=== PATIENT | male | born 1960 | race Caucasian/White ===

== ENCOUNTER 2016-08-02 18:07 | Inpatient (IN) | payer OTHER ==
[2016-08-02] MEDS ORDERED: SODIUM CHLORIDE 0.9% 1,000 ML IV STA (20:42)
--- NOTE | 2016-08-02 20:51 | ED ---
General Adult HPI - General Chief complaint: Recheck/Abnormal Lab/Rx Stated complaint: ALL OVER PAIN, FATIQUE, HX RA Time Seen by Provider: 08/02/16 20:16 Source: patient, family, RN notes reviewed, old records reviewed Mode of arrival: ambulatory Limitations: no limitations - History of Present Illness Initial comments: Chief complaint and history of present illness this 55-year-old male here with his . The patient has multiple complaints first reports that he becomes very short of breath which is walking 10-15 feet is also put on about 90 pounds this year. He feels bloated, hands are swollen. Stomach is swollen and tender. He reports he thinks he is in a rheumatoid flare. Swollen joints everything hurts. He also has a [place] rash in the scrotum and medial thighs. - Related Data Home Medications Medication Instructions Recorded Confirmed Aclidinium [place] [Tudorza 1 puff INHALATION RT-BID 08/02/16 08/02/16 Pressair] Act 80units/Ml 80 units SQ TUFR 08/02/16 08/02/16 Bumetanide [BUMEX] 2 mg PO BID 08/02/16 08/02/16 Cholecalciferol [Vitamin D3] 2,000 unit PO DAILY 08/02/16 08/02/16 Losartan [Cozaar] 50 mg PO DAILY 08/02/16 08/02/16 Metoprolol Succinate (ER) [Toprol 50 mg PO DAILY 08/02/16 08/02/16 Xl] Mometasone/Formoterol [Dulera 200 2 puff INHALATION RT-BID 08/02/16 08/02/16 Mcg/5 Mcg Inhaler] Multivitamins, Thera [Multivitamin] 1 tab PO DAILY 08/02/16 08/02/16 Nitroglycerin Sl Tabs [Nitrostat] 0.4 mg SUBLINGUAL Q5M PRN 08/02/16 08/02/16 Omeprazole 20 mg PO BID 08/02/16 08/02/16 Potassium Chloride ER [K-Dur 20] 20 meq PO DAILY 08/02/16 08/02/16 Rivaroxaban [Xarelto] 15 mg PO HS 08/02/16 08/02/16 Tamsulosin HCl [Flomax] 0.4 mg PO DAILY 08/02/16 08/02/16 Tofacitinib Citrate [Xeljanz] 5 mg PO BID 08/02/16 08/02/16 Allergies Allergy/AdvReac Type Severity Reaction Status Date / Time No Known Allergies Allergy Verified 08/02/16 19:54 Review of Systems ROS Statement: Those systems with pertinent positive or pertinent negative responses have been documented in the HPI. Review of systems patient denies any visual acuity changes no headache. He short of breath with simple exertion but no chest pain. He states he feels as well as follow fluid or swollen legs swollen abdomen swollen. He's been on Lasix and then switched to Demadex. He still gained a fair amount of weight lately. 90 pounds over the past year. Complains of muscle aches and pains as well. He did get his flu shot this year. Nausea but no vomiting no diarrhea. No neuro deficits. All systems were reviewed. Past medical problems significant for using a CPAP machine, heart failure within the past year, COPD, GERD, hyperlipidemia, hypertension, BPH, pulmonary emboli 18 months ago on Xarelto, rheumatoid arthritis. The patient gets twice weekly shots for his RA. The patient's neck was fused, he's also had tonsillectomy. Family history father had lung cancer also strokes. Mother as breast cancer and CHF. Patient denies any ALLERGIES he smokes strongly encouraged to stop denies alcohol use ROS Other: All systems not noted in ROS Statement are negative. Past Medical History Past Medical History: Heart Failure, COPD, GERD/Reflux, Hyperlipidemia, Hypertension, Prostate Disorder, Pulmonary Embolus (PE), Sleep Apnea/CPAP/BIPAP History of Any Multi-Drug Resistant Organisms: None Reported Past Surgical History: Tonsillectomy Additional Past Surgical History / Comment(s): NECK SURGERY Past Psychological History: No Psychological Hx Reported Smoking Status: Current every day smoker Past Alcohol Use History: None Reported Past Drug Use History: None Reported General Exam - General Exam Comments Initial Comments: General: The patient is awake and alert, complaining of shortness of breath with mild exertion. Complains of feeling swollen and edematous hands arms legs abdominal wall. Joints swollen and painful. Vital signs temp 98.4 pulse 120 her story rate 20 pulse ox 92 on room air. Blood pressure 108/72 Eye: Pupils are equal, round and reactive to light, extra-ocular movements are intact ; there is normal conjunctiva bilaterally. No signs of icterus. Ears, nose, mouth and throat: There are moist mucous membranes and no oral lesions. Neck: The neck is supple, there is no tenderness Cardiovascular: Tachycardic heart rate, 120.. No murmur, rub or gallop is appreciated. Respiratory: Lungs are clear to auscultation, respirations are non-labored, breath sounds are equal. No wheezes, stridor, rales, or rhonchi. Short of breath with just walking 10 feet. Gastrointestinal: Abdomen bloated much more the past several days. Decreased appetite. Darker urine.. Back: Chronic lumbosacral pain. Musculoskeletal: Arms hands legs swollen. All joints hurt. History of rheumatoid arthritis Neurological: CN II-XII intact, There are no obvious motor or sensory deficits. Coordination appears grossly intact. Speech is normal. Skin: On a blood thinner multiple ecchymotic areas Limitations: no limitations Course Vital Signs 08/02/16 18:55 Temperature 98.4 F Pulse Rate 120 H Respiratory 20 Rate Blood Pressure 108/72 O2 Sat by Pulse 92 L Oximetry EKG Findings - EKG Comments: EKG Findings:: EKG was done and reviewed at 2022 showing sinus tachycardia with fusion beats. Rate 128, AL interval was 156 QRS 74 QT 3 or 4 QTc 443. Medical Decision Making - Medical Decision Making Medical decision making; patient's white count is 10.5 hemoglobin 13 hematocrit 41, INR 1.2. C-reactive protein is elevated at 44. Troponin less than 0.012 and a BNP of 250. INR 1.2 potassium 3.8 with a BUN 24 creatinine 1.1 with a GFR greater than 60. Glucose 151. The patient's urine essentially clear. Chest x-ray was done and reviewed by radiologist his impression is there is no heart failure nor confluent pneumonic infiltrate. Heart size is normal. There are no hilar masses. Costophrenic angles are clear. Bony thorax is intact. Impression no active cardiopulmonary disease. Normal. As read by Dr. Abraham. X-ray of the abdomen was done and reviewed by radiologist his impression is there is no sign of intestinal obstruction or pneumoperitoneum. Fecal pattern is normal. There is no evidence of a mass. There are no pathologic calcifications over the kidneys. There is mild linear density at the left lung base. Conclusion; mild subsegmental atelectasis at the left lung base. Otherwise negative exam. As dictated by Dr. Abraham The case discussed with Dr. Miles on-call for Dr. Culver. She will request a CT of the abdomen with oral contrast only. He she received morphine for pain and site Medrol 60 mg every 6 IV push. - Lab Data Result diagrams: 08/02/16 19:43 08/02/16 19:43 Lab Results 08/02/16 08/02/16 08/02/16 Range/Units 19:43 19:43 19:43 WBC 10.5 (3.8-10.6) k/uL RBC 4.99 (4.30-5.90) m/uL Hgb 13.0 (13.0-17.5) gm/dL Hct 41.3 (39.0-53.0) % MCV 82.8 (80.0-100.0) fL MCH 26.1 (25.0-35.0) pg MCHC 31.5 (31.0-37.0) g/dL RDW 16.2 H (11.5-15.5) % Plt Count 274 (150-450) k/uL Neutrophils % 64 % Lymphocytes % 26 % Monocytes % 6 % Eosinophils % 1 % Basophils % 1 % Neutrophils # 6.7 (1.3-7.7) k/uL Lymphocytes # 2.8 (1.0-4.8) k/uL Monocytes # 0.7 (0-1.0) k/uL Eosinophils # 0.1 (0-0.7) k/uL Basophils # 0.1 (0-0.2) k/uL Hypochromasia Slight Anisocytosis Slight ESR 71 H (0-15) mm/hr PT (9.0-12.0) sec INR (<1.1) APTT (22.0-30.0) sec Sodium 140 (137-145) mmol/L Potassium 3.8 (3.5-5.1) mmol/L Chloride 103 (98-107) mmol/L Carbon Dioxide 27 (22-30) mmol/L Anion Gap 10 mmol/L BUN 24 H (9-20) mg/dL Creatinine 1.10 (0.66-1.25) mg/dL Est GFR (MDRD) Af Amer >60 (>60 ml/min/1.73 sqM) Est GFR (MDRD) Non-Af >60 (>60 ml/min/1.73 sqM) Glucose 151 H (74-99) mg/dL Calcium 8.5 (8.4-10.2) mg/dL Total Bilirubin 0.4 (0.2-1.3) mg/dL AST 23 (17-59) U/L ALT 33 (21-72) U/L Alkaline Phosphatase 93 (38-126) U/L Total Creatine Kinase 64 (55-170) U/L CK-MB (CK-2) 1.2 (0.0-2.4) ng/mL CK-MB (CK-2) Rel Index 1.9 Troponin I <0.012 (0.000-0.034) ng/mL C-Reactive Protein 44.6 H (<10.0) mg/L NT-Pro-B Natriuret Pep pg/mL Total Protein 6.3 (6.3-8.2) g/dL Albumin 3.4 L (3.5-5.0) g/dL Urine Color Urine Appearance (Clear) Urine pH (5.0-8.0) Ur Specific [place] (1.001-1.035) Urine Protein (Negative) Urine Glucose (UA) (Negative) Urine Ketones (Negative) Urine Blood (Negative) Urine Nitrate (Negative) Urine Bilirubin (Negative) Urine Urobilinogen (<2.0) mg/dL Ur Leukocyte Esterase (Negative) 08/02/16 08/02/16 08/02/16 Range/Units 19:43 19:43 19:43 WBC (3.8-10.6) k/uL RBC (4.30-5.90) m/uL Hgb (13.0-17.5) gm/dL Hct (39.0-53.0) % MCV (80.0-100.0) fL MCH (25.0-35.0) pg MCHC (31.0-37.0) g/dL RDW (11.5-15.5) % Plt Count (150-450) k/uL Neutrophils % % Lymphocytes % % Monocytes % % Eosinophils % % Basophils % % Neutrophils # (1.3-7.7) k/uL Lymphocytes # (1.0-4.8) k/uL Monocytes # (0-1.0) k/uL Eosinophils # (0-0.7) k/uL Basophils # (0-0.2) k/uL Hypochromasia Anisocytosis ESR (0-15) mm/hr PT 11.8 (9.0-12.0) sec INR 1.2 (<1.1) APTT 26.8 (22.0-30.0) sec Sodium (137-145) mmol/L Potassium (3.5-5.1) mmol/L Chloride (98-107) mmol/L Carbon Dioxide (22-30) mmol/L Anion Gap mmol/L BUN (9-20) mg/dL Creatinine (0.66-1.25) mg/dL Est GFR (MDRD) Af Amer (>60 ml/min/1.73 sqM) Est GFR (MDRD) Non-Af (>60 ml/min/1.73 sqM) Glucose (74-99) mg/dL Calcium (8.4-10.2) mg/dL Total Bilirubin (0.2-1.3) mg/dL AST (17-59) U/L ALT (21-72) U/L Alkaline Phosphatase (38-126) U/L Total Creatine Kinase (55-170) U/L CK-MB (CK-2) (0.0-2.4) ng/mL CK-MB (CK-2) Rel Index Troponin I (0.000-0.034) ng/mL C-Reactive Protein (<10.0) mg/L NT-Pro-B Natriuret Pep 250 pg/mL Total Protein (6.3-8.2) g/dL Albumin (3.5-5.0) g/dL Urine Color Yellow Urine Appearance Clear (Clear) Urine pH 5.5 (5.0-8.0) Ur Specific [place] 1.021 (1.001-1.035) Urine Protein Trace H (Negative) Urine Glucose (UA) Negative (Negative) Urine Ketones Trace H (Negative) Urine Blood Negative (Negative) Urine Nitrate Negative (Negative) Urine Bilirubin Negative (Negative) Urine Urobilinogen 3.0 (<2.0) mg/dL Ur Leukocyte Esterase Negative (Negative) Disposition Clinical Impression: Flare of rheumatoid arthritis Disposition: ADMITTED IP TO THIS [facility] Condition: Stable
[2016-08-02 20:56] LABS: Anisocytosis Slight; Basophils # (A) 0.1 k/uL (0-0.2); Basophils % (A) 1 %; CH 26.7; CHCM 32.4; Eosinophils # (A) 0.1 k/uL (0-0.7); Eosinophils % (A) 1 %; HCT 41.3 % (39.0-53.0); HDW 3.21; Hypochromasia Slight; Luc # (Auto) 0.17; Luc % (Auto) 2; Lymphocytes # (A) 2.8 k/uL (1.0-4.8); Lymphocytes % (A) 26 %; MCH 26.1 pg (25.0-35.0); MCHC 31.5 g/dL (31.0-37.0); MCV 82.8 fL (80.0-100.0); Mean Platelet Volume 8.6; Monocytes # (A) 0.7 k/uL (0-1.0); Monocytes % (A) 6 %; Neutrophils # (A) 6.7 k/uL (1.3-7.7); Neutrophils % (A) 64 %; RBC 4.99 m/uL (4.30-5.90); RDW 16.2 % (11.5-15.5); WBC 10.5 k/uL (3.8-10.6); WBC (Perox) 10.43
[2016-08-02] MEDS ORDERED: MORPHINE SULFATE 4 MG/ML SYRINGE IVP STA (20:58)
[2016-08-02] MEDS ORDERED: METOCLOPRAMIDE 5 MG/ML 2 ML VIAL IVP STA (20:58)
[2016-08-02 21:12] LABS: ALT 33 U/L (21-72); AST 23 U/L (17-59); Alkaline Phosphatase 93 U/L (38-126); Anion Gap 10 mmol/L; Blood Urea Nitrogen 24 mg/dL (9-20); C Reactive Protein 44.6 mg/L (<10.0); Calcium 8.5 mg/dL (8.4-10.2); Carbon Dioxide 27 mmol/L (22-30); Chloride 103 mmol/L (98-107); Glucose 151 mg/dL (74-99); Non-African American GFR(MDRD) >60 (>60 ml/min/1.73 sqM); Potassium 3.8 mmol/L (3.5-5.1); Sodium 140 mmol/L (137-145); Total Bilirubin 0.4 mg/dL (0.2-1.3); Total Protein 6.3 g/dL (6.3-8.2)
[2016-08-02 21:13] LABS: Appearance,Urine Clear (Clear); Bilirubin,Urine Negative (Negative); Glucose,Urine (UA) Negative (Negative); Ketones,Urine Trace (Negative); Leukocyte Esterase,Urine Negative (Negative); Nitrite,Urine Negative (Negative); PH, Urine 5.5 (5.0-8.0); Protein,Urine Trace (Negative); Specific Gravity,Urine 1.021 (1.001-1.035); UA Billing (MACRO vs. MICRO) CHEM
[2016-08-02 21:17] LABS: INR 1.2 (<1.1); Partial Thromboplastin Time 26.8 sec (22.0-30.0); Prothrombin Time 11.8 sec (9.0-12.0)
--- NOTE | 2016-08-02 21:19 | XR ---
EXAMINATION TYPE: XR chest 2V DATE OF EXAM: 08/02/2016 9:14 PM COMPARISON: NONE HISTORY: Weakness and difficulty breathing TECHNIQUE: Frontal and lateral views of the chest are obtained. FINDINGS: There is no heart failure nor confluent pneumonic infiltrate. Heart size is normal. There are no hilar masses. Costophrenic angles are clear. Bony thorax is intact. IMPRESSION: No active cardiopulmonary disease. Normal heart.
[2016-08-02 21:22] LABS: Creatine Kinase 64 U/L (55-170)
[2016-08-02 21:34] LABS: Creatine Kinase MB 1.2 ng/mL (0.0-2.4); Troponin I <0.012 ng/mL (0.000-0.034)
[2016-08-02 21:43] LABS: Erythrocyte Sedimentation Rate 71 mm/hr (0-15)
--- NOTE | 2016-08-02 22:17 | XR ---
EXAMINATION TYPE: XR abdomen complete w decub DATE OF EXAM: 08/02/2016 10:06 PM COMPARISON: NONE History abdominal distention. Technique 5 views. FINDINGS: There is no sign of intestinal obstruction or pneumoperitoneum. Fecal pattern is normal. There is no evidence of a mass. There are no pathologic calcifications over the kidneys. There is mild linear den sity at the left lung base.. CONCLUSION: Mild subsegmental atelectasis at the left lung base. Otherwise negative exam.
--- NOTE | 2016-08-02 22:18 | XR ---
EXAMINATION TYPE: XR ankle complete LT DATE OF EXAM: 08/02/2016 10:06 PM COMPARISON: NONE HISTORY: Ankle pain TECHNIQUE: 3 views FINDINGS: Ankle mortise is anatomic. I see no fracture nor dislocation. Joint spaces are fairly jose antonio l. There is mild soft tissue swelling around the ankle joint. IMPRESSION: Mild soft tissue swelling. No fracture.
[2016-08-02] MEDS ORDERED: methylPREDNISolone SOD SUCCI 125 MG/2 ML VIAL IV STA (23:03)
[2016-08-02] MEDS ORDERED: IOHEXOL 350 MG/ML 25 ML BOTTLE (ORAL USE) PO PRN (23:04)
[2016-08-02] MEDS ORDERED: NALOXONE 0.4 MG/ML 1 ML VIAL IV PRN (23:07)
[2016-08-03] MEDS: SODIUM CHLORIDE 0.9% 1,000 ML IV SCH (00:52)
[2016-08-03] MEDS: MORPHINE SULFATE 4 MG/ML SYRINGE IV PRN ×3 (01:31→14:51)
--- NOTE | 2016-08-03 01:40 | CT ---
EXAMINATION TYPE: CT abdomen pelvis wo con DATE OF EXAM: 08/03/2016 1:11 AM COMPARISON: NONE HISTORY: abdominal distention, decreased appetite CT DLP: 1890.30 mGycm Automated exposure control for dose reduction was used. FINDINGS: There is minimal subpleural interstitial infiltrate at the lung bases. Heart size is normal. There is no pleural effusion. Liver spleen pancreas appear normal. Gallbladder appears normal. Bile ducts are not dilated. There is no adrenal mass. The kidneys have normal size and contour. There is no hydronephrosis. There is no r etroperitoneal adenopathy. There is no ascites. Appendix appears normal. Bladder distends smoothly. T here is minimal prostatic calcification. I see no intestinal wall thickening. There are no dilated lo ops. I see no bony destructive process.. IMPRESSION: MINIMAL FIBROTIC CHANGE AT THE LUNG BASES. NO SIGN OF ACUTE ABDOMEN AND PELVIS. NORMAL APPENDIX.
[2016-08-03] MEDS: methylPREDNISolone SOD SUCCI 125 MG/2 ML VIAL IV SCH ×3 (06:26→22:04)
[2016-08-03] MEDS: SYMBICORT 160-4.5 MCG INHALER INHALATION SCH ×2 (07:41→21:10)
[2016-08-03] MEDS: TIOTROPIUM 18 MCG/PUFF INHALER INHALATION SCH (07:41)
[2016-08-03] MEDS ORDERED: PANTOPRAZOLE 40 MG/10 ML VIAL IV SCH (09:00)
[2016-08-03] MEDS ORDERED: BUMETANIDE 1 MG TAB PO SCH (09:00)
[2016-08-03] MEDS ORDERED: POTASSIUM CHLORIDE ER 20 MEQ TAB.ER PO SCH (09:00)
[2016-08-03] MEDS ORDERED: TOFACITINIB CITRATE 5 MG PO SCH (09:00)
[2016-08-03] MEDS: LOSARTAN 50 MG TAB PO SCH (09:20)
[2016-08-03] MEDS: TAMSULOSIN 0.4 MG CAP.ER.24H PO SCH (09:20)
[2016-08-03] MEDS: METOPROLOL SUCCINATE (ER) 50 MG TAB.ER.24H PO SCH (09:20)
[2016-08-03] MEDS: NICOTINE 21MG/24HR PATCH TRANSDERM SCH (11:11)
[2016-08-03] MEDS ORDERED: RX INFO: IV CONTRAST WAS GIVEN 1 EACH MISC MISCELLANE PRN (13:52)
[2016-08-03] MEDS: BUMETANIDE 0.25 MG/ML 10 ML VIAL IV SCH ×2 (14:37→22:44)
[2016-08-03] MEDS: METOLAZONE 2.5 MG TAB PO SCH (14:42)
[2016-08-03] MEDS: POTASSIUM CHLORIDE ER 20 MEQ TAB.ER PO SCH ×2 (14:42→22:44)
[2016-08-03] MEDS: FLUCONAZOLE 100 MG TAB PO SCH (14:43)
--- NOTE | 2016-08-03 15:18 | P.CNPUL ---
History of Present Illness Consult date: 08/03/16 Reason for consult: dyspnea Chief complaint: SOB History of present illness: This is a 55 year old male who presented to the emergency department with multiple complaints. The patient states he has been in 3 other hospitals for the same issues. The patient states he was diagnosed with rheumatoid arthritis and since then his life has gone downhill. The patient states that he is skiing over 90 pounds this year. He states he was on steroids for several years but has not been on them in a year. He states that he gets short of breath walking just a few feet. His hands and legs are swollen. He states his abdomen is bloated and he hasn't had a bowel movement in 3 days. He states that he is now taking Xeljanz and Acthar for his rheumatoid arthritis. He states that he had a pulmonary function test done a few months ago and was told it was normal. He does smoke 1 pack per day for the last 30 years. He states there is nothing wrong with his lungs it's all fluid and weight gain. He denies cough, fevers, chills. He also has a history of pulmonary embolism and is on Xarelto. He states he was taking Lasix at home but it was no longer making him urinate so he was changed to Bumex. The Bumex works in the morning when he takes that he usually urinates 4 times but his afternoon dose does not make him urinate at all. The patient is on Dulera and Tudorza. The patient states he underwent a sleep study about a week ago and was diagnosed with obstructive sleep apnea. He was told it was life-threatening and was given a BiPAP. Review of Systems All systems: negative Past Medical History Past Medical History: Heart Failure, COPD, Hyperlipidemia, Hypertension, Pulmonary Embolus (PE), Sleep Apnea/CPAP/BIPAP History of Any Multi-Drug Resistant Organisms: None Reported Past Surgical History: Tonsillectomy Additional Past Surgical History / Comment(s): NECK SURGERY Past Anesthesia/Blood Transfusion Reactions: No Reported Reaction Past Psychological History: No Psychological Hx Reported Smoking Status: Current every day smoker Past Alcohol Use History: None Reported Past Drug Use History: None Reported - Past Family History Mother Family Medical History: Cancer, Congestive Heart Failure (CHF) Additional Family Medical History / Comment(s): breast cancer Father Family Medical History: Cancer, COPD, CVA/TIA Additional Family Medical History / Comment(s): lung cancer Medications and Allergies Home Medications Medication Instructions Recorded Confirmed Type Aclidinium [place] [Tudorza 1 puff INHALATION RT-BID 08/02/16 08/02/16 History Pressair] Act 80units/Ml 80 units SQ TUFR 08/02/16 08/02/16 History Bumetanide [BUMEX] 2 mg PO BID 08/02/16 08/02/16 History Cholecalciferol [Vitamin D3] 2,000 unit PO DAILY 08/02/16 08/02/16 History Losartan [Cozaar] 50 mg PO DAILY 08/02/16 08/02/16 History Metoprolol Succinate (ER) [Toprol 50 mg PO DAILY 08/02/16 08/02/16 History Xl] Mometasone/Formoterol [Dulera 200 2 puff INHALATION RT-BID 08/02/16 08/02/16 History Mcg/5 Mcg Inhaler] Multivitamins, Thera [Multivitamin] 1 tab PO DAILY 08/02/16 08/02/16 History Nitroglycerin Sl Tabs [Nitrostat] 0.4 mg SUBLINGUAL Q5M PRN 08/02/16 08/02/16 History Omeprazole 20 mg PO BID 08/02/16 08/02/16 History Potassium Chloride ER [K-Dur 20] 20 meq PO DAILY 08/02/16 08/02/16 History Rivaroxaban [Xarelto] 15 mg PO HS 08/02/16 08/02/16 History Tamsulosin HCl [Flomax] 0.4 mg PO DAILY 08/02/16 08/02/16 History Tofacitinib Citrate [Xeljanz] 5 mg PO BID 08/02/16 08/02/16 History Allergies Allergy/AdvReac Type Severity Reaction Status Date / Time No Known Allergies Allergy Verified 08/02/16 19:54 Physical Exam Osteopathic Statement: *. No significant issues noted on an osteopathic structural exam other than those noted in the History and Physical/Consult. Vitals: Vital Signs Temp Pulse Pulse Resp BP BP Pulse Ox 08/03/16 14:43 96.1 F L 102 H 24 129/83 94 L 08/03/16 11:36 105 H 18 92 L 08/03/16 07:00 94.4 F L 98 18 136/84 94 L 08/02/16 23:29 105 H 20 132/70 94 L Intake and Output 08/03/16 08/03/16 08/03/16 06:59 14:59 22:59 Intake Total 1080 Output Total 1000 Balance 80 Intake: Oral 1080 Output: Urine 1000 Other: Voiding Method Toilet Urinal # Voids 1 2 Weight 133.5 kg Gen.: Patient is alert and oriented 3, no acute distress, morbidly obese, enlarged neck circumference, central obesity Cardiovascular: Regular rate and rhythm, S1/S2 Lungs: Clear to auscultation bilaterally no wheezes rales or rhonchi Abdomen: Soft, mildly diffusely tender to palpation, protuberant abdomen, positive bowel sounds Extremities: 2+ pitting edema Results - Laboratory Findings CBC and BMP: 08/02/16 19:43 08/02/16 19:43 PT/INR, D-dimer PT 11.8 sec (9.0-12.0) 08/02/16 19:43 INR 1.2 (<1.1) 08/02/16 19:43 - Diagnostic Findings Chest x-ray: report reviewed, image reviewed Assessment and Plan Plan: Acute exacerbation of CHF, suspect cor pulmonale Suspect Pulmonary hypertension Obstructive sleep apnea, very severe with an AHI of 93, on BiPAP with 3 L of oxygen bled in Likely underlying COPD Hypertension Proteinuria Morbid obesity Rheumatoid arthritis History of pulmonary embolism, on Xarelto Hyperglycemia Active tobacco abuse O2 to maintain saturation greater than equal to 88% Patient has home BiPAP, use nightly and with naps with 3L O2 bled in Diuresis, consult nephrology Smoking cessation highly recommended Check echocardiogram Stool softeners Decrease steroids I/O, daily weight Blood sugar control Limit fluid intake, fluid restriction Accu-Cheks and insulin sliding scale Symbicort and Spiriva Pending CT of the neck and chest GI and DVT prophylaxis Time with Patient: Greater than 30
--- NOTE | 2016-08-03 16:46 | CT ---
EXAMINATION TYPE: CT neck chest w con DATE OF EXAM: 08/03/2016 4:19 PM COMPARISON: NONE HISTORY: 55-year-old male with neck swelling and Shortness of breath. Pulmonary fibrosis, rheumatoid, difficulty breathing. CT DLP: 2157.5 mGycm Automated exposure control for dose reduction was used. TECHNIQUE: Contiguous axial scanning of the neck and chest is performed following , patient injected with 100 mL of Omnipaque 300. Axial images are obtained, coronal and sagittal reformatted images are reviewed. FINDINGS: NECK: Visualized intracranial structures, orbits and globes, and mastoid air cells show no gross abnormal b david. There is moderate lobulated mucosal thickening within the inferior left maxillary sinus and righ tward nasal septal deviation. The nasopharynx is clear. There is some asymmetry of the right vallecular space without any discrete soft tissue abnormality, probably positional. The glottic and subglottic airway as well as the tracheal column are clear. Thyroid gland, submandibular glands, and parotid glands appear satisfactory. No cervical lymphadenopathy seen. There is abundant subcutaneous fat. CHEST: Heart is normal size without pericardial effusion. Ascending aorta measures at the upper limits of normal in size at 3.5 cm. There is conventional arch vessel branching anatomy. Prominent borderline enlarged 1 cm anterior mediastinal lymph node, axial image 30. Otherwise, no tho racic lymphadenopathy by CT size criteria. Mild bilateral gynecomastia. There is moderate centrilobular emphysema. Calcified granuloma posterior right midlung and some patch y dependent atelectasis in the posterior mid to lower lungs. There is very 6 mm subpleural pulmonary nodule posterior left upper lobe axial image 26. Some minimal patchy subpleural opacity anterior left upper lobe axial image 31 probably pleural parenchymal scarr ing. Otherwise, no consolidation or pleural effusion. Visualized upper abdomen shows a 1.7 cm hypodense lesion along the peripheral margin of the mid liver likely a cyst. Bones: No osseous destructive process. IMPRESSION: NECK: 1. Asymmetric effacement of the right vallecular space likely on a positional basis. No discrete mass is visualized. Consider direct visualization. 2. Abundant subcutaneous fat. No suspicious mass or lymphadenopathy. CHEST: 1. COPD with moderate centrilobular emphysema. 2. A 6 mm subpleural pulmonary nodule posterior left upper lobe and a borderline enlarged 1 cm anteri or mediastinal lymph node. A six-month follow-up exam can reassess both of these findings and ensure stability. 3. Some minimal patchy opacity anterior left upper lobe probably pleural parenchymal scarring. Correl ate for any acute symptoms to exclude a small infectious/inflammatory focus.
[2016-08-03 16:59] LABS: Glucose,Whole Blood 177 mg/dL (75-99)
[2016-08-03] MEDS: DOCUSATE 100 MG CAP PO SCH (17:03)
[2016-08-03] MEDS: INSULIN LISPRO (humaLOG) 300 UNIT/3 ML VIAL SQ SCH ×2 (17:05→22:08)
[2016-08-03 20:45] LABS: Glucose,Whole Blood 251 mg/dL (75-99)
[2016-08-03 21:27] LABS: Hemoglobin A1C 5.5 % (4.2-6.1)
[2016-08-03] MEDS: RIVAROXABAN 15 MG TAB PO SCH (22:05)
--- NOTE | 2016-08-03 23:02 | P.HPIM ---
History of Present Illness H&P Date: 08/03/16 Chief Complaint: Weight gain edema generalized pain and difficulty in ambulating This is a 55-year-old gentleman patient of Dr. Culver. he has underlying history of rheumatoid arthritis followed by Dr. Egan. He currently is on Xeljance. He also has hypertension COPD chronic tobacco dependency hyperlipidemia and prior history of ulnar emboli obstructive sleep apnea. He presented the emergency room with multiple complaints. He is primary concern is shortness of breath with difficulty off ambulating, dyspnea on exertion, conversational dyspnea, reduced endurance, increasing leg swelling by the swelling hand swelling, he gained 90 pounds in the past 11 months, the symptoms has progressed for the past 1 week requiring his ER evaluation this time. Patient denies any recent steroid use at least over a year ago, patient was not diagnosed to have any congestive heart failure Before or any nephrotic syndrome or previous diabetes mellitus or [place].. Patient is on long-term anticoagulation for which no lapses of treatment was noted. He is on several toe for a spontaneous pulmonary emboli, he is unaware off the full workup that was made for him however he said that there was no pathological explanation for that PE. 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 He complains of increasing abdominal distention, he complains of a right ankle sprain and yeast in the groin area number swelling in the supraclavicular area bilaterally with protrusion no soft tissue mass palpated except for lymph swelling. 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 CAT scan of the abdomen and pelvis was performed secondary to abdominal distention that shows no hepatosplenomegaly, liver or gallbladder unremarkable, no hydronephrosis, no retroperitoneal adenopathy, no ascites, no bladder distention no abdominal dilated loop distention, no bony destructive processes, there is fibrotic change at the lung bases with minimal subpleural interstitial infiltrate at the lung bases no pleural effusion Review of Systems Constitutional: Reports as per HPI, Reports chronic pain, Reports lethargy, Reports weakness, Reports weight gain, Denies anorexia, Denies chills, Denies chronic headaches, Denies daytime sleepiness, Denies fatigue, Denies fever, Denies malaise, Denies night sweats, Denies poor appetite, Denies sweats, Denies weight loss Ears, nose, mouth and throat: Reports as per HPI, Denies ant. neck pain, Denies bleeding gums, Denies dental pain, Denies dysphagia, Denies epistaxis, Denies headache, Denies hoarseness, Denies mouth pain, Denies nasal congestion, Denies nasal discharge, Denies neck fullness/pressure, Denies neck lump, Denies nose pain, Denies odynophagia, Denies post-nasal drip, Denies sinus pain, Denies sinus pressure, Denies swelling in mouth, Denies swelling in throat, Denies sore throat, Denies vertigo, Denies voice changes Cardiovascular: Reports as per HPI, Reports decreased exercise tolerance, Reports dyspnea on exertion, Reports edema, Reports shortness of breath, Denies chest pain, Denies claudication, Denies high blood pressure, Denies irregular heart beat, Denies leg edema, Denies lightheadedness, Denies orthopnea, Denies palpitations, Denies paroxysmal nocturnal dyspnea, Denies phlebitis, Denies rapid heart beat, Denies syncope Respiratory: Reports as per HPI, Reports dyspnea, Denies congestion, Denies cough, Denies cough with sputum, Denies excessive sputum, Denies hemoptysis, Denies home oxygen, Denies pain, Denies pain on inspiration, Denies pleurisy, Denies respiratory infections, Denies sleep apnea, Denies snoring, Denies wheezing Gastrointestinal: Reports as per HPI, Reports bloating, Denies abdominal pain, Denies belching, Denies BRBPR, Denies change in bowel habits, Denies coffee ground emesis, Denies constipation, Denies diarrhea, Denies dyspepsia, Denies early satiety, Denies excessive gas, Denies heartburn, Denies hematemesis, Denies hematochezia, Denies indigestion, Denies jaundice, Denies lactose intolerance, Denies loss of appetite, Denies melena, Denies nausea, Denies vomiting Genitourinary: Reports as per HPI, Denies decreased libido, Denies difficulties fathering child, Denies discharge, Denies dysuria, Denies erectile dysfunction, Denies flank pain, Denies genital pain, Denies genital sores, Denies hematuria, Denies impotence, Denies incontinence, Denies kidney stones, Denies nocturia, Denies polyuria, Denies testicular lump, Denies testicular pain, Denies urinary frequency, Denies urinary hesitancy, Denies urinary retention Musculoskeletal: Reports as per HPI, Denies arm numbness/tingling, Denies atrophy, Denies fractures, Denies frequent falls, Denies gait dysfunction, Denies hot joints, Denies leg numbness/tingling, Denies limitation of motion, Denies loss of height, Denies low back pain, Denies morning stiffness, Denies muscle cramps, Denies muscle weakness, Denies myalgias, Denies neck pain, Denies neck stiffness, Denies prior amputations, Denies redness of joints, Denies shooting arm pain, Denies shooting leg pain Integumentary: Reports as per HPI, Denies acne, Denies boils, Denies brittle nails, Denies change in hair/nails, Denies color changes, Denies darkening of skin, Denies depigmentation, Denies dryness, Denies foot/leg ulcers, Denies growths, Denies hirsutism, Denies lesions, Denies onychomycosis, Denies pruritus , Denies rash, Denies sores, Denies striae, Denies unusual bruising, Denies wounds Neurological: Reports as per HPI, Reports gait dysfunction, Denies aphasia, Denies ataxia, Denies balance difficulties, Denies burning pain, Denies change in mentation, Denies change in smell/taste, Denies change in speech, Denies confusion, Denies convulsions, Denies double vision, Denies head injury, Denies headaches, Denies hearing difficulties, Denies lack of coordination, Denies loss of vision, Denies memory loss, Denies migraines, Denies motor disturbance, Denies numbness, Denies paralysis, Denies paresthesias, Denies seizures, Denies sensory deficit, Denies spasticity, Denies syncope, Denies tic, Denies tingling , Denies transient paralysis, Denies tremors, Denies vertigo, Denies weakness, Denies visual changes Psychiatric: Reports as per HPI, Reports change in sleep habits Endocrine: Reports as per HPI, Denies cold intolerance, Denies deepening of the voice, Denies excessive sweating, Denies excessive thirst, Denies fatigue, Denies flushing, Denies heat intolerance, Denies high blood sugars, Denies increase in ring/shoe/hat size, Denies low blood sugars, Denies nocturia, Denies palpitations, Denies polydipsia, Denies polyphagia, Denies polyuria, Denies proptosis, Denies recent glucocorticoid use, Denies thyroid mass, Denies weight change Hematologic/Lymphatic: Reports as per HPI, Denies easy bleeding, Denies easy bruising, Denies lymphadenopathy, Denies lymphedema, Denies thrombophilia Allergic/Immunologic: Reports as per HPI, Denies allergic rhinitis, Denies anaphylaxis, Denies angioedema, Denies gluten intolerance, Denies persistent infections, Denies seasonal allergies, Denies urticaria, Denies wheezing Past Medical History Past Medical History: Heart Failure, COPD, Hyperlipidemia, Hypertension, Pulmonary Embolus (PE), Sleep Apnea/CPAP/BIPAP History of Any Multi-Drug Resistant Organisms: None Reported Past Surgical History: Tonsillectomy Additional Past Surgical History / Comment(s): NECK SURGERY Past Anesthesia/Blood Transfusion Reactions: No Reported Reaction Past Psychological History: No Psychological Hx Reported Smoking Status: Current every day smoker Past Alcohol Use History: None Reported Past Drug Use History: None Reported - Past Family History Mother Family Medical History: Cancer, Congestive Heart Failure (CHF) Additional Family Medical History / Comment(s): breast cancer Father Family Medical History: Cancer, COPD, CVA/TIA Additional Family Medical History / Comment(s): lung cancer Sister(s) Family Medical History: Deep Vein Thrombosis (DVT) Medications and Allergies Home Medications Medication Instructions Recorded Confirmed Type Aclidinium [place] [Tudorza 1 puff INHALATION RT-BID 08/02/16 08/02/16 History Pressair] Act 80units/Ml 80 units SQ TUFR 08/02/16 08/02/16 History Bumetanide [BUMEX] 2 mg PO BID 08/02/16 08/02/16 History Cholecalciferol [Vitamin D3] 2,000 unit PO DAILY 08/02/16 08/02/16 History Losartan [Cozaar] 50 mg PO DAILY 08/02/16 08/02/16 History Metoprolol Succinate (ER) [Toprol 50 mg PO DAILY 08/02/16 08/02/16 History Xl] Mometasone/Formoterol [Dulera 200 2 puff INHALATION RT-BID 08/02/16 08/02/16 History Mcg/5 Mcg Inhaler] Multivitamins, Thera [Multivitamin] 1 tab PO DAILY 08/02/16 08/02/16 History Nitroglycerin Sl Tabs [Nitrostat] 0.4 mg SUBLINGUAL Q5M PRN 08/02/16 08/02/16 History Omeprazole 20 mg PO BID 08/02/16 08/02/16 History Potassium Chloride ER [K-Dur 20] 20 meq PO DAILY 08/02/16 08/02/16 History Rivaroxaban [Xarelto] 15 mg PO HS 08/02/16 08/02/16 History Tamsulosin HCl [Flomax] 0.4 mg PO DAILY 08/02/16 08/02/16 History Tofacitinib Citrate [Xeljanz] 5 mg PO BID 08/02/16 08/02/16 History Allergies Allergy/AdvReac Type Severity Reaction Status Date / Time No Known Allergies Allergy Verified 08/02/16 19:54 Physical Exam Vitals: Vital Signs Temp Pulse Pulse Resp BP BP Pulse Ox 08/03/16 11:36 105 H 18 92 L 08/03/16 07:00 94.4 F L 98 18 136/84 94 L 08/02/16 23:29 105 H 20 132/70 94 L Intake and Output 08/02/16 08/03/16 08/03/16 22:59 06:59 14:59 Intake Total 540 Balance 540 Intake: Oral 540 Other: Voiding Method Toilet Urinal # Voids 1 Weight 133.5 kg - Constitutional General appearance: cooperative, no acute distress - EENT Eyes: anicteric sclerae, EOMI, PERRLA, normal appearance ENT: NA/AT, normal oropharynx - Neck Neck: no lymphadenopathy, normal ROM, no other, no rigidity, no stridor, no thyromegaly - Respiratory Respiratory: bilateral: CTA, negative: diminished, dullness, rales, rhonchi - Cardiovascular Rhythm: regular Heart sounds: normal: S1, S2 Abnormal Heart Sounds: no systolic murmur, no diastolic murmur, no rub, no S3 Gallop, no S4 Gallop, no click, no other leg Peripheral Edema: bilateral: 2+, Other (Hands abdomen) - Gastrointestinal General gastrointestinal: no absent bowel sounds, no decreased bowel sounds, no distended, no hepatomegaly, no hyperactive bowel sounds, normal bowel sounds, no organomegaly, no rigid, no scaphoid, soft, no splenomegaly, no tenderness, no umbilical hernia, no ventral hernia - Integumentary Integumentary: normal, normal turgor - Neurologic Neurologic: CNII-XII intact - Musculoskeletal Musculoskeletal: gait normal, strength equal bilaterally - Psychiatric Psychiatric: A&O x's 3, appropriate affect, intact judgment & insight Results CBC & Chem 7: 08/02/16 19:43 08/02/16 19:43 Labs: Laboratory Results WBC 10.5 k/uL (3.8-10.6) 08/02/16 19:43 RBC 4.99 m/uL (4.30-5.90) 08/02/16 19:43 Hgb 13.0 gm/dL (13.0-17.5) 08/02/16 19:43 Hct 41.3 % (39.0-53.0) 08/02/16 19:43 MCV 82.8 fL (80.0-100.0) 08/02/16 19:43 MCH 26.1 pg (25.0-35.0) 08/02/16 19:43 MCHC 31.5 g/dL (31.0-37.0) 08/02/16 19:43 RDW 16.2 % (11.5-15.5) H 08/02/16 19:43 Plt Count 274 k/uL (150-450) 08/02/16 19:43 Neutrophils % 64 % 08/02/16 19:43 Lymphocytes % 26 % 08/02/16 19:43 Monocytes % 6 % 08/02/16 19:43 Eosinophils % 1 % 08/02/16 19:43 Basophils % 1 % 08/02/16 19:43 Neutrophils # 6.7 k/uL (1.3-7.7) 08/02/16 19:43 Lymphocytes # 2.8 k/uL (1.0-4.8) 08/02/16 19:43 Monocytes # 0.7 k/uL (0-1.0) 08/02/16 19:43 Eosinophils # 0.1 k/uL (0-0.7) 08/02/16 19:43 Basophils # 0.1 k/uL (0-0.2) 08/02/16 19:43 Hypochromasia Slight 08/02/16 19:43 Anisocytosis Slight 08/02/16 19:43 ESR 71 mm/hr (0-15) H 08/02/16 19:43 PT 11.8 sec (9.0-12.0) 08/02/16 19:43 INR 1.2 (<1.1) 08/02/16 19:43 APTT 26.8 sec (22.0-30.0) 08/02/16 19:43 Sodium 140 mmol/L (137-145) 08/02/16 19:43 Potassium 3.8 mmol/L (3.5-5.1) 08/02/16 19:43 Chloride 103 mmol/L (98-107) 08/02/16 19:43 Carbon Dioxide 27 mmol/L (22-30) 08/02/16 19:43 Anion Gap 10 mmol/L 08/02/16 19:43 BUN 24 mg/dL (9-20) H 08/02/16 19:43 Creatinine 1.10 mg/dL (0.66-1.25) 08/02/16 19:43 Est GFR (MDRD) Af Amer >60 (>60 ml/min/1.73 sqM) 08/02/16 19:43 Est GFR (MDRD) Non-Af >60 (>60 ml/min/1.73 sqM) 08/02/16 19:43 Glucose 151 mg/dL (74-99) H 08/02/16 19:43 POC Glucose (mg/dL) 251 mg/dL (75-99) H 08/03/16 20:36 POC Glu Public Weigher ID Leigh Ann Sepulveda 08/03/16 20:[address] Glu mg/dL 111 mg/dL 08/02/16 19:43 Hemoglobin A1c 5.5 % (4.2-6.1) 08/02/16 19:43 Calcium 8.5 mg/dL (8.4-10.2) 08/02/16 19:43 Total Bilirubin 0.4 mg/dL (0.2-1.3) 08/02/16 19:43 AST 23 U/L (17-59) 08/02/16 19:43 ALT 33 U/L (21-72) 08/02/16 19:43 Alkaline Phosphatase 93 U/L (38-126) 08/02/16 19:43 Total Creatine Kinase 64 U/L (55-170) 08/02/16 19:43 CK-MB (CK-2) 1.2 ng/mL (0.0-2.4) 08/02/16 19:43 CK-MB (CK-2) Rel Index 1.9 08/02/16 19:43 Troponin I <0.012 ng/mL (0.000-0.034) 08/02/16 19:43 C-Reactive Protein 44.6 mg/L (<10.0) H 08/02/16 19:43 NT-Pro-B Natriuret Pep 250 pg/mL 08/02/16 19:43 Total Protein 6.3 g/dL (6.3-8.2) 08/02/16 19:43 Albumin 3.4 g/dL (3.5-5.0) L 08/02/16 19:43 Urine Color Yellow 08/02/16 19:43 Urine Appearance Clear (Clear) 08/02/16 19:43 Urine pH 5.5 (5.0-8.0) 08/02/16 19:43 Ur Specific [place] 1.021 (1.001-1.035) 08/02/16 19:43 Urine Protein Trace (Negative) H 08/02/16 19:43 Urine Glucose (UA) Negative (Negative) 08/02/16 19:43 Urine Ketones Trace (Negative) H 08/02/16 19:43 Urine Blood Negative (Negative) 08/02/16 19:43 Urine Nitrate Negative (Negative) 08/02/16 19:43 Urine Bilirubin Negative (Negative) 08/02/16 19:43 Urine Urobilinogen 3.0 mg/dL (<2.0) 08/02/16 19:43 Ur Leukocyte Esterase Negative (Negative) 08/02/16 19:43 Thrombosis Risk Factor Assmnt - DVT/VTE Prophylaxis DVT/VTE Prophylaxis: Pharmacologic Prophylaxis ordered, Mechanical Prophylaxis ordered - Choose All That Apply Any of the Below Risk Factors Present?: Yes Each Factor Represents 1 point: Age 41-60 years, Heart failure (<1month), Obesity (BMI >25), Swollen legs (current) Other Risk Factors: Yes Each Risk Factor Represents 3 Points: History of DVT/PE Other congenital or acquired thrombophilia - If yes, enter type in comment: No Thrombosis Risk Factor Assessment Total Risk Factor Score: 7 Thrombosis Risk Factor Assessment Level: High Risk Assessment and Plan Plan: 1. Generalized anasarca, fluid overload without any evidence of nephrotic syndrome, patient requires IV diuretics in the form of Bumex 2 mg IV twice a day , were going to add Zaroxolyn 2.5 mg daily and modify his diet to include low salt intake. He was on oral Bumex 2 mg twice a day prior to admission, has no response to furosemide when administered prior to admission. echocardiogram will be done. Evaluate for nephrotic syndrome, serum protein electrophoresis and 24-hour urine protein would be requested 2. Progressive shortness of breath with interstitial changes, possible pulmonary fibrosis changes possibly related to rheumatoid lung, patient currently is receiving IV Solu-Medrol 60 mg every 6 hours and laboratories to be obtained to include IgE levels [place] allergy panel, Rohith level, hypersensitivity pneumonitis panel and alpha-1 antitrypsin. Patient denies any pulmonary physician following him, he is on long acting beta agonist and inhaled steroids prior to his admission dulera, which would be switched to Symbicort which is formulary and the facility. The cardiogram was requested and performed echocardiogram will be done to evaluate for pulmonary hypertension and valvular abnormality 3. Rheumatoid arthritis silaswillie has been off prednisone for over a year now 4. BMI of 43 with morbid obesity, patient was advised regarding current structured dietary program to include 1700-calorie diet and improvement of physical activity. 5. Lymph swelling in the supraclavicular region or soft tissue mass cannot be excluded, CAT scan of the chest in soft tissue neck to investigate the shortness of breath and soft tissue mass 6. CK D stage II. Nephrotoxins will be avoided hypotension avoided 7. Hypertension on Cozaar 50 mg daily, and diuretics metoprolol no changes were made except for the diuretics 8. Dysmetabolic syndrome X, hemoglobin A1c will be obtained Accu-Cheks before meals and at bedtime, with NovoLog coverage specially with Solu-Medrol scaling 9. History of pulmonary emboli in the past diagnosed 1 year ago requiring long- term anticoagulation throughout was maintained 10. Obstructive sleep apnea, BiPAP with 3 liters nasal cannula at at bedtime 11. Hyperlipidemia 11. BPH without an lower tract symptomatology 12. DVT prophylaxis on long-term Xarelto 13 Generalized arthralgia possibly aggravated by fibromyalgia and rheumatoid arthritis, Dr. Egan isn't available for consult until after the new year GI prophylaxis Time with Patient: Greater than 30
[2016-08-04] MEDS: FAMOTIDINE 20 MG TAB PO SCH ×2 (00:43→08:33)
[2016-08-04] MEDS: SODIUM CHLORIDE 0.9% 1,000 ML IV SCH (07:08)
--- NOTE | 2016-08-04 07:25 | ECHOF ---
Referral Reason:shortness of breath MEASUREMENTS -------- HEIGHT: 175.3 cm WEIGHT: 133.4 kg BP: 136/84 RVIDd: 2.8 cm (< 3.3) IVSd: 1.4 cm (0.6 - 1.1) LVIDd: 4.7 cm (3.9 - 5.3) LVPWd: 1.3 cm (0.6 - 1.1) IVSs: 1.8 cm LVIDs: 3.3 cm LVPWs: 2.2 cm LA Diam: 3.1 cm (2.7 - 3.8) LAESV Index (A-L): 28.36 ml/m Ao Diam: 3.4 cm (2.0 - 3.7) AV Cusp: 2.3 cm (1.5 - 2.6) LA Diam: 3.6 cm (2.7 - 3.8) MV EXCURSION: 9.371 mm (> 18.000) MV EF SLOPE: 106 mm/s (70 - 150) EPSS: 0.9 cm MV E Rey: 0.82 m/s MV DecT: 201 ms MV A Rey: 1.02 m/s MV E/A Ratio: 0.80 FINDINGS -------- Sinus rhythm. This was a technically adequate study. There is mild concentric left ventricular hypertrophy. Overall left ventricular systolic function is normal with, an EF between 55 - 60 %. The right ventricle is normal in size. Normal LA size by volume 22+/-6 ml/m2. The right atrium is normal in size. The aortic valve is trileaflet and appears structurally normal. Mild mitral annular calcification present. Trace tricuspid regurgitation present. Right ventricular systolic pressure is normal at < 35 mmHg. Pulmonic valve appears structurally normal. The aortic root size is normal. Echo free space may represent effusion or a pericardial fat pad. CONCLUSIONS -------- 1. Sinus rhythm. 2. Trace tricuspid regurgitation present. 3. Right ventricular systolic pressure is normal at < 35 mmHg. 4. Pulmonic valve appears structurally normal. 5. The aortic root size is normal. 6. Echo free space may represent effusion or a pericardial fat pad. 7. This was a technically adequate study. 8. There is mild concentric left ventricular hypertrophy. 9. Overall left ventricular systolic function is normal with, an EF between 55 - 60 %. 10. The right ventricle is normal in size. 11. Normal LA size by volume 22+/-6 ml/m2. 12. The right atrium is normal in size. 13. The aortic valve is trileaflet and appears structurally normal. 14. Mild mitral annular calcification present. STAFF COMMAND AND CONTROL OFFICER: Sunitha Pandey RDCS
[2016-08-04 07:45] LABS: Glucose,Whole Blood 163 mg/dL (75-99)
[2016-08-04] MEDS: methylPREDNISolone SOD SUCCI 125 MG/2 ML VIAL IV SCH ×2 (08:32→22:18)
[2016-08-04] MEDS: TAMSULOSIN 0.4 MG CAP.ER.24H PO SCH (08:32)
[2016-08-04] MEDS: LOSARTAN 50 MG TAB PO SCH (08:33)
[2016-08-04] MEDS: PANTOPRAZOLE 40 MG TABLET PO SCH (08:33)
[2016-08-04] MEDS: INSULIN LISPRO (humaLOG) 300 UNIT/3 ML VIAL SQ SCH ×4 (08:33→22:16)
[2016-08-04] MEDS: POTASSIUM CHLORIDE ER 20 MEQ TAB.ER PO SCH ×2 (08:33→22:18)
[2016-08-04] MEDS: METOLAZONE 2.5 MG TAB PO SCH (08:33)
[2016-08-04] MEDS: DOCUSATE 100 MG CAP PO SCH (08:33)
[2016-08-04] MEDS: METOPROLOL SUCCINATE (ER) 50 MG TAB.ER.24H PO SCH (08:33)
[2016-08-04] MEDS: BUMETANIDE 0.25 MG/ML 10 ML VIAL IV SCH ×2 (08:33→20:27)
[2016-08-04 08:45] LABS: Anisocytosis Slight; Basophils % (A) 0 %; CH 26.2; CHCM 31.4; Eosinophils % (A) 0 %; HCT 43.2 % (39.0-53.0); HDW 3.24; HGB 13.1 gm/dL (13.0-17.5); Hypochromasia Moderate; Luc # (Auto) 0.12; Luc % (Auto) 1; Lymphocytes # (A) 0.9 k/uL (1.0-4.8); Lymphocytes % (A) 5 %; MCH 25.4 pg (25.0-35.0); MCHC 30.4 g/dL (31.0-37.0); MCV 83.5 fL (80.0-100.0); Mean Platelet Volume 7.7; Monocytes # (A) 0.6 k/uL (0-1.0); Monocytes % (A) 3 %; Neutrophils % (A) 92 %; RBC 5.17 m/uL (4.30-5.90); WBC 19.6 k/uL (3.8-10.6); WBC (Perox) 19.85
[2016-08-04] MEDS: MORPHINE SULFATE 4 MG/ML SYRINGE IV PRN (08:46)
[2016-08-04 09:03] LABS: ALT 42 U/L (21-72); AST 23 U/L (17-59); Alkaline Phosphatase 77 U/L (38-126); Anion Gap 15 mmol/L; Blood Urea Nitrogen 28 mg/dL (9-20); Calcium 9.5 mg/dL (8.4-10.2); Carbon Dioxide 31 mmol/L (22-30); Chloride 95 mmol/L (98-107); Glucose 163 mg/dL (74-99); Non-African American GFR(MDRD) >60 (>60 ml/min/1.73 sqM); Potassium 4.3 mmol/L (3.5-5.1); Sodium 141 mmol/L (137-145); Total Bilirubin 0.5 mg/dL (0.2-1.3); Total Protein 7.2 g/dL (6.3-8.2)
[2016-08-04] MEDS: TIOTROPIUM 18 MCG/PUFF INHALER INHALATION SCH (11:52)
[2016-08-04] MEDS: SYMBICORT 160-4.5 MCG INHALER INHALATION SCH ×2 (11:52→21:09)
[2016-08-04 12:14] VITALS: BMI 43.1
[2016-08-04 12:22] LABS: Glucose,Whole Blood 166 mg/dL (75-99)
[2016-08-04] MEDS: NICOTINE 21MG/24HR PATCH TRANSDERM SCH (12:35)
[2016-08-04] MEDS: FLUCONAZOLE 100 MG TAB PO SCH (12:35)
--- NOTE | 2016-08-04 13:07 | US ---
EXAMINATION TYPE: US kidneys/renal and bladder DATE OF EXAM: 08/04/2016 10:55 AM COMPARISON: CT abdomen and pelvis from yesterday CLINICAL HISTORY: Renal failure, history of PE. EXAM MEASUREMENTS: Right Kidney: 10.2 x 6.4 x 5.2 cm Left Kidney: 11.1 x 5.8 x 6.7 cm ANATOMY: Exam is suboptimal secondary to patient's large body habitus. TECHNOLOGIST IMPRESSION: .The kidneys have good color perfusion, and the visualized portion of renal veins are patent. Right Kidney: No hydronephrosis or masses seen Left Kidney: No hydronephrosis or masses seen Bladder: wall appears echogenic and thickened There is no evidence for hydronephrosis at this point in time. Cortical medullary differentiation is maintained. No masses are identified on images saved. The urinary bladder is satisfactorily distend ed without abnormal intraluminal mass. There is perhaps mild wall thickening measuring up to 4 to 5 m m. Underlying cystitis should be excluded clinically. Bilateral distal ureter jets are not seen. A re troaortic left renal vein is noted on recent CT. IMPRESSION: No hydronephrosis is evident bilaterally. Normal Values: Renal Length = 9 - 12cm Bladder Wall: < 0.3cm
[2016-08-04 13:29] LABS: Hemoglobin A1C 6.4 % (4.2-6.1)
--- NOTE | 2016-08-04 14:48 | P.PN ---
Subjective Principal diagnosis: Shortness of breath Patient seen and examined. Patient states he is feeling a little bit better but does not feel ready to go home. He is very concerned about going home and not being able to urinate like he does here. Objective - Vital Signs Vital signs: Vital Signs Temp 97.6 F 08/04/16 07:00 Pulse 110 H 08/04/16 07:00 Resp 20 08/04/16 07:00 BP 145/83 08/04/16 07:00 Pulse Ox 88 L 08/04/16 07:00 Intake & Output 08/03/16 08/04/16 08/04/16 18:59 06:59 18:59 Intake Total 590 480 Output Total 850 2300 1600 Balance -336 -4333 -1829 Weight 132.5 kg 132.5 kg Intake: Oral 590 480 Output: Urine 850 2300 1600 Other: Voiding Method Urinal # Voids 2 1 1 - Exam Gen.: Patient is alert and oriented 3, no acute distress, morbidly obese, enlarged neck circumference, central obesity Cardiovascular: Regular rate and rhythm, S1/S2 Lungs: Clear to auscultation bilaterally no wheezes rales or rhonchi Abdomen: Soft, mildly diffusely tender to palpation, protuberant abdomen, positive bowel sounds Extremities: 2+ pitting edema - Labs CBC & Chem 7: 08/04/16 07:50 08/04/16 07:50 Labs: Abnormal Lab Results - Last 24 Hours (Table) 08/03/16 08/03/16 08/04/16 Range/Units 16:57 20:36 07:33 WBC (3.8-10.6) k/uL MCHC (31.0-37.0) g/dL RDW (11.5-15.5) % Neutrophils # (1.3-7.7) k/uL Lymphocytes # (1.0-4.8) k/uL Chloride (98-107) mmol/L Carbon Dioxide (22-30) mmol/L BUN (9-20) mg/dL Glucose (74-99) mg/dL POC Glucose (mg/dL) 177 H 251 H 163 H (75-99) mg/dL Hemoglobin A1c (4.2-6.1) % TSH (0.465-4.680) mIU/L 08/04/16 08/04/16 08/04/16 Range/Units 07:50 07:50 07:50 WBC 19.6 H (3.8-10.6) k/uL MCHC 30.4 L (31.0-37.0) g/dL RDW 16.0 H (11.5-15.5) % Neutrophils # 18.0 H (1.3-7.7) k/uL Lymphocytes # 0.9 L (1.0-4.8) k/uL Chloride 95 L (98-107) mmol/L Carbon Dioxide 31 H (22-30) mmol/L BUN 28 H (9-20) mg/dL Glucose 163 H (74-99) mg/dL POC Glucose (mg/dL) (75-99) mg/dL Hemoglobin A1c 6.4 H (4.2-6.1) % TSH 0.263 L (0.465-4.680) mIU/L 08/04/16 Range/Units 12:12 WBC (3.8-10.6) k/uL MCHC (31.0-37.0) g/dL RDW (11.5-15.5) % Neutrophils # (1.3-7.7) k/uL Lymphocytes # (1.0-4.8) k/uL Chloride (98-107) mmol/L Carbon Dioxide (22-30) mmol/L BUN (9-20) mg/dL Glucose (74-99) mg/dL POC Glucose (mg/dL) 166 H (75-99) mg/dL Hemoglobin A1c (4.2-6.1) % TSH (0.465-4.680) mIU/L Assessment and Plan Plan: Acute exacerbation of CHF, diastolic, ejection fraction 55-60% Obstructive sleep apnea, very severe with an AHI of 93, on BiPAP with 3 L of oxygen bled in COPD with centrilobular emphysema seen on computed tomography scan 6 mm left upper lobe pulmonary nodule Left upper lobe patchy opacity, likely area of inflammatory focus Hypertension Proteinuria Morbid obesity Rheumatoid arthritis History of pulmonary embolism, on Xarelto Hyperglycemia Active tobacco abuse O2 to maintain saturation greater than equal to 88% Patient has home BiPAP, use nightly and with naps with 3L O2 bled in Diuresis, consult nephrology Smoking cessation highly recommended Stool softeners Decrease steroids I/O, daily weight Blood sugar control Limit fluid intake, fluid restriction Accu-Cheks and insulin sliding scale Symbicort and Spiriva GI and DVT prophylaxis
--- NOTE | 2016-08-04 15:22 | CONS ---
REASON FOR CONSULT: Anasarca. HISTORY OF PRESENT ILLNESS: Patient is a 55-year-old male with a history of rheumatoid arthritis. He was admitted to the hospital with complaints of increasing lower extremity edema and shortness of breath. He states that he improves with IV diuretics in the hospital and once he is discharged on oral diuretics, he starts to develop worsening edema with eventually requires admission. He is currently maintained on IV Bumex 2 mg twice a day along with Zaroxolyn. He has lost about 5 kg since admission and he states he is feeling better. Does have a history of PE. Serum creatinine is at 1.0 mg/dL and UA showed trace protein. He currently has a 24-hour urine in progress for proteinuria. Echocardiogram done on 08/03/2016 shows concentric LVH with ejection fraction 55% to 60%. Right ventricular pressure is normal. Patient denies any recent use of NSAIDs. He states that he had been using NSAIDs previously. PAST MEDICAL HISTORY: Rheumatoid arthritis, COPD, hyperlipidemia, recent PE, obstructive sleep apnea. PAST SURGICAL HISTORY: Tonsillectomy. Social history is positive for smoking every day. Medications at home prior to admission included: 1. Bumex. 2. Vitamin D3. 3. Cozaar. 4. Toprol. 5. Dulera. 6. Nitrostat. 7. Potassium. 8. Xarelto. 9. Flomax. 10. Xeljanz. ALLERGIES: None. On examination, patient is comfortable, awake, alert, oriented x3. He is not in any acute distress, mildly short of breath. Blood pressure is 145/83, heart rate 110 per minute. He is afebrile. HEART: S1 and S2. LUNGS: Bilateral breath sounds are heard. Abdomen is soft, obese. Lower extremities show edema 2+ bilaterally. GROWTH MEDIA MIXER MUSHROOM is grossly intact. Patient is moving all 4 extremities. Labs show sodium 141, potassium 4.3, serum creatinine 1.0. Hemoglobin 13.1. Serum albumin at 3.8 g/dL. UA shows trace protein. No blood is noted. ASSESSMENT: 1. Edema and fluid overload, currently maintained on IV Bumex as well as Zaroxolyn. Patient has diuresed and his weight has decreased. At this time, there is only trace protein noted in his urine; therefore, I doubt he has nephrotic range proteinuria, which would cause the edema and fluid retention. I did review the echocardiogram, which does not reveal any significant compromise in his left ventricular ejection fraction. There may be a component of diastolic dysfunction. The right heart pressures are also not elevated. Patient is advised to continue to avoid the use of any nonsteroidal anti-inflammatory agents which will potentiate salt and fluid retention. He is also advised that he will need close followup as outpatient to adjust the dose of his diuretics, depending upon his weight gain and volume status. 2. Bilateral flank pain. At this time, the urine is fairly clear with no evidence of infection. I will check renal Dopplers to rule out any underlying renal vein thrombosis, since patient has had pulmonary embolism. There is no hematuria noted; therefore, clinically I do not have a high suspicion for it. 3. Rheumatoid arthritis being followed by Dr. Egan as outpatient. 4. Shortness of breath secondary to fluid overload. Continue with current diuretics. PLAN: Maintain patient on fluid restriction and avoid high salt-containing foods. Continue current diuretics. Follow up on the 24-hour urine for protein. I doubt that he has nephrotic range proteinuria, given the trace protein on the UA. Continue to monitor daily weights. Thank you for this consultation. Will continue to follow the patient with you during his hospitalization.
[2016-08-04 17:21] LABS: Glucose,Whole Blood 161 mg/dL (75-99)
[2016-08-04] MEDS ORDERED: BISACODYL 5 MG TABLET.DR PO PRN (18:14)
[2016-08-04 21:27] LABS: Glucose,Whole Blood 197 mg/dL (75-99)
[2016-08-04] MEDS: RIVAROXABAN 15 MG TAB PO SCH (22:18)
[2016-08-05 00:23] VITALS: RESP 20
[2016-08-05 07:22] LABS: Glucose,Whole Blood 165 mg/dL (75-99)
[2016-08-05 07:42] VITALS: BP 124/73; PULSE 85; TEMP 96.2
[2016-08-05] MEDS: INSULIN LISPRO (humaLOG) 300 UNIT/3 ML VIAL SQ SCH ×2 (08:32→12:51)
[2016-08-05 09:11] LABS: Anisocytosis Slight; Basophils % (A) 0 %; CH 26.3; CHCM 31.7; Eosinophils % (A) 0 %; HCT 43.1 % (39.0-53.0); HDW 3.14; HGB 13.5 gm/dL (13.0-17.5); Hypochromasia Slight; Luc # (Auto) 0.09; Luc % (Auto) 1; Lymphocytes # (A) 0.8 k/uL (1.0-4.8); Lymphocytes % (A) 5 %; MCHC 31.4 g/dL (31.0-37.0); Mean Platelet Volume 7.8; Monocytes # (A) 0.6 k/uL (0-1.0); Monocytes % (A) 3 %; Neutrophils # (A) 15.7 k/uL (1.3-7.7); Neutrophils % (A) 92 %; WBC 17.2 k/uL (3.8-10.6); WBC (Perox) 18.39
[2016-08-05 09:32] LABS: ALT 38 U/L (21-72); AST 22 U/L (17-59); Alkaline Phosphatase 73 U/L (38-126); Anion Gap 17 mmol/L; Blood Urea Nitrogen 40 mg/dL (9-20); Calcium 9.3 mg/dL (8.4-10.2); Carbon Dioxide 28 mmol/L (22-30); Chloride 95 mmol/L (98-107); Glucose 248 mg/dL (74-99); Non-African American GFR(MDRD) >60 (>60 ml/min/1.73 sqM); Potassium 3.6 mmol/L (3.5-5.1); Sodium 140 mmol/L (137-145); Total Bilirubin 0.6 mg/dL (0.2-1.3)
[2016-08-05] MEDS: NICOTINE 21MG/24HR PATCH TRANSDERM SCH (10:01)
[2016-08-05] MEDS: BUMETANIDE 0.25 MG/ML 10 ML VIAL IV SCH (10:01)
[2016-08-05] MEDS: POTASSIUM CHLORIDE ER 20 MEQ TAB.ER PO SCH (10:02)
[2016-08-05] MEDS: PANTOPRAZOLE 40 MG TABLET PO SCH (10:02)
[2016-08-05] MEDS: LOSARTAN 50 MG TAB PO SCH (10:02)
[2016-08-05] MEDS: TAMSULOSIN 0.4 MG CAP.ER.24H PO SCH (10:02)
[2016-08-05] MEDS: METOLAZONE 2.5 MG TAB PO SCH (10:02)
[2016-08-05] MEDS: METOPROLOL SUCCINATE (ER) 50 MG TAB.ER.24H PO SCH (10:02)
[2016-08-05] MEDS: FLUCONAZOLE 100 MG TAB PO SCH (10:02)
[2016-08-05] MEDS: methylPREDNISolone SOD SUCCI 125 MG/2 ML VIAL IV SCH (10:02)
[2016-08-05] MEDS: DOCUSATE 100 MG CAP PO SCH (10:03)
[2016-08-05] MEDS: SYMBICORT 160-4.5 MCG INHALER INHALATION SCH (11:26)
[2016-08-05] MEDS: TIOTROPIUM 18 MCG/PUFF INHALER INHALATION SCH (11:26)
--- NOTE | 2016-08-05 11:42 | PN ---
INTERVAL HISTORY: The patient feels at least 50% better than presentation where he is responding well to IV diuretics. The patient states that at home when he takes his water pill it does not make any difference and here in the hospital it seems to be very effective. Patient breathing has improved significantly and states that he is not short of breath while in bed but only when ambulating in the talley. No major events reporting by nursing staff. Patient currently is alert and oriented x3. PHYSICAL EXAMINATION: VITAL SIGNS: Blood pressure 145/83, temperature 97.6, heart rate 99, respiratory rate 20, saturation is 91% on room air and later 97% on 3 liters nasal cannula. LUNGS: Diminished bilaterally. HEART: S1, S2. ABDOMEN: Soft, nontender. Positive bowel sounds in all 4 quadrants. LOWER EXTREMITIES: Less edema, as above. SKIN: No new rash. Imaging and labs: White blood count seems to be elevated at 19.6. Platelets and hemoglobin within acceptable range. Kidney function with normal findings except for BUN slightly elevated at 28. Glucose is fluctuating between 161 and 163. Hemoglobin A1c was found to be 6.4 and TSH is slightly low at 0.263. Free T4 was within normal limit. ASSESSMENT AND PLAN: 1. Acute diastolic he fluid overload status. The patient responded well to IV diuretics regimen and seems to be ( ). Will continue monitoring his weight daily, continue I's and O's and continue Bumex and Zaroxolyn and follow kidney function closely. We will continue with the IV medication and hospital monitoring until the patient is significantly improved to reduce risk of bounce back to the hospital and risk of having another episode of congestive heart failure. Discussed with Dr. Brown from nephrology. 2. Rheumatoid arthritis, followed by camera operator outpatient. Seems to be stable at this point. 3. Morbid obesity. Patient consulted regarding weight loss and ( ). 4. Leukocytosis. 5. Chronic obstructive pulmonary disease with obstructive sleep apnea. Will continue current inhalers regimen. Will supplement his oxygen to maintain his oxygenation above 88%.. Pulmonary is following. 6. Hypertension. Chest pains appear controlled. 7. Chronic back pain and arthritis pain due to rheumatoid arthritis. The patient responded well to morphine and would like to be discharged on something narcotic. 8. Tobacco dependency. Consulted regarding smoking cessation. Continue nicotine patch. 9. Benign prostatic hypertrophy. We will continue Flomax. Prognosis is fair.
[2016-08-05 12:05] LABS: Glucose,Whole Blood 149 mg/dL (75-99)
--- NOTE | 2016-08-05 14:42 | PN ---
Patient is seen for follow-up for edema. There was trace proteinuria noted on his urinalysis. A 24-hour urine was done which did not reveal any significant underlying proteinuria. The report is not clear now on the 24 hour urine volume as it says not reportable. Patient's volume status has improved significantly, and he is scheduled for discharge today. His serum creatinine has been at 1.0 mg/dL. He is currently maintained on Bumex 2 mg IV b.i.d. On examination, blood pressure is 124/73, heart rate 85 per minute. He is afebrile. Examination of the heart S1 and S2. LUNGS: Decreased breath sounds in bases. Exam of the lower extremities shows edema 2+ bilaterally. REPAIRER exam is grossly intact. Patient is moving all 4 extremities. Labs show sodium 140, potassium 3.6, serum creatinine 1.07. Hemoglobin at 13.5 g/dL. ASSESSMENT: 1. Lower extremity edema and volume overload unlikely to be related to the kidneys. There was only trace protein in the urinalysis. 24-hour urine for protein states that it is nonreportable. I am not clear what means ( ) does not have significant proteinuria. Patient can be discharged from nephrology standpoint. He will continue with Bumex 2 mg b.i.d. along with Zaroxolyn for now. He will need close follow-up as outpatient to adjust dose of diuretics, depending upon his volume status. 2. Rheumatoid arthritis, being followed by rheumatology. Patient had been receiving prednisone and Solu-Medrol here and he states he is feeling better and wants to continue with small dose of steroids until his appointment with rheumatology. PLAN: Patient can be discharged from nephrology standpoint. Follow up as outpatient in about one week's time. Continue Bumex 2 mg IV b.i.d. along with Zaroxolyn 5 b.i.d. for now. Patient is advised to decrease his Lanoxin if his weight continues to decline.
[2016-08-07 11:54] LABS: Alternaria alternata IgE <0.35 kU/L (<0.35); Asperg. fumagatus IgE <0.35 kU/L (<0.35); Asperg. fumagatus IgE Class CLASS 0; Cat Epith & Dander IgE <0.35 kU/L (<0.35); Cat Epith & Dander IgE Class CLASS 0; Clad herbarum IgE <0.35 kU/L (<0.35); Clad herbarum IgE Class CLASS 0; Com. Pigweed IgE <0.35 kU/L (<0.35); Com. Pigweed IgE Class CLASS 0; Common Ragweed IgE Class CLASS 0; Cow's Milk IgE Class CLASS 0; Dermato. farinae IgE <0.35 kU/L (<0.35); Dermato. farinae IgE Class CLASS 0; House Dust (Greer) IgE <0.35 kU/L (<0.35); House Dust (Greer) IgE Class CLASS 0; Maple (Box Elder) IgE <0.35 kU/L (<0.35); Maple (Box Elder) IgE Class CLASS 0; Penicillium notatum IgE Class CLASS 0; Timothy Grass IgE <0.35 kU/L (<0.35); Timothy Grass IgE Class CLASS 0
--- NOTE | 2016-08-08 12:34 | DS ---
DATE OF ADMISSION: 08/03/2016 DATE OF DISCHARGE: 08/05/2016 ADMISSION DIAGNOSES: 1. Acute congestive heart failure exacerbation with fluid overload status. 2. Morbid obesity. 3. Rheumatoid arthritis. 4. Abdominal pain. DISCHARGE DIAGNOSES: 1. Acute congestive heart failure exacerbation with fluid overload status. 2. Morbid obesity. 3. Rheumatoid arthritis. 4. Abdominal pain. IMAGING AND PROCEDURES: Abdominal ultrasound which revealed normal anatomy. HOSPITAL COURSE: This is a 55-year-old male with past medical history significant for rheumatoid arthritis and multiple other comorbidities, presented to the hospital with worsening short of breath. Patient stated that he takes Bumex at home but has not been as effective as he is not urinating after taking the Bumex. Patient was ( ) according to his story for more than 50 pounds weight gain, started on IV diuretics and lost 20 pounds during his hospital stay. Patient was started on Bumex IV twice daily with added Zaroxolyn and responded well. Patient was able to ambulate in the room, said that he is back at baseline and feels that he can go home but patient requested to be discharged on oral dose of steroids at the [facility] made his rheumatoid arthritis symptoms improve during the hospital stay. Patient was discharged on Bumex 2 mg twice daily, Zaroxolyn 5 mg twice daily and asked to take extra dose of Bumex and Zaroxolyn if experienced more than 2 pounds weight gain, and to check on his weight every other day on outpatient basis. Patient also asked to follow up with his primary care physician within 2 to 3 days and followup with Nephrology within 1 week. Plans discussed with Dr. Brown and with the patient in front of his and he is agreeable for the close monitoring and he understands that Zaroxolyn and Bumex can affect his electrolytes and he needs to check on his electrolytes in 2 to 3 days with his primary care physician. Patient also understands that he is started on prednisone 20 mg p.o. daily, but that needs to be monitored and titrated by his primary care physician outpatient and he is not supposed to stop taking the medication all of a sudden. Patient understands that followup is essential in his care giving the multiple comorbidities, and multiple medical problems and complex medical picture and he admits understanding and would like to follow up outpatient. Patient was discharged in stable condition. Discharge process 45 minutes.
[2016-08-09 12:47] LABS: Mis test requested (Non-blood) 24Hr Ur Totl Protein
[2016-08-15 10:44] LABS: Mis test requested (Blood) Hypersens.Pneum.Eval
== END 2016-08-05 14:24 | disposition home or self-care (01) | DRG 292 ==
LOC: EC 18:07 → 4MS4W 23:07 → OBSVTOIN 08-03 15:43
PROVIDERS: ADMIT Family Medicine; ATTEND Family Medicine
DX: I11.0 Hypertensive heart disease with heart failure (principal); J98.11 Atelectasis; E88.81 Metabolic syndrome and other insulin resistance; J44.9 Chronic obstructive pulmonary disease, unspecified; Z68.41 Body mass index [BMI] 40.0-44.9, adult; B37.2 Candidiasis of skin and nail; E66.01 Morbid (severe) obesity due to excess calories; D72.829 Elevated white blood cell count, unspecified; E78.5 Hyperlipidemia, unspecified; I50.33 Acute on chronic diastolic (congestive) heart failure; G47.33 Obstructive sleep apnea (adult) (pediatric); G89.29 Other chronic pain; K21.9 Gastro-esophageal reflux disease without esophagitis; M06.9 Rheumatoid arthritis, unspecified; M19.90 Unspecified osteoarthritis, unspecified site; N40.0 Benign prostatic hyperplasia without lower urinary tract symptoms; S93.401A Sprain of unspecified ligament of right ankle, initial encounter; Z82.49 Family history of ischemic heart disease and other diseases of the circulatory system; Z86.711 Personal history of pulmonary embolism; Z79.01 Long term (current) use of anticoagulants; Z72.0 Tobacco use; Z79.899 Other long term (current) drug therapy
CPT/HCPCS: 36415; 70491; 71020; 71260; 74020; 74176; 76770; 80053; 81003; 81050; 82103; 82104; 82164; 82550; 82553; 82785; 83036; 83880; 84156; 84165; 84439; 84443; 84484; 85025; 85610; 85652; 85730; 86001; 86003; 86140; 86606; 86609; 93005; 93306; 93976; 94640; 96361; 96374; 96375; 96376; 99285

== ENCOUNTER → 2016-10-04 | Outpatient (CLI) | payer OTHER ==
--- NOTE | 2016-10-04 19:15 | PN ---
DATE OF SERVICE: 10/04/2016 This patient is a 55-year-old gentleman who has been followed in the sleep center for treatment of extremely severe obstructive sleep apnea/hypopnea syndrome. I discussed with the patient results of his sleep study. He has again extremely bad sleep apnea with apnea-hypopnea index 93.7 and oxygen desaturation to 37.6%. Patient was recommended treatment with BiPAP at the pressure 22/18 cm of water with oxygen during sleep. Patient is using his equipment during sleep. He is trying to use it every night. Sometimes he wakes up in the middle of the night and feels that the pressure is too high for him; he makes pressure less and continues to sleep with the machine. I checked patient's BiPAP unit. I checked the reading from his machine. Reading showed pressure in the machine is 22/18 cm of water with RAMP started from 4 cm of water. I have reading from mid July of 2016 until August 23, 2016, which is 36 days. Number of days with usage for more than 4 hours is 21 out of 36, which is 58.3%. Reading from the machine showed average apnea-hypopnea index 3.7 and average central apnea index 1.4. Patient feels better during sleep and during the day. House Sleepiness Scale is 9. MEDICATIONS: 1. Aleve. (helps for arthritis) 2. Vitamins. PHYSICAL EXAMINATION: GENERAL: A 55-year-old gentleman without distress. VITAL SIGNS: BP 133/84, HR 100, RR 18. Weight 282.0, which is 6 pounds less than during titration. Temperature 98.4. Oxygen saturation at room air 93%. HEENT: PERRLA, EOMI. Evaluation of oropharynx showed extremely low position of soft palate. ABDOMEN: Obese. EXTREMITIES: Bilateral low leg edema. NECK: Supple. No JVD. Thyroid is not palpable. LUNGS: Clear to percussion and to auscultation. Good air exchange. No wheezing or rhonchi. HEART: S1, S2 regular. No murmurs, gallops or rubs. SALESPERSON JEWELRY: Awake, alert, and oriented x3. Cranial nerves 2 to 7 intact. There is no fasciculation or atrophy noted. No focal deficits observed. IMPRESSION: 1. Extremely severe obstructive sleep apnea/hypopnea syndrome; apnea-hypopnea index 93.7 with extremely severe oxygen desaturation to 37.6%, controlled with BiPAP at 22/18 cm of water with oxygen supplement. Apnea-hypopnea index on the BiPAP while patient is using BiPAP is in acceptable range. Patient demonstrated compliance with the machine slightly below accepted range. 2. Obesity. 3. Hypertension. 4. Swelling of the legs. 5. Polyarthritis. 6. History of pulmonary embolism. PLAN: 1. Patient should continue to use BiPAP machine every night for the whole night. We discussed that if he wakes up in the middle of the night, he will restart the machine again with RAMP and sleep with the machine again until finishing sleep in the morning. 2. Aggressive losing-weight program. 3. Sleep hygiene with regular time in bed for at least 8 hours. 4. No driving if feeling any sleepiness. Extreme precautions with driving. Patient is aware of civil and criminal liability related to driving. 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 5. I will see the patient for follow-up visit in one month. Thank you very much for allowing me to participate in the management of your patient. Sincerely, Cilf Edmond MD, PhD, FAASM. Diplomat of [place] [employer], Sleep Medicine Board by [place] [employer], [place] [employer]
== END | disposition home or self-care (01) ==
LOC: SLEEP 13:59
PROVIDERS: ATTEND Internal Medicine
DX: G47.33 Obstructive sleep apnea (adult) (pediatric) (principal); E66.9 Obesity, unspecified; I10 Essential (primary) hypertension; M13.0 Polyarthritis, unspecified; Z86.711 Personal history of pulmonary embolism; R60.0 Localized edema; Z79.899 Other long term (current) drug therapy

== ENCOUNTER 2016-10-11 16:52 | Emergency (ER) | payer OTHER ==
[2016-10-11 17:19] VITALS: TEMP 98.5
[2016-10-11] MEDS ORDERED: SODIUM CHLORIDE 0.9% 1,000 ML IV STA (17:45)
[2016-10-11] MEDS ORDERED: RX INFO: IV CONTRAST WAS GIVEN 1 EACH MISC MISCELLANE PRN ×2 (17:45→17:51)
[2016-10-11] MEDS ORDERED: HYDROmorphone 1 MG/ML 1 ML SYRINGE IVP STA (17:45)
[2016-10-11] MEDS ORDERED: ONDANSETRON 4 MG/2 ML VIAL IVP STA (17:45)
[2016-10-11 18:45] LABS: Anisocytosis Slight; Appearance,Urine Cloudy (Clear); Bacteria,Urine Rare /hpf; Basophils # (A) 0.1 k/uL (0-0.2); Basophils % (A) 1 %; Bilirubin,Urine Negative (Negative); CHCM 31.1; Eosinophils # (A) 0.1 k/uL (0-0.7); Eosinophils % (A) 1 %; Glucose,Urine (UA) Trace (Negative); HCT 45.6 % (39.0-53.0); HDW 3.12; HGB 13.9 gm/dL (13.0-17.5); Hypochromasia Moderate; Ketones,Urine Negative (Negative); Leukocyte Esterase,Urine Negative (Negative); Luc # (Auto) 0.29; Luc % (Auto) 3; Lymphocytes # (A) 2.5 k/uL (1.0-4.8); Lymphocytes % (A) 26 %; MCH 24.7 pg (25.0-35.0); MCHC 30.6 g/dL (31.0-37.0); MCV 80.7 fL (80.0-100.0); Mean Platelet Volume 8.2; Microcytosis Slight; Monocytes # (A) 0.8 k/uL (0-1.0); Monocytes % (A) 8 %; Mucus,Urine Many /hpf; Neutrophils % (A) 62 %; Nitrite,Urine Negative (Negative); PH, Urine 5.5 (5.0-8.0); Particle Count 15799; Protein,Urine 1+ (Negative); RBC 5.64 m/uL (4.30-5.90); RBC,Urine 2 /hpf (0-5); RDW 17.4 % (11.5-15.5); Specific Gravity,Urine 1.026 (1.001-1.035); Squamous Epithelial Cell,Urine 1 /hpf (0-4); UA Billing (MACRO vs. MICRO) MICRO; WBC 9.6 k/uL (3.8-10.6); WBC (Perox) 9.72
--- NOTE | 2016-10-11 18:54 | ED ---
Abdominal Pain HPI - General Chief Complaint: Abdominal Pain Stated Complaint: side pain Time Seen by Provider: 10/11/16 17:24 Source: patient Mode of arrival: ambulatory Limitations: no limitations - History of Present Illness Initial Comments: Complaining about abdominal pain abdominal pain started down about 5 days ago is in the right upper quadrant area is concerned about blood clot he had blood clots in the past he is on his overall toe and been taken his alto pretty religiously he is slightly short winded and it hurts with a deep breaths on the right side. He is concerned that he was exposed to asbestos about 2 weeks ago he was near a building which was being demolished him and that triggered a violent episode of coughing which lasted for about half an hour him he does have a history of hypertension COPD CHF pulmonary embolism, he still smokes side denies any alcohol except above - Related Data Home Medications Medication Instructions Recorded Confirmed Aclidinium [place] [Tudorza 1 puff INHALATION RT-BID 08/02/16 10/11/16 Pressair] Act 80units/Ml 80 units SQ TUFR 08/02/16 10/11/16 Bumetanide [BUMEX] 2 mg PO BID 08/02/16 10/11/16 Cholecalciferol [Vitamin D3] 2,000 unit PO DAILY 08/02/16 10/11/16 Losartan [Cozaar] 50 mg PO DAILY 08/02/16 10/11/16 Metoprolol Succinate (ER) [Toprol 50 mg PO DAILY 08/02/16 10/11/16 Xl] Mometasone/Formoterol [Dulera 200 2 puff INHALATION RT-BID 08/02/16 10/11/16 Mcg/5 Mcg Inhaler] Multivitamins, Thera [Multivitamin] 1 tab PO DAILY 08/02/16 10/11/16 Nitroglycerin Sl Tabs [Nitrostat] 0.4 mg SUBLINGUAL Q5M PRN 08/02/16 10/11/16 Omeprazole 20 mg PO BID 08/02/16 10/11/16 Potassium Chloride ER [K-Dur 20] 20 meq PO DAILY 08/02/16 10/11/16 Rivaroxaban [Xarelto] 15 mg PO HS 08/02/16 10/11/16 Tamsulosin HCl [Flomax] 0.4 mg PO DAILY 08/02/16 10/11/16 Tofacitinib Citrate [Xeljanz] 5 mg PO BID 08/02/16 10/11/16 Pregabalin [Lyrica] 75 mg PO HS 10/11/16 10/11/16 Previous Rx's Medication Instructions Recorded Metolazone [Zaroxolyn] 5 mg PO BID #60 tablet 08/05/16 predniSONE 20 mg PO DAILY #10 tab 08/05/16 Acetaminophen-Codeine 300-30mg 2 tab PO Q8H PRN #30 tablet 10/11/16 [Tylenol #3] Metoclopramide HCl [Reglan] 10 mg PO Q8HR #25 tablet 10/11/16 Pantoprazole [Protonix] 40 mg PO DAILY #30 tablet. 10/11/16 Allergies Allergy/AdvReac Type Severity Reaction Status Date / Time No Known Allergies Allergy Verified 10/11/16 19:04 Review of Systems ROS Statement: Those systems with pertinent positive or pertinent negative responses have been documented in the HPI. ROS Other: All systems not noted in ROS Statement are negative. Past Medical History Past Medical History: Heart Failure, COPD, Hyperlipidemia, Hypertension, Pulmonary Embolus (PE), Sleep Apnea/CPAP/BIPAP Additional Past Medical History / Comment(s): rheumatoid arthritis, blood clot in lungs History of Any Multi-Drug Resistant Organisms: None Reported Past Surgical History: Tonsillectomy Additional Past Surgical History / Comment(s): NECK SURGERY Past Anesthesia/Blood Transfusion Reactions: No Reported Reaction Past Psychological History: No Psychological Hx Reported Smoking Status: Current every day smoker Past Alcohol Use History: None Reported Past Drug Use History: None Reported - Past Family History Mother Family Medical History: Cancer, Congestive Heart Failure (CHF) Additional Family Medical History / Comment(s): breast cancer Father Family Medical History: Cancer, COPD, CVA/TIA Additional Family Medical History / Comment(s): lung cancer Sister(s) Family Medical History: Deep Vein Thrombosis (DVT) General Exam - General Exam Comments Initial Comments: General: The patient is awake and alert, in mild distress Skin: Skin is warm and dry and no rashes or lesions are noted. Eye: Pupils are equal, round and reactive to light, extra-ocular movements are intact; there is normal conjunctiva bilaterally. Ears, nose, mouth and throat: There are moist mucous membranes and no oral lesions. Neck: The neck is supple, there is no tenderness or JVD. Cardiovascular: There is a regular rate and rhythm. No murmur, rub or gallop is appreciated. Respiratory: To auscultation bilateral, exam consistent with moderate COPD Gastrointestinal: Tender in the right upper quadrant area, bowel sounds are positive no guarding no rebounds Back: There is no tenderness to palpation in the midline. There is no obvious deformity. Musculoskeletal: Normal ROM, no tenderness, There is no pedal edema. There is no calf tenderness or swelling. No cords were appreciated. Neurological: CN II-XII intact, Cranial nerves III through XII are intact. There are no obvious motor or sensory deficits. Coordination appears grossly intact. Speech is normal. Psychiatric: Cooperative, appropriate mood & affect, normal judgment. Limitations: no limitations Course Vital Signs 10/11/16 10/11/16 10/11/16 17:16 19:10 20:49 Temperature 98.5 F Pulse Rate 104 H 95 93 Respiratory 20 16 16 Rate Blood Pressure 143/88 146/71 120/58 O2 Sat by Pulse 95 96 93 L Oximetry Patient has a very extensive workup based on his complaints of abdominal pain and 30 chest pain those reports are reviewed and discussed with him that his came in later those reports were discussed with him that included CBC, CMP , troponin, EKG, urinalysis, CT angiogram to evaluate his pulmonary embolism CT abdomen to evaluate him for acute cholecystitis and KUB and chest x-ray all those things are negative. He does take some Aleve for his aches and pains I'm suspecting that he has gastroesophageal reflux or possibly duodenitis, he was advised to stop taking the Aleve G that with the Tylenol 1 g by mouth every 6 hours or I could prescribe him Tylenol with codeine to use them as-needed basis is advised to come back if symptoms get worse and I'll refer him to Dr. Nieves for EGD Medical Decision Making - Lab Data Result diagrams: 10/11/16 18:17 10/11/16 18:17 Lab Results 10/11/16 10/11/16 10/11/16 Range/Units 18:17 18:17 18:17 WBC 9.6 (3.8-10.6) k/uL RBC 5.64 (4.30-5.90) m/uL Hgb 13.9 (13.0-17.5) gm/dL Hct 45.6 (39.0-53.0) % MCV 80.7 (80.0-100.0) fL MCH 24.7 L (25.0-35.0) pg MCHC 30.6 L (31.0-37.0) g/dL RDW 17.4 H (11.5-15.5) % Plt Count 295 (150-450) k/uL Neutrophils % 62 % Lymphocytes % 26 % Monocytes % 8 % Eosinophils % 1 % Basophils % 1 % Neutrophils # 6.0 (1.3-7.7) k/uL Lymphocytes # 2.5 (1.0-4.8) k/uL Monocytes # 0.8 (0-1.0) k/uL Eosinophils # 0.1 (0-0.7) k/uL Basophils # 0.1 (0-0.2) k/uL Hypochromasia Moderate Anisocytosis Slight Microcytosis Slight Sodium 139 (137-145) mmol/L Potassium 3.5 (3.5-5.1) mmol/L Chloride 101 (98-107) mmol/L Carbon Dioxide 30 (22-30) mmol/L Anion Gap 8 mmol/L BUN 26 H (9-20) mg/dL Creatinine 0.95 (0.66-1.25) mg/dL Est GFR (MDRD) Af Amer >60 (>60 ml/min/1.73 sqM) Est GFR (MDRD) Non-Af >60 (>60 ml/min/1.73 sqM) Glucose 77 (74-99) mg/dL Plasma Lactic Acid Haroldo (0.7-2.0) mmol/L Calcium 9.4 (8.4-10.2) mg/dL Total Bilirubin 0.6 (0.2-1.3) mg/dL AST 25 (17-59) U/L ALT 41 (21-72) U/L Alkaline Phosphatase 66 (38-126) U/L Troponin I (0.000-0.034) ng/mL Total Protein 6.9 (6.3-8.2) g/dL Albumin 3.7 (3.5-5.0) g/dL Amylase 97 (30-110) U/L Lipase 181 (23-300) U/L Urine Color Dark Yellow Urine Appearance Cloudy (Clear) Urine pH 5.5 (5.0-8.0) Ur Specific [place] 1.026 (1.001-1.035) Urine Protein 1+ H (Negative) Urine Glucose (UA) Trace H (Negative) Urine Ketones Negative (Negative) Urine Blood Negative (Negative) Urine Nitrate Negative (Negative) Urine Bilirubin Negative (Negative) Urine Urobilinogen 2.0 (<2.0) mg/dL Ur Leukocyte Esterase Negative (Negative) Urine RBC 2 (0-5) /hpf Ur Squamous Epith Cells 1 (0-4) /hpf Urine Bacteria Rare H (None) /hpf Hyaline Casts 8 H (0-2) /lpf Urine Mucus Many H (None) /hpf 10/11/16 10/11/16 Range/Units 18:17 18:17 WBC (3.8-10.6) k/uL RBC (4.30-5.90) m/uL Hgb (13.0-17.5) gm/dL Hct (39.0-53.0) % MCV (80.0-100.0) fL MCH (25.0-35.0) pg MCHC (31.0-37.0) g/dL RDW (11.5-15.5) % Plt Count (150-450) k/uL Neutrophils % % Lymphocytes % % Monocytes % % Eosinophils % % Basophils % % Neutrophils # (1.3-7.7) k/uL Lymphocytes # (1.0-4.8) k/uL Monocytes # (0-1.0) k/uL Eosinophils # (0-0.7) k/uL Basophils # (0-0.2) k/uL Hypochromasia Anisocytosis Microcytosis Sodium (137-145) mmol/L Potassium (3.5-5.1) mmol/L Chloride (98-107) mmol/L Carbon Dioxide (22-30) mmol/L Anion Gap mmol/L BUN (9-20) mg/dL Creatinine (0.66-1.25) mg/dL Est GFR (MDRD) Af Amer (>60 ml/min/1.73 sqM) Est GFR (MDRD) Non-Af (>60 ml/min/1.73 sqM) Glucose (74-99) mg/dL Plasma Lactic Acid Haroldo 1.2 (0.7-2.0) mmol/L Calcium (8.4-10.2) mg/dL Total Bilirubin (0.2-1.3) mg/dL AST (17-59) U/L ALT (21-72) U/L Alkaline Phosphatase (38-126) U/L Troponin I <0.012 (0.000-0.034) ng/mL Total Protein (6.3-8.2) g/dL Albumin (3.5-5.0) g/dL Amylase (30-110) U/L Lipase (23-300) U/L Urine Color Urine Appearance (Clear) Urine pH (5.0-8.0) Ur Specific [place] (1.001-1.035) Urine Protein (Negative) Urine Glucose (UA) (Negative) Urine Ketones (Negative) Urine Blood (Negative) Urine Nitrate (Negative) Urine Bilirubin (Negative) Urine Urobilinogen (<2.0) mg/dL Ur Leukocyte Esterase (Negative) Urine RBC (0-5) /hpf Ur Squamous Epith Cells (0-4) /hpf Urine Bacteria (None) /hpf Hyaline Casts (0-2) /lpf Urine Mucus (None) /hpf Disposition Clinical Impression: Right upper quadrant pain, Pleuritic chest pain Disposition: HOME SELF-CARE Condition: Good Prescriptions: Acetaminophen-Codeine 300-30mg [Tylenol #3] 2 tab PO Q8H PRN #30 tablet PRN Reason: Pain Metoclopramide HCl [Reglan] 10 mg PO Q8HR #25 tablet Pantoprazole [Protonix] 40 mg PO DAILY #30 tablet.dr Referrals: Amador Culver DO [Primary Care Provider] - 1-2 days Jamilah Collado MD [STAFF PHYSICIAN] - 1-2 days
[2016-10-11 18:56] LABS: ALT 41 U/L (21-72); AST 25 U/L (17-59); Alkaline Phosphatase 66 U/L (38-126); Amylase 97 U/L (30-110); Anion Gap 8 mmol/L; Blood Urea Nitrogen 26 mg/dL (9-20); Calcium 9.4 mg/dL (8.4-10.2); Carbon Dioxide 30 mmol/L (22-30); Chloride 101 mmol/L (98-107); Glucose 77 mg/dL (74-99); Non-African American GFR(MDRD) >60 (>60 ml/min/1.73 sqM); Potassium 3.5 mmol/L (3.5-5.1); Sodium 139 mmol/L (137-145); Total Bilirubin 0.6 mg/dL (0.2-1.3); Total Protein 6.9 g/dL (6.3-8.2)
[2016-10-11 19:11] VITALS: RESP 16
--- NOTE | 2016-10-11 19:40 | XR ---
EXAMINATION TYPE: XR chest 2V DATE OF EXAM: 10/11/2016 7:30 PM COMPARISON: 08/02/2016 chest pain HISTORY: Chest pain TECHNIQUE: Frontal and lateral views of the chest are obtained. FINDINGS: There is no heart failure nor confluent pneumonic infiltrate. There are no hilar masses. C ostophrenic angles are clear. Bony thorax appears intact. IMPRESSION: No active cardiopulmonary disease. No change.
--- NOTE | 2016-10-11 19:41 | XR ---
EXAMINATION TYPE: XR KUB DATE OF EXAM: 10/11/2016 7:30 PM COMPARISON: 08/02/2016 HISTORY: Abdominal pain TECHNIQUE: 2 views FINDINGS: Bowel gas pattern is normal. There is no sign of intestinal obstruction or pneumoperitoneum . Fecal pattern is normal. There is no sign of a mass. There are no pathologic calcifications over th e kidneys. Bony structures appear intact. IMPRESSION: Nonacute abdomen. No change.
--- NOTE | 2016-10-11 20:22 | CT ---
EXAMINATION TYPE: CT abdomen pelvis w con DATE OF EXAM: 10/11/2016 8:05 PM COMPARISON: 08/03/2016 HISTORY: Pt states of RUQ pain x5 days. Hx of PE. CT DLP: 3830.4 mGycm Automated exposure control for dose reduction was used. TECHNIQUE: Helical acquisition of images was performed from the lung bases through the pelvis. CONTRAST: Performed without Oral Contrast and with IV Contrast, patient injected with 100 mL of Omnipaque 350. FINDINGS: There is mild subsegmental atelectasis at the lung bases. There is no pleural effusion. Heart size is normal. There is a 1.5 cm cyst in the anterior right lobe of the liver. Bile ducts are not dilated. Gallbladd er is contracted. There is no pancreatic mass. Spleen appears normal. There is no adrenal mass. Kidneys show satisfactory contrast opacification. There is no hydronephrosi s. There is no retroperitoneal adenopathy. There is no ascites. Appendix appears normal. I see no int estinal wall thickening. There are no dilated loops. Bladder distends smoothly. There is no sign of a pelvic mass. I see no bony destructive process. There is narrowing at L5-S1 disc space. IMPRESSION: SMALL HEPATIC CYST. NO DILATED DUCTS. MILD SUBSEGMENTAL ATELECTASIS AT THE LUNG BASES. NO ADVERSE GIOVANNA NGE COMPARED TO OLD EXAM. I DO NOT SEE A CAUSE FOR RIGHT UPPER QUADRANT PAIN. NORMAL APPENDIX.
--- NOTE | 2016-10-11 20:26 | CT ---
EXAMINATION TYPE: CT angio chest DATE OF EXAM: 10/11/2016 8:05 PM COMPARISON: NONE HISTORY: Pt states of RUQ pain x5 days. Hx of PE. CT DLP: 3830.4 mGycm Automated exposure control for dose reduction was used. CONTRAST: CTA scan of the thorax is performed with IV Contrast, patient injected with 100 mL of Omnipaque 350, pulmonary embolism protocol. . FINDINGS: There are 3-D post processed images. There is diffuse emphysema. There is some interstitial density at the posterior lung bases consistent with scarring and atelectasis. There is no pericardial effusion. There is no pleural effusion. I see no filling defects in the pulmonary arteries. There is no evidence of aortic aneurysm or dissection. There is no mediastinal adenopathy. There are a few mediastinal lymph nodes that measure less than 1 cm. There are no hilar masses. I see no bony destructive process. IMPRESSION: NO EVIDENCE OF PULMONARY EMBOLISM. MILD SCARRING AND ATELECTASIS AT THE POSTERIOR LUNG BASES. EMPHYSE MA. SUBPLEURAL RETICULAR INFILTRATE AT THE POSTERIOR LUNG BASES IS CONSISTENT WITH INTERSTITIAL FIBRO SIS.
[2016-10-11 20:50] VITALS: BP 120/58; PULSE 93
== END 2016-10-11 22:05 | disposition home or self-care (01) ==
LOC: EC 16:52
DX: R07.81 Pleurodynia (principal); R10.11 Right upper quadrant pain; I10 Essential (primary) hypertension; E78.5 Hyperlipidemia, unspecified; J44.9 Chronic obstructive pulmonary disease, unspecified; I50.9 Heart failure, unspecified; G47.33 Obstructive sleep apnea (adult) (pediatric); M06.9 Rheumatoid arthritis, unspecified; F17.200 Nicotine dependence, unspecified, uncomplicated; Z86.711 Personal history of pulmonary embolism; Z79.899 Other long term (current) drug therapy
CPT/HCPCS: 99284 ×2; 96374 ×2; 96375 ×2; 36415; 80053; 82150; 83605; 83690; 84484; 85025; 81001; 71020; 74000; 71275; 74177; Q9967; J2405; J1170

== ENCOUNTER → 2016-11-15 | Outpatient (CLI) | payer OTHER ==
--- NOTE | 2016-11-15 18:57 | PN ---
DATE OF SERVICE: 11/15/2016 This patient is a 55-year-old gentleman who has been followed in the sleep center for treatment of extremely severe obstructive sleep apnea-hypopnea syndrome with apnea-hypopnea index 93.7 with oxygen desaturation to 37.6%. Recently he has been started on treatment with BiPAP with a pressure 22/18 cm of water. Patient is reporting that he feels significant improvements with his sleep and feeling during the day. I reviewed the reading from his machine. It indicated that the patient used equipment more than 4 hours for 79% of the nights with average apnea-hypopnea index 2.7. Patient has quite a high leak, 51.2 L per minute, while using his BiPAP with a full-face mask. MEDICATIONS: Aleve, vitamins. PHYSICAL EXAMINATION: GENERAL: This is a pleasant 55-year-old gentleman without distress. VITAL SIGNS: BP 154/87, HR 100, RR 16. Height 5 feet 9 inches. Weight 295. BMI 43.5. Temperature 98.2. HEENT: PERRLA, EOMI. Evaluation of oropharynx showed tongue protrudes midline; extremely low position of soft palate. NECK: Supple. No JVD. Thyroid is not palpable. LUNGS: Clear to percussion and to auscultation. Good air exchange. No wheezing or rhonchi. HEART: S1, S2 regular. No murmurs, gallops or rubs. ABDOMEN: Obese. EXTREMITIES: No clubbing or cyanosis. LOCAL AREA NETWORK ADMINISTRATOR: Awake, alert, and oriented x3. Cranial nerves 2 to 7 intact. There is no fasciculation or atrophy noted. No focal deficits observed. IMPRESSION: 1. Extremely severe obstructive sleep apnea-hypopnea syndrome. Apnea-hypopnea index 93.7 with oxygen desaturation to 37.6%, under control with BiPAP at 28/18 cm of water. Patient demonstrated good compliance with treatment, benefitting from treatment. 2. Obesity. 3. Hypertension. 4. Polyarthritis. 5. History of pulmonary embolism. PLAN: 1. Continue treatment with BiPAP every night for the whole night. 2. Losing weight. 3. Sleep hygiene with regular time in bed for at least 8 hours. 4. No driving if feeling any sleepiness. 5. We will fit the patient with a different style of mask and try to decrease leak. Thank you very much for allowing me to participate in the management of your patient. Sincerely, Clif Edmond MD, PhD, FAASM. Diplomat of [place] [employer], Sleep Medicine Board by [employer], [place]
== END | disposition home or self-care (01) ==
LOC: SLEEP 15:28
PROVIDERS: ATTEND Internal Medicine
DX: G47.33 Obstructive sleep apnea (adult) (pediatric) (principal); E66.9 Obesity, unspecified; Z68.41 Body mass index [BMI] 40.0-44.9, adult; I10 Essential (primary) hypertension; M13.0 Polyarthritis, unspecified; Z86.711 Personal history of pulmonary embolism

== ENCOUNTER 2016-12-17 18:17 | Observation (INO) | payer OTHER ==
[2016-12-17] MEDS ORDERED: NITROGLYCERIN OINT 1 INCH/GM PACKET TOPICAL STA (18:46)
[2016-12-17] MEDS ORDERED: MORPHINE SULFATE 2 MG/ML SYRINGE IVP STA (18:46)
[2016-12-17] MEDS ORDERED: ASPIRIN 81 MG CHEW PO STA (18:46)
[2016-12-17] MEDS ORDERED: HYDROmorphone 1 MG/ML 1 ML SYRINGE IVP STA ×2 (18:50→21:39)
[2016-12-17] MEDS ORDERED: ONDANSETRON 4 MG/2 ML VIAL IVP STA (18:50)
--- NOTE | 2016-12-17 18:50 | ED ---
General Adult HPI - General Source: patient, RN notes reviewed Mode of arrival: wheelchair <Bandar Carl - Last Filed: 12/17/16 21:45> <Alvarez Chambers - Last Filed: 12/17/16 23:24> - General Chief complaint: Chest Pain Stated complaint: chest pain Time Seen by Provider: 12/17/16 18:20 - History of Present Illness Initial comments: This is a 56-year-old male who presents emergency department with past medical history significant for smoking high blood pressure and high cholesterol. Patient states he also had a cardiac catheterization at some point there was some blockage in one of his vessels but he Doesn't know how much. Patient states he started having chest pain in the lower part of his chest in the epigastric region. Patient states the pain radiates to his back and he states he does have a little epigastric pain as well. Patient states he become short of breath with this but not diaphoretic. Patient denies any nausea vomiting per patient denies any abdominal surgeries per patient denies any recent fever chills or cough. Patient denies any headache patient denies numbness weakness. Patient denies any lightheadedness dizziness and a syncopal episode. Patient denies any increase in leg swelling or calf tenderness. (Bandar Carl) - Related Data Home Medications Medication Instructions Recorded Confirmed Bumetanide [BUMEX] 2 mg PO QAM 08/02/16 12/17/16 Nitroglycerin Sl Tabs [Nitrostat] 0.4 mg SUBLINGUAL Q5M PRN 08/02/16 12/17/16 Potassium Chloride ER [K-Dur 20] 20 meq PO QAM 08/02/16 12/17/16 Rivaroxaban [Xarelto] 15 mg PO HS 08/02/16 12/17/16 Tofacitinib Citrate [Xeljanz] 5 mg PO BID 08/02/16 12/17/16 Pregabalin [Lyrica] 75 mg PO HS 10/11/16 12/17/16 Adreno Support Herbal 1 tab PO DAILY 12/17/16 12/17/16 Beclomethasone Dipropionate [Qvar 1 puff INHALATION RT-BID 12/17/16 12/17/16 80 mcg] Fluticasone Nasal [place] [Flonase 1 spray EA NOSTRIL DAILY PRN 12/17/16 12/17/16 Nasal [place]] Lung Support Herbal 1 tab PO DAILY 12/17/16 12/17/16 Metolazone [Zaroxolyn] 5 mg PO BID PRN 12/17/16 12/17/16 Montelukast [Singulair] 10 mg PO HS 12/17/16 12/17/16 Mupirocin 2% Nasal Oint [Bactroban 1 applic EA NOSTRIL TID 12/17/16 12/17/16 2% Nasal Oint] predniSONE 5 mg PO Q72H 12/17/16 12/17/16 prednisoLONE ACETATE 1% OPHTH 1 drops BOTH EYES BID 12/17/16 12/17/16 [Pred Forte 1%] Allergies Allergy/AdvReac Type Severity Reaction Status Date / Time No Known Allergies Allergy Verified 12/17/16 18:22 Review of Systems ROS Other: All systems not noted in ROS Statement are negative. <Bandar Carl - Last Filed: 12/17/16 21:45> ROS Other: All systems not noted in ROS Statement are negative. <Alvarez Chambers - Last Filed: 12/17/16 23:24> ROS Statement: Those systems with pertinent positive or pertinent negative responses have been documented in the HPI. Past Medical History Past Medical History: Heart Failure, COPD, Hyperlipidemia, Hypertension, Pulmonary Embolus (PE), Sleep Apnea/CPAP/BIPAP Additional Past Medical History / Comment(s): rheumatoid arthritis, blood clot in lungs History of Any Multi-Drug Resistant Organisms: None Reported Past Surgical History: Tonsillectomy Additional Past Surgical History / Comment(s): NECK SURGERY Past Anesthesia/Blood Transfusion Reactions: No Reported Reaction Past Psychological History: No Psychological Hx Reported Smoking Status: Current every day smoker Past Alcohol Use History: None Reported Past Drug Use History: None Reported - Past Family History Mother Family Medical History: Cancer, Congestive Heart Failure (CHF) Additional Family Medical History / Comment(s): breast cancer Father Family Medical History: Cancer, COPD, CVA/TIA Additional Family Medical History / Comment(s): lung cancer Sister(s) Family Medical History: Deep Vein Thrombosis (DVT) <Bandar Carl - Last Filed: 12/17/16 21:45> General Exam <Bandar Carl - Last Filed: 12/17/16 21:45> <Alvarez Chambers - Last Filed: 12/17/16 23:24> - General Exam Comments Initial Comments: GENERAL: Patient is well-developed and well-nourished. Patient is nontoxic and well- hydrated and is in mild distress. ENT: Neck is soft and supple. No significant lymphadenopathy is noted. Oropharynx is clear. Moist mucous membranes. Neck has full range of motion without eliciting any pain. EYES: The sclera were anicteric and conjunctiva were pink and moist. Extraocular movements were intact and pupils were equal round and reactive to light. Eyelids were unremarkable. PULMONARY: Unlabored respirations. Good breath sounds bilaterally. No audible rales rhonchi or wheezing was noted. CARDIOVASCULAR: There is a regular rate and rhythm without any murmurs gallops or rubs. ABDOMEN: Patient is tender in the right upper quadrant and epigastric region. No palpable organomegaly was noted. There is no palpable pulsatile mass. SKIN: Skin is clear with no lesions or rashes and otherwise unremarkable. NEUROLOGIC: Patient is alert and oriented x3. Cranial nerves II through XII are grossly intact. Motor and sensory are also intact. Normal speech, volume and content. Symmetrical smile. MUSCULOSKELETAL: Normal extremities with adequate strength and full range of motion. No lower extremity swelling or edema. No calf tenderness. LYMPHATICS: No significant lymphadenopathy is noted PSYCHIATRIC: Normal psychiatric evaluation. Normal interpersonal interactions appears functionally intact in deals appropriately with others. No signs of depression. No signs of anxiety. (Bandar Carl) Medical Decision Making - Lab Data Result diagrams: 12/17/16 18:40 12/17/16 18:40 <Bandar Carl - Last Filed: 12/17/16 21:45> - Lab Data Result diagrams: 12/17/16 18:40 12/17/16 18:40 <Alvarez Chambers - Last Filed: 12/17/16 23:24> - Medical Decision Making EKG shows sinus tachycardia at 116 bpm OK interval 152 QRS is 84 QT interval 332 QTC is 461. Patient's EKG shows no ST segment elevation however there appears to be some ST segment depression in the leads V4 through V6 which is very minimal but is seen on previous EKGs. Dr. Chambers will take over the care of this patient at 10pm (Bandar Carl) Patient was signed out to me by Dr. Carl. CT of the chest abdomen and pelvis was unremarkable for any aortic pathology. The patient has never had a stress test and has significant risk factors for ACS. Troponin is negative and EKG is unremarkable however would like to keep overnight for monitoring and cardiac evaluation in the morning. Patient is agreeable. Dr. Pathak accepts the admission. (Alvarez Chambers) - Lab Data Lab Results 12/17/16 12/17/16 12/17/16 Range/Units 18:40 18:40 18:40 WBC (3.8-10.6) k/uL RBC (4.30-5.90) m/uL Hgb (13.0-17.5) gm/dL Hct (39.0-53.0) % MCV (80.0-100.0) fL MCH (25.0-35.0) pg MCHC (31.0-37.0) g/dL RDW (11.5-15.5) % Plt Count (150-450) k/uL Neutrophils % % Lymphocytes % % Monocytes % % Eosinophils % % Basophils % % Neutrophils # (1.3-7.7) k/uL Lymphocytes # (1.0-4.8) k/uL Monocytes # (0-1.0) k/uL Eosinophils # (0-0.7) k/uL Basophils # (0-0.2) k/uL Hypochromasia Anisocytosis Microcytosis PT (9.0-12.0) sec INR (<1.1) APTT (22.0-30.0) sec D-Dimer (<0.60) mg/L FEU Sodium 137 (137-145) mmol/L Potassium 3.1 L (3.5-5.1) mmol/L Chloride 95 L (98-107) mmol/L Carbon Dioxide 31 H (22-30) mmol/L Anion Gap 11 mmol/L BUN 32 H (9-20) mg/dL Creatinine 1.00 (0.66-1.25) mg/dL Est GFR (MDRD) Af Amer >60 (>60 ml/min/1.73 sqM) Est GFR (MDRD) Non-Af >60 (>60 ml/min/1.73 sqM) Glucose 172 H (74-99) mg/dL Calcium 10.2 (8.4-10.2) mg/dL Magnesium 2.0 (1.6-2.3) mg/dL Total Bilirubin 0.6 (0.2-1.3) mg/dL AST 24 (17-59) U/L ALT 31 (21-72) U/L Alkaline Phosphatase 80 (38-126) U/L Total Creatine Kinase 58 (55-170) U/L CK-MB (CK-2) 1.1 (0.0-2.4) ng/mL CK-MB (CK-2) Rel Index 1.9 Troponin I <0.012 (0.000-0.034) ng/mL NT-Pro-B Natriuret Pep 223 pg/mL Total Protein 7.5 (6.3-8.2) g/dL Albumin 3.9 (3.5-5.0) g/dL Amylase 91 (30-110) U/L Lipase 147 (23-300) U/L 12/17/16 12/17/16 12/17/16 Range/Units 18:40 18:40 18:40 WBC 13.3 H (3.8-10.6) k/uL RBC 6.21 H (4.30-5.90) m/uL Hgb 15.4 (13.0-17.5) gm/dL Hct 47.9 (39.0-53.0) % MCV 77.2 L (80.0-100.0) fL MCH 24.7 L (25.0-35.0) pg MCHC 32.0 (31.0-37.0) g/dL RDW 16.9 H (11.5-15.5) % Plt Count 316 (150-450) k/uL Neutrophils % 76 % Lymphocytes % 16 % Monocytes % 6 % Eosinophils % 0 % Basophils % 1 % Neutrophils # 10.1 H (1.3-7.7) k/uL Lymphocytes # 2.1 (1.0-4.8) k/uL Monocytes # 0.8 (0-1.0) k/uL Eosinophils # 0.0 (0-0.7) k/uL Basophils # 0.1 (0-0.2) k/uL Hypochromasia Slight Anisocytosis Slight Microcytosis Slight PT 10.9 (9.0-12.0) sec INR 1.1 (<1.1) APTT 24.3 (22.0-30.0) sec D-Dimer 0.28 (<0.60) mg/L FEU Sodium (137-145) mmol/L Potassium (3.5-5.1) mmol/L Chloride (98-107) mmol/L Carbon Dioxide (22-30) mmol/L Anion Gap mmol/L BUN (9-20) mg/dL Creatinine (0.66-1.25) mg/dL Est GFR (MDRD) Af Amer (>60 ml/min/1.73 sqM) Est GFR (MDRD) Non-Af (>60 ml/min/1.73 sqM) Glucose (74-99) mg/dL Calcium (8.4-10.2) mg/dL Magnesium (1.6-2.3) mg/dL Total Bilirubin (0.2-1.3) mg/dL AST (17-59) U/L ALT (21-72) U/L Alkaline Phosphatase (38-126) U/L Total Creatine Kinase (55-170) U/L CK-MB (CK-2) (0.0-2.4) ng/mL CK-MB (CK-2) Rel Index Troponin I (0.000-0.034) ng/mL NT-Pro-B Natriuret Pep pg/mL Total Protein (6.3-8.2) g/dL Albumin (3.5-5.0) g/dL Amylase (30-110) U/L Lipase (23-300) U/L Disposition <Bandar Carl - Last Filed: 12/17/16 21:45> <Alvarez Chambers - Last Filed: 12/17/16 23:24> Clinical Impression: Unstable angina Disposition: ADMITTED IP TO THIS [facility] Condition: Stable
[2016-12-17 19:07] LABS: Anisocytosis Slight; Basophils # (A) 0.1 k/uL (0-0.2); Basophils % (A) 1 %; CH 25.1; CHCM 32.6; Eosinophils % (A) 0 %; HCT 47.9 % (39.0-53.0); HDW 2.98; HGB 15.4 gm/dL (13.0-17.5); Hypochromasia Slight; Luc # (Auto) 0.17; Luc % (Auto) 1; Lymphocytes # (A) 2.1 k/uL (1.0-4.8); Lymphocytes % (A) 16 %; MCH 24.7 pg (25.0-35.0); MCV 77.2 fL (80.0-100.0); Mean Platelet Volume 8.2; Microcytosis Slight; Monocytes # (A) 0.8 k/uL (0-1.0); Monocytes % (A) 6 %; Neutrophils # (A) 10.1 k/uL (1.3-7.7); Neutrophils % (A) 76 %; RBC 6.21 m/uL (4.30-5.90); RDW 16.9 % (11.5-15.5); WBC 13.3 k/uL (3.8-10.6); WBC (Perox) 12.73
[2016-12-17 19:10] LABS: ALT 31 U/L (21-72); AST 24 U/L (17-59); Alkaline Phosphatase 80 U/L (38-126); Amylase 91 U/L (30-110); Anion Gap 11 mmol/L; Blood Urea Nitrogen 32 mg/dL (9-20); Calcium 10.2 mg/dL (8.4-10.2); Carbon Dioxide 31 mmol/L (22-30); Chloride 95 mmol/L (98-107); Glucose 172 mg/dL (74-99); INR 1.1 (<1.1); Non-African American GFR(MDRD) >60 (>60 ml/min/1.73 sqM); Partial Thromboplastin Time 24.3 sec (22.0-30.0); Potassium 3.1 mmol/L (3.5-5.1); Prothrombin Time 10.9 sec (9.0-12.0); Sodium 137 mmol/L (137-145); Total Bilirubin 0.6 mg/dL (0.2-1.3); Total Protein 7.5 g/dL (6.3-8.2)
[2016-12-17 19:15] LABS: Creatine Kinase 58 U/L (55-170)
[2016-12-17 19:29] LABS: Creatine Kinase MB 1.1 ng/mL (0.0-2.4); Troponin I <0.012 ng/mL (0.000-0.034)
--- NOTE | 2016-12-17 19:48 | XR ---
EXAMINATION TYPE: XR chest 2V DATE OF EXAM: 12/17/2016 7:22 PM COMPARISON: 10/11/2016 HISTORY: Chest pain, shortness of breath, and hypertension with history of heart catheterization TECHNIQUE: Frontal and lateral views of the chest are obtained. FINDINGS: There is no focal air space opacity, pleural effusion, or pneumothorax seen. The cardiac silhouette size is within normal limits. The osseous structures are intact. Left basilar scarring i s unchanged. IMPRESSION: No acute cardiopulmonary process.
--- NOTE | 2016-12-17 21:26 | US ---
EXAMINATION TYPE: US gallbladder DATE OF EXAM: 12/17/2016 9:12 PM COMPARISON: CT in PACS 10/2016. CT abdomen pelvis dated 10/11/2016. CLINICAL HISTORY: Chest/shoulder/back Pain. Extremely limited/difficult exam due to patient body habi tus and overlying bowel gas EXAM MEASUREMENTS: Liver Length: 17.1 cm Gallbladder Wall: 0.2 cm CBD: 0.4 cm Right Kidney: 11.0 x 5.7 x 4.1 cm Pancreas: Obscured by bowel gas Liver: Limited visualization due to overlying bowel gas. Measuring upper limits of normal. Cystic ar ea visualized in right lobe measuring 1.2 x 1.3 x 1.2 cm. This was described on the CT abdomen pelvis as a hepatic cyst on 10/11/2016. Gallbladder: No stones seen Evidence for sonographic Tim's sign: No CBD: wnl measuring 4 mm as visualized, distal portion obscured by bowel gas Right Kidney: No hydronephrosis or masses seen IMPRESSION: 1. No sonographic evidence of cholecystitis. If there is further clinical concern HIDA scan could be performed. 2. Redemonstration of hepatic cyst previously described on the CT of 10/11/2016.
[2016-12-17] MEDS ORDERED: RX INFO: IV CONTRAST WAS GIVEN 1 EACH MISC MISCELLANE PRN (21:39)
--- NOTE | 2016-12-17 22:54 | CT ---
History: Reason: Pain Exam: CTA CHEST W/WO Contrast axial images through the chest, abdomen and pelvis before and after administration of 100 cc of Omnipaque 350 contrast intravenously with multiplanar reformatted images Technique more: CTDI is 16.80 and 23.10 mGy and DLP is 1148.40 and 1532. 50 mGy-cm. Technique more: This CT exam was performed using one or more of the following dose reduction techniques: automated exposure control, adjustment of the mA and/or kV according to patient size, and/or use of iterative reconstruction technique. Comparison: 10/11/2016 FINDINGS: Thoracic aorta within limits without aneurysm, dissection or evidence of intramural hematoma. No pericardial or pleural effusion. No evidence of large central or hilar pulmonary embolism. Visualized great vessels appear within limits. Pulmonary emphysema and left greater than right basilar atelectasis without focal consolidation. The central airways are patent. IMPRESSION: Thoracic aorta within limits without aneurysm, dissection or evidence of intramural hematoma. Pulmonary emphysema and left greater than right basilar atelectasis without focal consolidation. Exam: CTA ABDOMEN + PELVIS W/WO Contrast axial images through the chest, abdomen and pelvis before and after administration of 100 cc of Omnipaque 350 contrast intravenously with multiplanar reformatted images Technique more: CTDI is 16.80 and 23.10 mGy and DLP is 1148.40 and 1532. 50 mGy-cm. Technique more: This CT exam was performed using one or more of the following dose reduction techniques: automated exposure control, adjustment of the mA and/or kV according to patient size, and/or use of iterative reconstruction technique. Comparison: None available FINDINGS: Abdominal aorta within limits without aneurysm or dissection. The celiac, SMA, renal arteries and NIGHAT fill with contrast as expected. Retroaortic left renal vein, anatomic variant. Abdominal solid organs and gallbladder appear within limits on noncontrast and early phase arterial enhancement. No bowel dilation, free air or free fluid. Normal caliber appendix without secondary signs. The bladder and prostate appear within limits. Large abdominal girth noted. L5-S1 spondylosis/discogenic change with bilateral foraminal stenosis. IMPRESSION: Abdominal aorta within limits without aneurysm or dissection. Large abdominal girth noted. L5-S1 spondylosis/discogenic change with bilateral foraminal stenosis.
[2016-12-17] MEDS ORDERED: NITROGLYCERIN SL TABS 0.4 MG TAB SUBLINGUAL PRN (23:19)
[2016-12-17] MEDS ORDERED: METOLAZONE 5 MG TAB PO PRN (23:22)
[2016-12-17] MEDS ORDERED: predniSONE 5 MG TAB PO SCH (23:30)
[2016-12-17] MEDS: MORPHINE SULFATE 4 MG/ML SYRINGE IV PRN (23:53)
[2016-12-17] MEDS: HEPARIN SODIUM,PORCINE 5,000 UNIT/ML 1 ML VIAL IV ONE (23:55)
[2016-12-17] MEDS: HEPARIN SODIUM,PORCINE/D5W PMX 25,000 UNIT in DEXTROSE/WATER 1 500ML.BAG IV SCH (23:58)
[2016-12-18] MEDS: PREGABALIN 75 MG CAP PO SCH ×2 (00:48→20:46)
[2016-12-18] MEDS: MONTELUKAST 10 MG TAB PO SCH ×2 (00:48→20:46)
[2016-12-18 01:35] LABS: Creatine Kinase 47 U/L (55-170)
[2016-12-18 01:49] LABS: Troponin I <0.012 ng/mL (0.000-0.034)
[2016-12-18 06:45] LABS: Cholesterol 182 mg/dL (<200); HDL Cholesterol 56 mg/dL (40-60); Triglycerides 85 mg/dL (<150)
[2016-12-18 06:50] LABS: Creatine Kinase 42 U/L (55-170)
[2016-12-18 07:02] LABS: Creatine Kinase MB 0.8 ng/mL (0.0-2.4); Troponin I <0.012 ng/mL (0.000-0.034)
[2016-12-18] MEDS: MORPHINE SULFATE 4 MG/ML SYRINGE IV PRN ×2 (07:35→20:50)
[2016-12-18] MEDS: HEPARIN SODIUM,PORCINE/D5W PMX 25,000 UNIT in DEXTROSE/WATER 1 500ML.BAG IV SCH (07:40)
[2016-12-18] MEDS: HEPARIN SODIUM,PORCINE 5,000 UNIT/ML 1 ML VIAL IV ONE (07:40)
[2016-12-18] MEDS: BUMETANIDE 1 MG TAB PO SCH (08:53)
[2016-12-18] MEDS ORDERED: ASPIRIN 325 MG TAB PO SCH (09:00)
[2016-12-18] MEDS ORDERED: TOFACITINIB CITRATE 5 MG PO SCH (09:00)
[2016-12-18] MEDS: BECLOMETHASONE DIP 80 MCG/PUFF INHALER INHALATION SCH ×2 (09:04→20:46)
--- NOTE | 2016-12-18 14:09 | P.HPIM ---
History of Present Illness H&P Date: 12/18/16 Chief Complaint: Chest pain This is a 55-year-old male patient of Dr. Culver. He has a past history of rheumatoid arthritis followed by Dr. Egan currently on steroids which are being weaned and Xeljanz. He also has hypertension, COPD, chronic tobacco dependency, hyperlipidemia and prior history of pulmonary emboli, obstructive sleep apnea with CPAP. He follows with Dr. TOMMIE Shore from pulmonary medicine. 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 There was apparently 40% blockage in one of his arteries. He also gives history that he has had a weight gain of 100 pounds in the past 15 months and he did cope to both [place] and [facility] and apparently the reason could not be identified. He states he is taking a diuretic 3 times per week. He also gives history that he has degenerative disc disease in the lumbar spine and he is not able to walk any significant distance because of that but that he also developed shortness of breath. He last saw Dr. Culver one month ago. Patient states that he got up yesterday and he normally sleeps in a lazy boy because of his CPAP. He felt like there was somebody sitting on his chest that was in the center and radiated to both sides. He states it worsened throughout the day. He came into [facility] emergency center for evaluation. Troponins have been negative 3. Triglycerides 85, cholesterol 182, LDL 109, HDL 56. Amylase and lipase were normal. Patient did get relief from Nitropaste and the pain is currently gone. He has been started on heparin drip, morphine and nitroglycerin and placed in the observation unit, cardiology consult requested. Review of Systems All systems: negative Constitutional: Denies chills, Denies fever Eyes: denies blurred vision, denies pain Ears, nose, mouth and throat: Denies headache, Denies sore throat Cardiovascular: Reports chest pain, Denies shortness of breath Respiratory: Denies cough Gastrointestinal: Denies abdominal pain, Denies diarrhea, Denies nausea, Denies vomiting Musculoskeletal: Reports low back pain, Denies myalgias Integumentary: Denies pruritus, Denies rash Neurological: Denies numbness, Denies weakness Psychiatric: Denies anxiety, Denies depression Endocrine: Denies fatigue, Denies weight change Past Medical History Past Medical History: Coronary Artery Disease (CAD), Heart Failure, COPD, Hyperlipidemia, Hypertension, Pulmonary Embolus (PE), Rheumatoid Arthritis (RA) , Sleep Apnea/CPAP/BIPAP Additional Past Medical History / Comment(s): rheumatoid arthritis, 2 pulmonary embolisms right lung and 1 pulmonary embolism L lung, cataracts bilaterally and watery eyes bilaterally, pt states 100 pound unexplained wt gain about 18 months ago, obstructive sleep apnea with CPAP. History of Any Multi-Drug Resistant Organisms: None Reported Past Surgical History: Heart Catheterization, Tonsillectomy Additional Past Surgical History / Comment(s): 2012 cardiac cath with mild CAD, cervical fusion (ACDF), colonoscopy 1-1/2 years ago-normal. Past Anesthesia/Blood Transfusion Reactions: No Reported Reaction Past Psychological History: No Psychological Hx Reported Additional Psychological History / Comment(s): Pt resides with his spouse. He is independent. Smoking Status: Current every day smoker Past Alcohol Use History: None Reported Additional Past Alcohol Use History / Comment(s): Pt started smoking in 1975 and is a one half to three-quarter ppd smoker. He denies any medical marijuana , marijuana or street drug use. He denies any alcohol use. 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 He has had recent asbestos exposure. Past Drug Use History: None Reported - Past Family History Mother Family Medical History: Cancer, Congestive Heart Failure (CHF) Additional Family Medical History / Comment(s): breast cancer. Mother of CHF at the age of 84 yrs. Father Family Medical History: Cancer, COPD, CVA/TIA Additional Family Medical History / Comment(s): lung cancer. Father of copd at the age of 79yrs. Sister(s) Family Medical History: Deep Vein Thrombosis (DVT) Additional Family Medical History / Comment(s): Patient has one sister that at age 55 from a brain aneurysm. He has 3 other sisters with no major medical problems. Brother(s) Additional Family Medical History / Comment(s): Patient has 3 brothers and one has history of coronary artery disease status post CABG and lap band surgery. Son(s) Additional Family Medical History / Comment(s): Patient has one son with history of drug and alcohol addiction. Medications and Allergies Home Medications Medication Instructions Recorded Confirmed Type Bumetanide [BUMEX] 2 mg PO QAM 08/02/16 12/17/16 History Nitroglycerin Sl Tabs [Nitrostat] 0.4 mg SUBLINGUAL Q5M PRN 08/02/16 12/17/16 History Potassium Chloride ER [K-Dur 20] 20 meq PO QAM 08/02/16 12/17/16 History Rivaroxaban [Xarelto] 15 mg PO HS 08/02/16 12/17/16 History Tofacitinib Citrate [Xeljanz] 5 mg PO BID 08/02/16 12/17/16 History Pregabalin [Lyrica] 75 mg PO HS 10/11/16 12/17/16 History Adreno Support Herbal 1 tab PO DAILY 12/17/16 12/17/16 History Beclomethasone Dipropionate [Qvar 1 puff INHALATION RT-BID 12/17/16 12/17/16 History 80 mcg] Fluticasone Nasal Rhodes [Flonase 1 spray EA NOSTRIL DAILY PRN 12/17/16 12/17/16 History Nasal Rhodes] Lung Support Herbal 1 tab PO DAILY 12/17/16 12/17/16 History Metolazone [Zaroxolyn] 5 mg PO BID PRN 12/17/16 12/17/16 History Montelukast [Singulair] 10 mg PO HS 12/17/16 12/17/16 History Mupirocin 2% Nasal Oint [Bactroban 1 applic EA NOSTRIL TID 12/17/16 12/17/16 History 2% Nasal Oint] predniSONE 5 mg PO Q72H 12/17/16 12/17/16 History prednisoLONE ACETATE 1% OPHTH 1 drops BOTH EYES BID 12/17/16 12/17/16 History [Pred Forte 1%] Allergies Allergy/AdvReac Type Severity Reaction Status Date / Time No Known Allergies Allergy Verified 12/17/16 18:22 Physical Exam Vitals: Vital Signs Temp Pulse Pulse Resp BP BP Pulse Ox 12/18/16 12:00 99.2 F 116 H 18 121/87 91 L 12/18/16 11:36 99.5 F 108 H 18 118/75 94 L 12/18/16 07:32 98.0 F 107 H 18 135/80 95 12/18/16 00:02 98.3 F 98 18 127/67 95 12/17/16 22:00 80 18 103/68 99 12/17/16 20:47 98.7 F 125 H 18 133/81 95 12/17/16 18:20 99.3 F 118 H 18 165/89 94 L Intake and Output 12/17/16 12/18/16 12/18/16 22:59 06:59 14:59 Intake Total 394 Balance 394 Intake: Intake, IV Titration 154 Amount Heparin Sodium,Porcine/ 154 D5w Pmx 25,000 unit In Dextrose/Water 1 500ml. bag @ 7.9 UNITS/KG/HR 20. 21 mls/hr IV .Q24H [facility] Rx #:[id number] Oral 240 Other: Voiding Method Toilet Weight 127.913 kg 128.8 kg Patient Weight 12/19/16 06:59 Weight 128.8 kg Gen: This is a morbidly obese 56-year-old male. He is sitting on the edge of the bed and appears in no acute distress. HEENT: Head is atraumatic, normocephalic. Pupils equal, round. Sclerae is anicteric. NECK: Supple. No JVD. No lymphadenopathy. No thyromegaly. LUNGS: Clear to auscultation. No wheezes or rhonchi. No intercostal retractions. HEART: Regular rate and rhythm. No murmur. ABDOMEN: Soft. Bowel sounds are present. No masses. No tenderness. EXTREMITIES: Trace pedal edema. No calf tenderness. Dorsalis pedis palpable bilaterally. NEUROLOGICAL: Patient is awake, alert and oriented x3. Cranial nerves 2 through 12 are grossly intact. Results CBC & Chem 7: 12/17/16 18:40 12/17/16 18:40 Labs: Abnormal Lab Results - Last 24 Hours (Table) 12/17/16 12/17/16 12/18/16 Range/Units 18:40 18:40 00:59 WBC 13.3 H (3.8-10.6) k/uL RBC 6.21 H (4.30-5.90) m/uL MCV 77.2 L (80.0-100.0) fL MCH 24.7 L (25.0-35.0) pg RDW 16.9 H (11.5-15.5) % Neutrophils # 10.1 H (1.3-7.7) k/uL Potassium 3.1 L (3.5-5.1) mmol/L Chloride 95 L (98-107) mmol/L Carbon Dioxide 31 H (22-30) mmol/L BUN 32 H (9-20) mg/dL Glucose 172 H (74-99) mg/dL Total Creatine Kinase 47 L (55-170) U/L LDL Cholesterol, Calc (0-99) mg/dL 12/18/16 12/18/16 Range/Units 05:46 05:46 WBC (3.8-10.6) k/uL RBC (4.30-5.90) m/uL MCV (80.0-100.0) fL MCH (25.0-35.0) pg RDW (11.5-15.5) % Neutrophils # (1.3-7.7) k/uL Potassium (3.5-5.1) mmol/L Chloride (98-107) mmol/L Carbon Dioxide (22-30) mmol/L BUN (9-20) mg/dL Glucose (74-99) mg/dL Total Creatine Kinase 42 L (55-170) U/L LDL Cholesterol, Calc 109 H (0-99) mg/dL Thrombosis Risk Factor Assmnt - DVT/VTE Prophylaxis DVT/VTE Prophylaxis: Pharmacologic Prophylaxis ordered - Choose All That Apply Any of the Below Risk Factors Present?: Yes Each Factor Represents 1 point: Abnormal pulmonary function (COPD), Age 41-60 years, Obesity (BMI >25) Other Risk Factors: Yes Each Risk Factor Represents 3 Points: Family history of DVT/PE Other congenital or acquired thrombophilia - If yes, enter type in comment: No Thrombosis Risk Factor Assessment Total Risk Factor Score: 6 Thrombosis Risk Factor Assessment Level: High Risk Assessment and Plan Plan: 1. Midsternal chest pain. Troponins have been negative on 3 draws. Patient has been started on nitroglycerin, Nitropaste, heparin drip. Cardiology consult in place. 2. Rheumatoid arthritis. Patient has been weaned off steroids by Dr. Egan currently on prednisone 5 mg every 72 hours. He is also on Xeljanz. 3. Degenerative disc disease. Continue Lyrica. 4. History of pulmonary embolism. Continue Xarelto. 5. COPD. Continue Qvar. 6. Lower extremity edema. Continue Bumex and potassium. 7. Obstructive sleep apnea. Continue CPAP on home settings. 8. DVT prophylaxis. On heparin drip 9. Gastrointestinal prophylaxis. Pepcid daily Patient placed on the observation unit. Discharge plan: Return home Impression and plan of care have been directed as dictated by the signing physician. Oneyda Hill nurse practitioner acting as scribe for signing physician.
--- NOTE | 2016-12-18 14:40 | P.PN ---
Progress Note - Text 56-year-old male patient presenting with 14 OF severe chest discomfort going up into his neck, in the midline relieved with nitroglycerin with 3 normal cardiac enzymes no evidence for aortic dissection known pulmonary embolism on xarelto 15 mg today who states that about a year and a half pack he had a coronary angiogram at [facility] which showed a 40% blockage. According to his he was treated with Lipitor but he is not taking it now. He continues to smoke. He complains of shortness of breath on exertion Suggest Stop heparin Lipid panel Atorvastatin 20 mg by mouth daily to begin with A baby aspirin daily Records from [facility] 2-D echo and Doppler study Consider stress testing,
[2016-12-18] MEDS: ATORVASTATIN 20 MG TAB PO SCH (15:49)
--- NOTE | 2016-12-18 20:03 | CONS ---
DATE OF CONSULTATION: Waylon Locke is a 56-year-old male patient who presented with severe discomfort in the chest. This was in the midline and going up into the throat and the neck. It was relieved with nitroglycerin. The pain started yesterday and lasted continuously for almost 12 to 14 hours. He was in quite a lot of pain. When he came in, a CT scan was done to rule out an aortic dissection. There was no evidence for aortic dissection. When I saw him, he was sleeping comfortably in bed. I had to wake him up. He had no further pain. His cardiac enzymes x3 were normal after experiencing 14 hours of pain that was relieved with nitroglycerin. EKG did not show any significant abnormalities. The 12-lead ECG showed sinus tachycardia at 116 beats per minute, non-specific ST-T changes, incomplete right bundle branch block pattern, left axis deviation. PAST HISTORY: 1. Rheumatoid arthritis, being treated by Dr. Egan; has been on steroids. 2. History of hypertension. 3. COPD. 4. Chronic tobacco dependency. He states that he likes smoking cigarettes. 5. Dyslipidemia. 6. History of pulmonary embolism about 9 months back, and he is on Xarelto 15 mg p.o. daily. 7. Obstructive sleep apnea; uses a CPAP mask, follows with Dr. Anshul Shore. 8. He has had a coronary angiogram for chest discomfort that was relieved with nitroglycerin almost one and a half years back at [facility], and at that time non-obstructive coronary artery disease was detected, according to his . Lipitor was prescribed. He does not take Lipitor at this time. REVIEW OF SYSTEMS: No fever, chills or rigors. No cough or any expectoration. No nausea, vomiting or diarrhea. No hematuria or dysuria. No strokes or seizures. No skin lesions or musculoskeletal complaints. Medication list was reviewed and is documented in the chart. It includes: 1. Bumex. 2. Nitroglycerin. 3. Potassium chloride. 4. Xarelto. 5. Adrenal support herbal. 6. Lyrica. 7. Metolazone. 8. Montelukast. 9. Prednisone. ALLERGIES: NO KNOWN DRUG ALLERGIES. On examination, his blood pressure is 101/55 and 121/87 mmHg. Pulse rate was in the 90s. He is afebrile, 98.6 degrees Fahrenheit. Respirations are normal. Head and neck examination is normal. Heart sounds S1, S2 are normal. ABDOMEN: Central obesity is noted. Abdomen is soft, nontender. EXTREMITIES: Warm. No edema. LABS: Reviewed. White count is 13,300. Hemoglobin is 15.4. Sodium is 137. Potassium is 3.1, chloride 95, bicarb 31. BUN 32, creatinine 1.0. Troponins x3 are normal. BNP is 223. LDL is 109, total cholesterol 182, HDL 56. Amylase and lipase are normal. IMPRESSION: 1. Atypical chest discomfort lasting for 14 hours with an ECG that does not show any definite or specific ST-segment abnormalities, and 3 cardiac enzymes that are normal. 2. Hypertension. 3. Central obesity. 4. Current smoker; one pack a day. 5. Known non-obstructive coronary artery disease. 6. Obstructive sleep apnea. 7. Rheumatoid arthritis. 8. Likely gastroesophageal reflux disease. SUGGEST: Stop heparin. Lipid panel. Start atorvastatin 20 mg p.o. daily. Baby aspirin. Records from cardiac catheterization in [facility], 2-D echo and Doppler study. Consider stress testing in the future.
[2016-12-18] MEDS: NICOTINE 14MG/24HR PATCH TRANSDERM SCH (20:46)
[2016-12-18] MEDS ORDERED: RIVAROXABAN 15 MG TAB PO SCH (21:00)
--- NOTE | 2016-12-19 07:54 | ECHOF ---
Referral Reason: MEASUREMENTS -------- HEIGHT: 152.4 cm WEIGHT: 128.4 kg BP: 140/40 IVSd: 1.3 cm (0.6 - 1.1) LVIDd: 4.4 cm (3.9 - 5.3) LVPWd: 1.0 cm (0.6 - 1.1) IVSs: 1.6 cm LVIDs: 3.3 cm LVPWs: 1.2 cm Ao Diam: 4.3 cm (2.0 - 3.7) AV Cusp: 1.9 cm (1.5 - 2.6) LA Diam: 3.4 cm (2.7 - 3.8) MV EXCURSION: 16.790 mm (> 18.000) MV EF SLOPE: 87 mm/s (70 - 150) EPSS: 0.8 cm MV E Rey: 0.58 m/s MV DecT: 208 ms MV A Rey: 0.75 m/s MV E/A Ratio: 0.77 RAP: 5.00 mmHg RVSP: 11.59 mmHg FINDINGS -------- Sinus rhythm. Morbid Obesity There is mild concentric left ventricular hypertrophy. Overall left ventricular systolic function is low-normal with, an EF between 50 - 55 %. The right ventricle is normal in size. The left atrial size is normal. The right atrial size is normal. There is mild aortic valve sclerosis. There is no evidence of aortic regurgitation. Mild mitral annular calcification present. Mild mitral regurgitation is present. Mild tricuspid regurgitation present. There is no evidence of pulmonary hypertension. The right ventricular systolic pressure, as measured by Doppler, is 11.59mmHg. The aortic root size is normal. Echo free space may represent effusion or a pericardial fat pad. CONCLUSIONS -------- 1. Morbid Obesity 2. Echo free space may represent effusion or a pericardial fat pad. 3. There is mild concentric left ventricular hypertrophy. 4. Overall left ventricular systolic function is low-normal with, an EF between 50 - 55 %. 5. There is mild aortic valve sclerosis. 6. Mild mitral annular calcification present. 7. Mild mitral regurgitation is present. 8. Mild tricuspid regurgitation present. 9. There is no evidence of pulmonary hypertension. 10. The right ventricular systolic pressure, as measured by Doppler, is 11.59mmHg. HI RANGER OPERATOR: Nikki Nguyen RDCS
[2016-12-19] MEDS ORDERED: REGADENOSON 0.4 MG/5 ML SYRINGE IV ONE (10:13)
[2016-12-19] MEDS ORDERED: AMINOPHYLLINE 500 MG/20 ML VIAL IV PRN (10:13)
[2016-12-19] MEDS ORDERED: DOBUTamine DRIP for NUC MED 500 MG in DEXTROSE/WATER 1 250ML.BAG IV ONE (11:00)
[2016-12-19] MEDS: BECLOMETHASONE DIP 80 MCG/PUFF INHALER INHALATION SCH ×2 (12:33→21:36)
[2016-12-19] MEDS: ATORVASTATIN 20 MG TAB PO SCH (12:58)
[2016-12-19] MEDS: BUMETANIDE 1 MG TAB PO SCH (12:58)
[2016-12-19] MEDS: ASPIRIN 81 MG CHEW PO SCH (12:58)
[2016-12-19] MEDS: FAMOTIDINE 20 MG TAB PO SCH (12:58)
--- NOTE | 2016-12-19 13:32 | ECHOS ---
DATE OF SERVICE: 12/19/2016 AGE: 56Y SEX: M HT: 70" WT: 283 lbs. Protocol Lizandro: Others: Stage: Dur. of Exercise: 6 minutes *Heart Rate Blood Pressure *Rest: 103 Rest: 122/55 * *Max. Achieved: 141 Maximum BP: 168/47 85% PMHR: 139 100% PMHR: 164 *METS: INDICATIONS: Chest pain. MEDICATIONS: See list. Mr. Locke is a 56-year-old gentleman who was admitted to the hospital with chest pain and shortness of breath. Baseline EKG showed sinus rhythm with normal OR interval and QRS duration. Blood pressure at rest is 122/55 with pulse rate of 103. A standard dose of dobutamine was initiated and titrated to maximum of 20 mcg. Patient also exercise with his hands and legs. Patient achieved a maximum heart rate of 141 with a blood pressure of 168/47. EKGs taken during and after the exercise did not reveal any changes to suggest ischemia. Baseline echo images show normal wall motion and thickening. Exercise echo images taken with low dose and high-dose dobutamine showed progressive augmentation of the wall motion and thickening Patient complained of shortness of breath, but no complaints of chest pain. The symptoms were resolved with rest and oxygen. FINAL IMPRESSION: 1. Negative dobutamine stress test. 2. Negative dobutamine contrast stress echo.
--- NOTE | 2016-12-19 16:50 | P.PN ---
Subjective This is a 55-year-old male patient of Dr. Culver. He has a past history of rheumatoid arthritis followed by Dr. Egan currently on steroids which are being weaned and Xeljanz. He also has hypertension, COPD, chronic tobacco dependency, hyperlipidemia and prior history of pulmonary emboli, obstructive sleep apnea with CPAP. He follows with Dr. TOMMIE Shore from pulmonary medicine. 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 There was apparently 40% blockage in one of his arteries. He also gives history that he has had a weight gain of 100 pounds in the past 15 months and he did cope to both [place] and [facility] and apparently the reason could not be identified. He states he is taking a diuretic 3 times per week. He also gives history that he has degenerative disc disease in the lumbar spine and he is not able to walk any significant distance because of that but that he also developed shortness of breath. He last saw Dr. Culver one month ago. Patient states that he got up yesterday and he normally sleeps in a lazy boy because of his CPAP. He felt like there was somebody sitting on his chest that was in the center and radiated to both sides. He states it worsened throughout the day. He came into [facility] emergency center for evaluation. Troponins have been negative 3. Triglycerides 85, cholesterol 182, LDL 109, HDL 56. Amylase and lipase were normal. Patient did get relief from Nitropaste and the pain is currently gone. He has been started on heparin drip, morphine and nitroglycerin and placed in the observation unit, cardiology consult requested. 12/19: Patient underwent stress echocardiogram which was negative. Request a heart catheterization with Dr. Miles which will be done tomorrow. Echocardiogram reveals EF 50-55% with mild concentric left ventricular hypertrophy. Mild aortic valve sclerosis, mild mitral regurgitation, mild tricuspid regurgitation. No pulmonary hypertension. CTA of the chest showed thoracic aorta within limits without aneurysm, dissection or evidence of intramural hematoma. Pulmonary emphysema and left greater than right basilar atelectasis without focal consolidation. L5-S1 spondylosis and discogenic change with bilateral foraminal stenosis. Ultrasound of the gallbladder shows no evidence of cholecystitis. Objective - Vital Signs Vital signs: Vital Signs Temp 98.9 F 12/19/16 16:00 Pulse 101 H 12/19/16 16:00 Resp 16 12/19/16 16:00 BP 122/83 12/19/16 16:00 Pulse Ox 91 L 12/19/16 16:00 Intake & Output 12/18/16 12/19/16 12/19/16 18:59 06:59 18:59 Intake Total 394 Balance 394 Weight 128.8 kg Intake: Intake, IV Titration 154 Amount Heparin Sodium,Porcine/ 154 D5w Pmx 25,000 unit In Dextrose/Water 1 500ml. bag @ 7.9 UNITS/KG/HR 20. 21 mls/hr IV .Q24H [facility] Rx #:[id number] Oral 240 Other: Voiding Method Toilet Toilet Toilet # Voids 1 - Exam Gen: This is a morbidly obese 56-year-old male. He is sitting on the edge of the bed and appears in no acute distress. HEENT: Head is atraumatic, normocephalic. Pupils equal, round. Sclerae is anicteric. NECK: Supple. No JVD. No lymphadenopathy. No thyromegaly. LUNGS: Clear to auscultation. No wheezes or rhonchi. No intercostal retractions. HEART: Regular rate and rhythm. No murmur. ABDOMEN: Soft. Bowel sounds are present. No masses. No tenderness. EXTREMITIES: Trace pedal edema. No calf tenderness. Dorsalis pedis palpable bilaterally. NEUROLOGICAL: Patient is awake, alert and oriented x3. Cranial nerves 2 through 12 are grossly intact. - Labs CBC & Chem 7: 12/17/16 18:40 12/17/16 18:40 Assessment and Plan Plan: 1. Midsternal chest pain. Troponins have been negative on 3 draws. Patient has been started on nitroglycerin, Nitropaste, heparin drip. Cardiology consult in place. Stress echocardiogram was negative. Heart catheterization in the morning. 2. Rheumatoid arthritis. Patient has been weaned off steroids by Dr. Egan currently on prednisone 5 mg every 72 hours. He is also on Xeljanz. 3. Degenerative disc disease. Continue Lyrica. 4. History of pulmonary embolism. Continue Xarelto. 5. COPD. Continue Qvar. 6. Lower extremity edema. Continue Bumex and potassium. 7. Obstructive sleep apnea. Continue CPAP on home settings. 8. DVT prophylaxis. On heparin drip 9. Gastrointestinal prophylaxis. Pepcid daily Patient placed on the observation unit. Discharge plan: Return home Impression and plan of care have been directed as dictated by the signing physician. Oneyda Hill nurse practitioner acting as scribe for signing physician.
[2016-12-19] MEDS ORDERED: DOCUSATE 100 MG CAP PO PRN (20:20)
[2016-12-19] MEDS: NICOTINE 14MG/24HR PATCH TRANSDERM SCH (20:49)
[2016-12-19] MEDS: PREGABALIN 75 MG CAP PO SCH (20:49)
[2016-12-19] MEDS: MONTELUKAST 10 MG TAB PO SCH (20:49)
[2016-12-20] MEDS ORDERED: METOLAZONE 5 MG TAB PO SCH (06:00)
[2016-12-20] MEDS ORDERED: BUMETANIDE 1 MG TAB PO SCH (06:00)
[2016-12-20] MEDS: BECLOMETHASONE DIP 80 MCG/PUFF INHALER INHALATION SCH (08:02)
--- NOTE | 2016-12-20 08:13 | P.PN ---
Progress Note - Text Discussed patient's stress test with Dr. Pathak did advise medical treatment, no current indication for coronary angiography In summary 1. His presenting symptoms were severe discomfort in the chest in the midline starting from the epigastrium to up to the throat lasting for greater than 12 hours constantly relieved with nitroglycerin with normal cardiac enzymes and a computed tomography scan which did not show any aortic dissection. Pain is not consistent with unstable angina. It lasted for 12-14 hours severe with completely normal enzymes and no ECG changes 2. Apparently patient had a coronary angiogram [facility] lasted subsequently he had a right heart cath at [facility]. Previous to that he had a coronary angiogram here which showed a 40% stenosis, one vessel disease. He continues to smoke and states that he likes smoking and will not stop smoking 3. He was prescribed atorvastatin the past according to his and is not taking it 4. He underwent a dobutamine stress echo yesterday. The stress test was read as normal. There was no evidence for ischemia. I personally reviewed the stress echo and the ECG did it is no ECG evidence for ischemia. Definity contrast was used. There was no echocardiographic evidence for ischemia. Excellent augmentation of contractility with myocardial thickening noted during dobutamine infusion as well as during recovery Suggest Stop smoking. This will reduce risk of heart attacks Atorvastatin to lower the LDL by at least 50% since he has known nonobstructive coronary artery disease. This will also reduce his risk of heart attacks in the future Weight reduction Baby aspirin Management of hypertension Follow-up with primary care physician
[2016-12-20] MEDS: NICOTINE 14MG/24HR PATCH TRANSDERM SCH (08:53)
[2016-12-20] MEDS: ATORVASTATIN 20 MG TAB PO SCH (08:59)
[2016-12-20] MEDS: FAMOTIDINE 20 MG TAB PO SCH (08:59)
[2016-12-20] MEDS: ASPIRIN 81 MG CHEW PO SCH (09:00)
[2016-12-20] MEDS ORDERED: MAGNESIUM HYDROXIDE 2,400 MG/10 ML CUP PO PRN (11:13)
[2016-12-20] MEDS ORDERED: POLYETHYLENE GLYCOL 3350 17 GM POWD.PACK PO SCH (11:15)
[2016-12-20 12:06] VITALS: BP 158/87; PULSE 105; RESP 18; TEMP 99.5
[2016-12-20 12:08] VITALS: BMI 40.7
--- NOTE | 2017-01-11 13:38 | P.DS ---
Providers Date of admission: 12/17/16 23:24 Expected date of discharge: 12/20/16 Attending physician: Pollo Pathak Consults: 12/17/16 23:19 Consult Physician Urgent Consulting Provider: Dara Shore Consult Reason/Comments: chest pain Do you want consulting provider notified?: Yes, Notify in am Primary care physician: Amador Austen Riggs Center Course: This is a 56-year-old male patient of Dr. Culver. He has a past history of rheumatoid arthritis followed by Dr. Egan currently on steroids which are being weaned and Xeljanz. He also has hypertension, COPD, chronic tobacco dependency, hyperlipidemia and prior history of pulmonary emboli, obstructive sleep apnea with CPAP. He follows with Dr. TOMMIE Shore from pulmonary medicine. He does not have a agency service representative but approximate one and half years ago he had a heart catheterization done one at [facility] and 1 at [place]. There was apparently 40% blockage in one of his arteries. He also gives history that he has had a weight gain of 100 pounds in the past 15 months and he did cope to both [place] and [facility] and apparently the reason could not be identified. He states he is taking a diuretic 3 times per week. He also gives history that he has degenerative disc disease in the lumbar spine and he is not able to walk any significant distance because of that but that he also developed shortness of breath. He last saw Dr. Culver one month ago. Patient states that he got up yesterday and he normally sleeps in a lazy boy because of his CPAP. He felt like there was somebody sitting on his chest that was in the center and radiated to both sides. He states it worsened throughout the day. He came into [facility] emergency center for evaluation. Troponins have been negative 3. Triglycerides 85, cholesterol 182, LDL 109, HDL 56. Amylase and lipase were normal. Patient did get relief from Nitropaste and the pain is currently gone. He has been started on heparin drip, morphine and nitroglycerin and placed in the observation unit, cardiology consult requested. 12/19: Patient underwent stress echocardiogram which was negative. Request a heart catheterization with Dr. Miles which will be done tomorrow. Echocardiogram reveals EF 50-55% with mild concentric left ventricular hypertrophy. Mild aortic valve sclerosis, mild mitral regurgitation, mild tricuspid regurgitation. No pulmonary hypertension. CTA of the chest showed thoracic aorta within limits without aneurysm, dissection or evidence of intramural hematoma. Pulmonary emphysema and left greater than right basilar atelectasis without focal consolidation. L5-S1 spondylosis and discogenic change with bilateral foraminal stenosis. Ultrasound of the gallbladder shows no evidence of cholecystitis. 12/20: Heart catheterization was not done as he recently had a right and left sided heart catheterization done. Cardiology has recommended smoking cessation, atorvastatin, weight reduction and baby aspirin, managed hypertension. Patient will be discharged home today in stable condition. Discharge diagnoses: 1. Midsternal chest pain. 2. Rheumatoid arthritis. 3. Degenerative disc disease. 4. History of pulmonary embolism. 5. COPD. 6. Lower extremity edema. 7. Obstructive sleep apnea. Patient placed on the observation unit. Discharge plan: Return home Impression and plan of care have been directed as dictated by the signing physician. Oneyda Hill nurse practitioner acting as scribe for signing physician. Patient Condition at Discharge: Stable Plan - Discharge Summary New Discharge Prescriptions: New Aspirin 81 mg PO DAILY Docusate [Colace] 100 mg PO BID PRN cap PRN Reason: Constipation Continue Rivaroxaban [Xarelto] 15 mg PO HS Potassium Chloride ER [K-Dur 20] 20 meq PO QAM Tofacitinib Citrate [Xeljanz] 5 mg PO BID Bumetanide [BUMEX] 2 mg PO QAM Pregabalin [Lyrica] 75 mg PO HS Metolazone [Zaroxolyn] 5 mg PO BID PRN PRN Reason: Edema prednisoLONE ACETATE 1% OPHTH [Pred Forte 1%] 1 drops BOTH EYES BID Fluticasone Nasal [place]k [Flonase Nasal Elk] 1 spray EA NOSTRIL DAILY PRN PRN Reason: Allergy Symptoms Beclomethasone Dipropionate [Qvar 80 mcg] 1 puff INHALATION RT-BID Montelukast [Singulair] 10 mg PO HS predniSONE 5 mg PO Q72H Mupirocin 2% Nasal Oint [Bactroban 2% Nasal Oint] 1 applic EA NOSTRIL TID Lung Support Herbal 1 tab PO DAILY Adreno Support Herbal 1 tab PO DAILY Nitroglycerin Sl Tabs [Nitrostat] 0.4 mg SUBLINGUAL Q5M PRN #50 PRN Reason: Chest Pain Discharge Medication List Bumetanide [BUMEX] 2 mg PO QAM 08/02/16 [History] Potassium Chloride ER [K-Dur 20] 20 meq PO QAM 08/02/16 [History] Rivaroxaban [Xarelto] 15 mg PO HS 08/02/16 [History] Tofacitinib Citrate [Xeljanz] 5 mg PO BID 08/02/16 [History] Pregabalin [Lyrica] 75 mg PO HS 10/11/16 [History] Adreno Support Herbal 1 tab PO DAILY 12/17/16 [History] Beclomethasone Dipropionate [Qvar 80 mcg] 1 puff INHALATION RT-BID 12/17/16 [ History] Fluticasone Nasal [place] [Flonase Nasal [place]] 1 spray EA NOSTRIL DAILY PRN 12/17 [History] Lung Support Herbal 1 tab PO DAILY 12/17/16 [History] Metolazone [Zaroxolyn] 5 mg PO BID PRN 12/17/16 [History] Montelukast [Singulair] 10 mg PO HS 12/17/16 [History] Mupirocin 2% Nasal Oint [Bactroban 2% Nasal Oint] 1 applic EA NOSTRIL TID [History] predniSONE 5 mg PO Q72H 12/17/16 [History] prednisoLONE ACETATE 1% OPHTH [Pred Forte 1%] 1 drops BOTH EYES BID 12/17/16 [ History] Aspirin 81 mg PO DAILY 12/20/16 [Rx] Docusate [Colace] 100 mg PO BID PRN cap 12/20/16 [Rx] Nitroglycerin Sl Tabs [Nitrostat] 0.4 mg SUBLINGUAL Q5M PRN #50 12/20/16 [Rx] Follow up Appointment(s)/Referral(s): Eugene Miles MD [STAFF PHYSICIAN] - As Needed (Appointment with Dr. Rasheed) Delmy Shore MD [STAFF PHYSICIAN] - 01/02/17 2:30 pm Amador Culver DO [Primary Care Provider] - 1 Week Patient Instructions/Handouts: Angina (GEN) Discharge Disposition: HOME SELF-CARE
== END 2016-12-20 14:29 | disposition home or self-care (01) ==
LOC: EC 18:17 → 3OBS 23:24
PROVIDERS: ADMIT Internal Medicine; ATTEND Internal Medicine
DX: R07.89 Other chest pain (principal); M06.9 Rheumatoid arthritis, unspecified; Z86.711 Personal history of pulmonary embolism; M51.36 Other intervertebral disc degeneration, lumbar region; J44.9 Chronic obstructive pulmonary disease, unspecified; Z79.51 Long term (current) use of inhaled steroids; G47.33 Obstructive sleep apnea (adult) (pediatric); Z79.899 Other long term (current) drug therapy; Z79.52 Long term (current) use of systemic steroids; I50.9 Heart failure, unspecified; I11.0 Hypertensive heart disease with heart failure; E78.5 Hyperlipidemia, unspecified; Z99.89 Dependence on other enabling machines and devices; Z80.3 Family history of malignant neoplasm of breast; Z80.1 Family history of malignant neoplasm of trachea, bronchus and lung; Z77.090 Contact with and (suspected) exposure to asbestos; E66.01 Morbid (severe) obesity due to excess calories; Z68.41 Body mass index [BMI] 40.0-44.9, adult; Z79.01 Long term (current) use of anticoagulants; R06.02 Shortness of breath; F17.210 Nicotine dependence, cigarettes, uncomplicated; I25.10 Atherosclerotic heart disease of native coronary artery without angina pectoris; E78.00 Pure hypercholesterolemia, unspecified; H26.9 Unspecified cataract
CPT/HCPCS: 96375 ×4; 96366 ×15; 96376 ×6; 96365 ×2; 99285; 36415; 94640 ×3; 93005; 93017; 93306; 85379; 83880; 80061; 80053; 82150; 82550 ×2; 82553 ×2; 83690; 83735; 84484 ×2; 85025; 85610; 85730 ×2; 71020; 76705; 75635; 71275; G0378 ×4; C8928; S4990 ×3; J1250; J2270 ×2; J1644 ×4; Q9967; J2405; Q9957; J1170; J7512; 93350

== ENCOUNTER 2017-01-18 16:31 | Observation (INO) | payer OTHER ==
[2017-01-18] MEDS ORDERED: ONDANSETRON 4 MG/2 ML VIAL IVP STA (16:48)
[2017-01-18] MEDS ORDERED: SODIUM CHLORIDE 0.9% 1,000 ML IV STA ×2 (16:48)
[2017-01-18] MEDS ORDERED: HYDROmorphone 1 MG/ML 1 ML SYRINGE IVP STA (16:48)
--- NOTE | 2017-01-18 16:59 | ED ---
Abdominal Pain HPI - General Chief Complaint: Abdominal Pain Stated Complaint: Abd Pain Time Seen by Provider: 01/18/17 16:38 Source: patient, RN notes reviewed, old records reviewed Mode of arrival: ambulatory Limitations: no limitations - History of Present Illness Initial Comments: This is a 56-year-old male presents emergency Department chief complaint of right upper quadrant pain intermittently for the past week. Patient reports that over the past month he's been dealing with constipation. Patient presented have a bowel movement 2 days ago but instructed take a stool softener. Patient is unsure if this pain is related to constipation or her another issue. Patient was admitted to the hospital for unstable angina on and had a full workup. Patient reports that he denies any chest pain or shortness of breath at this time. Patient denies any difficulty with urinating. He reports that over the past few days he is had numerous episodes of vomiting. Denies any blood in his emesis, denies any fever or chills.Patient denies any recent fever, chills, shortness of breath, chest pain , numbness or tingling, dysuria or hematuria, constipation or diarrhea, headaches or visual changes, or any other current symptoms - Related Data Home Medications Medication Instructions Recorded Confirmed Bumetanide [BUMEX] 2 mg PO BID 08/02/16 01/18/17 Potassium Chloride ER [K-Dur 20] 20 meq PO QAM 08/02/16 01/18/17 Tofacitinib Citrate [Xeljanz] 5 mg PO BID 08/02/16 01/18/17 Adreno Support Herbal 1 tab PO DAILY 12/17/16 01/18/17 Beclomethasone Dipropionate [Qvar 1 puff INHALATION RT-BID 12/17/16 01/18/17 80 mcg] Lung Support Herbal 1 tab PO DAILY 12/17/16 01/18/17 Metolazone [Zaroxolyn] 5 mg PO BID PRN 12/17/16 01/18/17 Montelukast [Singulair] 10 mg PO HS 12/17/16 01/18/17 predniSONE 5 mg PO Q4D 12/17/16 01/18/17 Adalimumab [Humira Pen] 40 mg SQ [id number] 01/18/17 01/18/17 Aspirin EC [Ecotrin] 325 mg PO HS 01/18/17 01/18/17 Methocarbamol [Robaxin] 500 mg PO TID PRN 01/18/17 01/18/17 Pregabalin [Lyrica] 150 mg PO HS 01/18/17 01/18/17 Previous Rx's Medication Instructions Recorded Nitroglycerin Sl Tabs [Nitrostat] 0.4 mg SUBLINGUAL Q5M PRN #50 12/20/16 Allergies Allergy/AdvReac Type Severity Reaction Status Date / Time No Known Allergies Allergy Verified 01/18/17 16:36 Review of Systems ROS Statement: Those systems with pertinent positive or pertinent negative responses have been documented in the HPI. ROS Other: All systems not noted in ROS Statement are negative. Past Medical History Past Medical History: Coronary Artery Disease (CAD), Heart Failure, COPD, Hyperlipidemia, Hypertension, Pulmonary Embolus (PE), Rheumatoid Arthritis (RA) , Sleep Apnea/CPAP/BIPAP Additional Past Medical History / Comment(s): rheumatoid arthritis, 2 pulmonary embolisms right lung and 1 pulmonary embolism L lung, cataracts bilaterally and watery eyes bilaterally, pt states 100 pound unexplained wt gain about 18 months ago, obstructive sleep apnea with CPAP. History of Any Multi-Drug Resistant Organisms: None Reported Past Surgical History: Heart Catheterization, Tonsillectomy Additional Past Surgical History / Comment(s): 2013 cardiac cath with mild CAD, cervical fusion (ACDF), colonoscopy 1-1/2 years ago-normal. Past Anesthesia/Blood Transfusion Reactions: No Reported Reaction Past Psychological History: No Psychological Hx Reported Smoking Status: Current every day smoker Past Alcohol Use History: None Reported Past Drug Use History: None Reported - Past Family History Mother Family Medical History: Cancer, Congestive Heart Failure (CHF) Additional Family Medical History / Comment(s): breast cancer. Mother of CHF at the age of 84 yrs. Father Family Medical History: Cancer, COPD, CVA/TIA Additional Family Medical History / Comment(s): lung cancer. Father of copd at the age of 79yrs. Sister(s) Family Medical History: Deep Vein Thrombosis (DVT) Additional Family Medical History / Comment(s): Patient has one sister that at age 55 from a brain aneurysm. He has 3 other sisters with no major medical problems. Brother(s) Additional Family Medical History / Comment(s): Patient has 3 brothers and one has history of coronary artery disease status post CABG and lap band surgery. Son(s) Additional Family Medical History / Comment(s): Patient has one son with history of drug and alcohol addiction. General Exam Limitations: no limitations General appearance: alert, in no apparent distress Head exam: Present: atraumatic, normocephalic, normal inspection Eye exam: Present: normal appearance, PERRL, EOMI. Absent: scleral icterus, conjunctival injection, periorbital swelling ENT exam: Present: normal exam, mucous membranes moist Neck exam: Present: normal inspection. Absent: tenderness, meningismus, lymphadenopathy Respiratory exam: Present: normal lung sounds bilaterally. Absent: respiratory distress, wheezes, rales, rhonchi, stridor Cardiovascular Exam: Present: regular rate, normal rhythm, normal heart sounds. Absent: systolic murmur, diastolic murmur, rubs, gallop, clicks GI/Abdominal exam: Present: soft, tenderness (Right upper quadrant tenderness), normal bowel sounds. Absent: distended, guarding, rebound, rigid Extremities exam: Present: normal inspection, full ROM, normal capillary refill. Absent: tenderness, pedal edema, joint swelling, calf tenderness Back exam: Present: normal inspection Neurological exam: Present: alert, oriented X3, CN II-XII intact Psychiatric exam: Present: normal affect, normal mood Skin exam: Present: warm, dry, intact, normal color. Absent: rash Course Vital Signs 01/18/17 01/18/17 01/18/17 16:33 18:50 20:00 Temperature 98.6 F 98.2 F Pulse Rate 127 H 102 H 80 Pulse Rate [ Pulse Oximetery ] Respiratory 20 16 14 Rate Blood Pressure 131/82 141/73 153/87 Blood Pressure [Right Arm] O2 Sat by Pulse 96 92 L 100 Oximetry 01/18/17 22:48 Temperature 98.7 F Pulse Rate Pulse Rate [ 101 H Pulse Oximetery ] Respiratory 16 Rate Blood Pressure Blood Pressure 112/75 [Right Arm] O2 Sat by Pulse 92 L Oximetry Medical Decision Making - Medical Decision Making This is a 56-year-old male presents emergency Department chief complaint of right upper quadrant pain intermittently for the past week. Patient reports that over the past month he's been dealing with constipation. Patient presented have a bowel movement 2 days ago but instructed take a stool softener. Patient is unsure if this pain is related to constipation or her another issue. Patient was admitted to the hospital for unstable angina on and had a full workup. Patient reports that he denies any chest pain or shortness of breath at this time. Patient's elbow was reviewed. Patient is a low potassium at 2.6. Patient is given 40 mg by mouth daily regimen as well. Gallbladder ultrasound was shown a stable hepatic cyst. Discussed with Ti. He requests CT abdomen and pelvis. CT abdomen and pelvis is negative for any acute process. We will be keeping the patient for intractable nausea and vomiting and hypokalemia. Patient was informed of this. Patient be started on Protonix and GI cocktail as well, likely origin of his pain could be related to a duodenal ulcer. Patient may need a HIDA scan as well. - Lab Data Result diagrams: 01/18/17 17:00 01/18/17 17:00 Lab Results 01/18/17 01/18/17 01/18/17 Range/Units 17:00 17:00 17:00 WBC 9.1 (3.8-10.6) k/uL RBC 6.45 H (4.30-5.90) m/uL Hgb 15.9 (13.0-17.5) gm/dL Hct 50.7 (39.0-53.0) % MCV 78.7 L (80.0-100.0) fL MCH 24.7 L (25.0-35.0) pg MCHC 31.4 (31.0-37.0) g/dL RDW 17.6 H (11.5-15.5) % Plt Count 258 (150-450) k/uL Neutrophils % 52 % Lymphocytes % 37 % Monocytes % 6 % Eosinophils % 1 % Basophils % 1 % Neutrophils # 4.7 (1.3-7.7) k/uL Lymphocytes # 3.3 (1.0-4.8) k/uL Monocytes # 0.6 (0-1.0) k/uL Eosinophils # 0.0 (0-0.7) k/uL Basophils # 0.1 (0-0.2) k/uL Hypochromasia Slight Anisocytosis Slight Microcytosis Slight Sodium 135 L (137-145) mmol/L Potassium 2.7 L* (3.5-5.1) mmol/L Chloride 87 L (98-107) mmol/L Carbon Dioxide 36 H (22-30) mmol/L Anion Gap 12 mmol/L BUN 25 H (9-20) mg/dL Creatinine 1.01 (0.66-1.25) mg/dL Est GFR (MDRD) Af Amer >60 (>60 ml/min/1.73 sqM) Est GFR (MDRD) Non-Af >60 (>60 ml/min/1.73 sqM) Glucose 139 H (74-99) mg/dL Plasma Lactic Acid Harold[place] 2.9 H* (0.7-2.0) mmol/L Calcium 9.0 (8.4-10.2) mg/dL Magnesium (1.6-2.3) mg/dL Total Bilirubin 0.9 (0.2-1.3) mg/dL AST 47 (17-59) U/L ALT 54 (21-72) U/L Alkaline Phosphatase 91 (38-126) U/L Total Protein 7.4 (6.3-8.2) g/dL Albumin 4.0 (3.5-5.0) g/dL Amylase 83 (30-110) U/L Lipase 164 (23-300) U/L Urine Color Urine Appearance (Clear) Urine pH (5.0-8.0) Ur Specific [place] (1.001-1.035) Urine Protein (Negative) Urine Glucose (UA) (Negative) Urine Ketones (Negative) Urine Blood (Negative) Urine Nitrite (Negative) Urine Bilirubin (Negative) Urine Urobilinogen (<2.0) mg/dL Ur Leukocyte Esterase (Negative) 01/18/17 01/18/17 Range/Units 17:00 18:08 WBC (3.8-10.6) k/uL RBC (4.30-5.90) m/uL Hgb (13.0-17.5) gm/dL Hct (39.0-53.0) % MCV (80.0-100.0) fL MCH (25.0-35.0) pg MCHC (31.0-37.0) g/dL RDW (11.5-15.5) % Plt Count (150-450) k/uL Neutrophils % % Lymphocytes % % Monocytes % % Eosinophils % % Basophils % % Neutrophils # (1.3-7.7) k/uL Lymphocytes # (1.0-4.8) k/uL Monocytes # (0-1.0) k/uL Eosinophils # (0-0.7) k/uL Basophils # (0-0.2) k/uL Hypochromasia Anisocytosis Microcytosis Sodium (137-145) mmol/L Potassium (3.5-5.1) mmol/L Chloride (98-107) mmol/L Carbon Dioxide (22-30) mmol/L Anion Gap mmol/L BUN (9-20) mg/dL Creatinine (0.66-1.25) mg/dL Est GFR (MDRD) Af Amer (>60 ml/min/1.73 sqM) Est GFR (MDRD) Non-Af (>60 ml/min/1.73 sqM) Glucose (74-99) mg/dL Plasma Lactic Acid Harold[place] (0.7-2.0) mmol/L Calcium (8.4-10.2) mg/dL Magnesium 2.6 H (1.6-2.3) mg/dL Total Bilirubin (0.2-1.3) mg/dL AST (17-59) U/L ALT (21-72) U/L Alkaline Phosphatase (38-126) U/L Total Protein (6.3-8.2) g/dL Albumin (3.5-5.0) g/dL Amylase (30-110) U/L Lipase (23-300) U/L Urine Color Yellow Urine Appearance Clear (Clear) Urine pH 6.5 (5.0-8.0) Ur Specific [place] 1.020 (1.001-1.035) Urine Protein Trace H (Negative) Urine Glucose (UA) Negative (Negative) Urine Ketones 1+ H (Negative) Urine Blood Negative (Negative) Urine Nitrite Negative (Negative) Urine Bilirubin Negative (Negative) Urine Urobilinogen 2.0 (<2.0) mg/dL Ur Leukocyte Esterase Negative (Negative) - Radiology Data Radiology results: report reviewed Evidence of hepatic cyst. Normal gallbladder. Exam limited due to patient's body habitus. KUB is negative for any suspicious air-fluid levels, no organomegaly. No free air is evident. CT abdomen and pelvis is negative for any acute process. Disposition Clinical Impression: Intractable nausea and vomiting, Hypokalemia, Dehydration Disposition: ADMITTED IP TO THIS HOSP Condition: Stable Time of Disposition: 19:49
[2017-01-18 17:50] LABS: Anisocytosis Slight; Basophils # (A) 0.1 k/uL (0-0.2); Basophils % (A) 1 %; CH 25.3; CHCM 32.2; Eosinophils % (A) 1 %; HCT 50.7 % (39.0-53.0); HDW 2.85; HGB 15.9 gm/dL (13.0-17.5); Hypochromasia Slight; Luc # (Auto) 0.36; Luc % (Auto) 4; Lymphocytes # (A) 3.3 k/uL (1.0-4.8); Lymphocytes % (A) 37 %; MCH 24.7 pg (25.0-35.0); MCHC 31.4 g/dL (31.0-37.0); MCV 78.7 fL (80.0-100.0); Mean Platelet Volume 7.4; Microcytosis Slight; Monocytes # (A) 0.6 k/uL (0-1.0); Monocytes % (A) 6 %; Neutrophils # (A) 4.7 k/uL (1.3-7.7); Neutrophils % (A) 52 %; RBC 6.45 m/uL (4.30-5.90); RDW 17.6 % (11.5-15.5); WBC 9.1 k/uL (3.8-10.6); WBC (Perox) 8.41
--- NOTE | 2017-01-18 17:50 | US ---
EXAMINATION TYPE: US gallbladder DATE OF EXAM: 01/18/2017 COMPARISON: 12/17/2016 CLINICAL HISTORY: Pain. Epigastric and RUQ pain, nausea EXAM MEASUREMENTS: Liver Length: 17.4 cm Gallbladder Wall: 0.3 cm CBD: 0.4 cm Right Kidney: 10.8 x 5.9 x 4.7 cm Pancreas: obscured by overlying bowel content Liver: limited evaluation, upper limits of normal in size, best visualized intercostally, cystic are a = 1.7 x 1.2 x 2.0cm Gallbladder: no evidence of stones as seen Evidence for sonographic Tim's sign: no CBD: visualized portion appears wnl Right Kidney: no evidence of hydronephrosis or mass Technical limitations due to patient's large body habitus and interfering bowel content IMPRESSION: 1. Hepatic cyst. 2. Normal gallbladder. 3 exam limited due to patient body habitus.
[2017-01-18 17:51] LABS: ALT 54 U/L (21-72); AST 47 U/L (17-59); Alkaline Phosphatase 91 U/L (38-126); Amylase 83 U/L (30-110); Anion Gap 12 mmol/L; Blood Urea Nitrogen 25 mg/dL (9-20); Carbon Dioxide 36 mmol/L (22-30); Chloride 87 mmol/L (98-107); Glucose 139 mg/dL (74-99); Non-African American GFR(MDRD) >60 (>60 ml/min/1.73 sqM); Sodium 135 mmol/L (137-145); Total Bilirubin 0.9 mg/dL (0.2-1.3); Total Protein 7.4 g/dL (6.3-8.2)
[2017-01-18 17:54] LABS: Potassium 2.7 mmol/L (3.5-5.1)
--- NOTE | 2017-01-18 17:54 | XR ---
EXAMINATION TYPE: XR KUB DATE OF EXAM: 01/18/2017 COMPARISON: 10/11/2016 INDICATION: Abdomen pain right side TECHNIQUE: Single view abdomen upright view FINDINGS: There is a normal bowel gas pattern. Psoas margins are normal. No organomegaly is present. No free air is evident. No suspicious differential air-fluid levels are present. No mass effect is ev ident. IMPRESSION: 1. Unremarkable Abdomen
[2017-01-18] MEDS ORDERED: SODIUM CHLORIDE 0.9% 1,000 ML IV ONE (18:19)
[2017-01-18] MEDS ORDERED: RX INFO: IV CONTRAST WAS GIVEN 1 EACH MISC MISCELLANE PRN (18:23)
[2017-01-18 18:29] LABS: Appearance,Urine Clear (Clear); Bilirubin,Urine Negative (Negative); Glucose,Urine (UA) Negative (Negative); Ketones,Urine 1+ (Negative); Leukocyte Esterase,Urine Negative (Negative); Nitrite,Urine Negative (Negative); PH, Urine 6.5 (5.0-8.0); Protein,Urine Trace (Negative); UA Billing (MACRO vs. MICRO) CHEM
--- NOTE | 2017-01-18 19:24 | CT ---
EXAMINATION TYPE: CT abdomen pelvis w con DATE OF EXAM: 01/18/2017 COMPARISON: 12/17/2016 INDICATION: Abdominal pain and constipation x10 days. DLP: 2202.4 mGycm, Automated exposure control for dose reduction was used. CONTRAST: 100 mL of Omnipaque 300. Study performed without Oral Contrast TECHNIQUE: Axial images were obtained from above the diaphragm to the pubic rami in the axial plane a t 5 mm thick sections. Reconstructed images are reviewed on the computer in the coronal plane. FINDINGS: Limited CT sections are obtained the lung bases. Minimal compressive atelectasis within the dependen t portions of the lung bases bilaterally.. CT ABDOMEN: Liver: Normal Spleen: Normal Pancreas: Fatty infiltration. Adrenal glands: The adrenal glands are normal. Gallbladder: Normal Kidneys: No masses are evident. No hydronephrosis is present. No cysts are present. Delayed images were obtained through the kidneys, which remain unremarkable. Aorta: Vascular calcification is within the aorta. Inferior vena cava: Normal. CT PELVIS: Loops of bowel within the abdomen and pelvis are normal. There are loops of bowel which are incom pletely distended or lack oral contrast limiting their evaluation. Appendix: Normal as visualized. Urinary bladder: Normal. Genitourinary structures: Prostate is minimal prominence calcification. Osseous structures: No suspicious lytic or sclerotic lesions. IMPRESSIONS: 1. Minimal compressive atelectasis within the dependent lung bases. 2. CT abdomen pelvis otherwise unremarkable.
[2017-01-18] MEDS ORDERED: IBUPROFEN 600 MG TAB PO STA (19:48)
[2017-01-18] MEDS ORDERED: POTASSIUM CHLORIDE ER 20 MEQ TAB.ER PO STA (19:49)
[2017-01-18] MEDS ORDERED: PANTOPRAZOLE 40 MG/10 ML VIAL IVP STA (19:52)
[2017-01-18] MEDS ORDERED: ACETAMINOPHEN TAB 325 MG TAB PO PRN (19:53)
[2017-01-18] MEDS ORDERED: HYDROcodone/APAP 5-325MG 1 EACH TAB PO PRN (19:53)
[2017-01-18] MEDS ORDERED: MAG HYDROX/AL HYDROX/SIMETH 30 ML, HYOSCYAMINE ELIXIR 10 ML, CIMETIDINE HCL 300 MG, LID... PO STA ×4 (19:53)
[2017-01-18] MEDS ORDERED: HYDROmorphone 1 MG/ML 1 ML SYRINGE IV PRN (19:53)
[2017-01-18] MEDS ORDERED: NALOXONE 0.4 MG/ML 1 ML VIAL IV PRN (19:53)
[2017-01-18] MEDS ORDERED: BISACODYL 5 MG TABLET.DR PO PRN (19:53)
[2017-01-18] MEDS ORDERED: ONDANSETRON 4 MG/2 ML VIAL IVP PRN (19:53)
[2017-01-18] MEDS ORDERED: METHOCARBAMOL 500 MG TAB PO PRN (20:39)
[2017-01-18] MEDS ORDERED: METOLAZONE 5 MG TAB PO PRN (20:39)
[2017-01-18] MEDS ORDERED: NITROGLYCERIN SL TABS 0.4 MG TAB SUBLINGUAL PRN (20:39)
[2017-01-18] MEDS ORDERED: TOFACITINIB CITRATE 5 MG PO SCH (21:00)
[2017-01-18] MEDS: SODIUM CHLORIDE 0.9% 1,000 ML IV SCH (22:57)
[2017-01-18] MEDS: ASPIRIN 325 MG TAB PO SCH (22:58)
[2017-01-18] MEDS: BUMETANIDE 1 MG TAB PO SCH (22:58)
[2017-01-18] MEDS: MONTELUKAST 10 MG TAB PO SCH (23:00)
[2017-01-18] MEDS: PREGABALIN 75 MG CAP PO SCH (23:57)
[2017-01-19] MEDS: POTASSIUM CHLORIDE 10 MEQ, LIDOCAINE 2% INJ 10 MG in SODIUM CHLORIDE 0.9% 100 ML IVPB SCH ×4 (01:42)
[2017-01-19] MEDS ORDERED: Potassium Replacement Protocol 1 EACH MISC MISCELLANE PRN (05:49)
[2017-01-19] MEDS: POTASSIUM CHLORIDE 10 MEQ, LIDOCAINE 2% INJ 10 MG in SODIUM CHLORIDE 0.9% 100 ML IV SCH ×3 (06:22→09:04)
[2017-01-19] MEDS: BUDESONIDE 0.5 MG/2 ML NEBU INHALATION SCH ×2 (07:28→19:54)
[2017-01-19] MEDS: NICOTINE 21MG/24HR PATCH TRANSDERM SCH ×3 (07:49→07:54)
[2017-01-19] MEDS: SODIUM CHLORIDE 0.9% 1,000 ML IV SCH ×3 (07:49→20:00)
[2017-01-19] MEDS: PANTOPRAZOLE 40 MG/10 ML VIAL IV SCH (07:50)
[2017-01-19] MEDS: BUMETANIDE 1 MG TAB PO SCH ×2 (07:50→16:11)
[2017-01-19 07:56] LABS: Anion Gap 8 mmol/L; Blood Urea Nitrogen 22 mg/dL (9-20); Carbon Dioxide 35 mmol/L (22-30); Chloride 94 mmol/L (98-107); Glucose 114 mg/dL (74-99); Non-African American GFR(MDRD) >60 (>60 ml/min/1.73 sqM); Potassium 3.1 mmol/L (3.5-5.1); Sodium 137 mmol/L (137-145)
[2017-01-19] MEDS ORDERED: MAGNESIUM CITRATE 296 ML BOTTLE PO ONE (10:30)
--- NOTE | 2017-01-19 14:22 | HP ---
DATE OF ADMISSION: CHIEF COMPLAINT: Abdominal pain, nausea. HISTORY OF PRESENT ILLNESS: This is a 56-year-old male who presented to the hospital with abdominal pain and nausea. The patient said that for the last month he has been having abdominal distention, feeling nauseous and decreased in appetite. The patient said that he tried to slow down on diet and eat small meals and focus on the liquid more than solid food. Patient continued to have problem with nausea but did not throw up. Patient continued to have that for 3 weeks up until 3 days ago where he had worsening in his symptoms, was not able to eat or drink and did not know the exact reason, but said that he has been without bowel movement for 10 days and that cost him to be distended. Patient presented to the emergency, where his potassium was found 2.7. Lactic acid slightly elevated above 2. He received IV fluids and kept on clear liquid diet and this morning he had much improvement. Still having some tenderness on the right side located to the mid area and said that he is still passing gas, but no bowel movement. The patient had colonoscopy 5 years ago, which was normal, had family history of colon cancer in his father at age 84. Patient denied any history of EGD in the past. Denied any blood in the stool. Denied any weight loss, vomiting, or change in his sleep or low grade fever. Patient said that he is a full-time employee and has been active and no change in his energy level. Still smokes 1 pack per day. He denied alcohol or drug abuse. REVIEW OF SYSTEMS: All 14 systems reviewed and negative except as above. ALLERGIES: No known drug allergies. HOME MEDICATIONS: Reviewed and reconciled on chart. PAST MEDICAL HISTORY: Significant for asthma, obesity, chronic back pain, chronic lower extremity edema, rheumatoid arthritis, congestive heart failure, COPD, hyperlipidemia, hypertension, history of PE, a year and a half ago when he was treated for one year with anticoagulant and switched recently to aspirin 325 mg coated pill, obstructive sleep apnea on CPAP at home, cataract. PAST SURGICAL HISTORY: Cardiac catheterization, tonsillectomy, cervical fusion, colonoscopy, cataract surgery. SOCIAL HISTORY: He smokes 1 pack per day. No alcohol or drug abuse. FAMILY HISTORY: Positive for colon cancer at age 84. Mother of congestive heart failure. PHYSICAL EXAMINATION: VITAL SIGNS: Reviewed and stable. GENERAL: In his stated age, no acute distress. HEENT: Atraumatic, normocephalic. PERRLA. NECK: Supple, no masses. No thyromegaly. LUNGS: Clear to auscultation bilaterally. HEART: Normal S1, S2. ABDOMEN: Soft, no tenderness, positive bowel sounds in all 4 quadrants. Positive for mild tenderness and right-sided Tim sign was negative. Appendix area was negative for any tenderness or rebound. LOWER EXTREMITIES: Trace edema. PSYCH: Alert, and oriented x3. NEURO: No focal deficit. Cranial nerves 2 through 12 are intact. SKIN: No new rash. IMAGING AND LABS: CBC revealed normal findings. Chemistry revealed mild hyponatremia 135, potassium was profoundly low at 2.7, glucose 139. Liver function tests within normal limits. Albumin 4.0. Lipase within normal limits. UA was negative. KUB is negative for any obstruction. Ultrasound of the abdomen negative for any gallbladder pathology. CAT scan of the abdomen negative for any acute process. ASSESSMENT AND PLAN: 1. Abdominal pain, etiology is not clear, but I explained to the patient this could be multifactorial including constipation and recent starting use for aspirin 325 daily. I advised the patient to take Protonix 40 mg daily. Continue taking the aspirin given the fact that he was switched from Coumadin to aspirin as anticoagulation by his primary care physician according to his story. I explained to the patient to avoid any NSAIDs and need to have EGD done outpatient to be referred by his primary care physician, as patient refused to stay in the hospital for that reason. I would like to give patient magnesium citrate and if there is no bowel movement, we will give him lactulose and have patient some bowel regimen outpatient. 2. Hypokalemia, likely related to decreased oral intake and nausea, replaced and 3.1 this morning. Will have patient repeat the blood work next week with his primary care physician. 3. Lactic acidosis resolved and responded to fluid, likely secondary to dehydration. 4. Rheumatoid arthritis. Will continue Humira and prednisone, seems to be in remission at this point. 5. Chronic back pain. Continue home regimen. 6. Hypertension, under fair control. 7. Mild coronary artery disease. Will continue monitoring and continue cardiac meds. Discharge planning today if patient has bowel movement.
[2017-01-19] MEDS ORDERED: LACTULOSE 20 GM/30 ML CUP PO ONE (15:48)
[2017-01-19] MEDS: MAGNESIUM SULFATE-D5W PMX 1 GM in DEXTROSE/WATER 1 100ML.BAG IVPB SCH ×2 (17:12→19:30)
[2017-01-19] MEDS ORDERED: POTASSIUM CHLORIDE 20 MEQ, LIDOCAINE 2% INJ 20 MG in SODIUM CHLORIDE 0.9% 100 ML IVPB ONE (18:00)
[2017-01-19] MEDS: POTASSIUM CHLORIDE ER 20 MEQ TAB.ER PO SCH ×2 (19:29→21:14)
[2017-01-19] MEDS: ASPIRIN 325 MG TAB PO SCH (19:54)
[2017-01-19] MEDS: MONTELUKAST 10 MG TAB PO SCH (19:55)
[2017-01-19] MEDS: PREGABALIN 75 MG CAP PO SCH (20:00)
[2017-01-19 23:36] VITALS: RESP 16
[2017-01-20] MEDS: BUDESONIDE 0.5 MG/2 ML NEBU INHALATION SCH (07:17)
[2017-01-20 07:52] LABS: Magnesium 2.3 mg/dL (1.6-2.3)
[2017-01-20 08:02] LABS: Potassium 2.6 mmol/L (3.5-5.1)
[2017-01-20] MEDS: SODIUM CHLORIDE 0.9% 1,000 ML IV SCH ×2 (08:32→17:13)
[2017-01-20] MEDS ORDERED: POTASSIUM CHLORIDE 20 MEQ, LIDOCAINE 2% INJ 20 MG in SODIUM CHLORIDE 0.9% 100 ML IVPB ONE ×2 (09:00→12:00)
[2017-01-20] MEDS: NICOTINE 21MG/24HR PATCH TRANSDERM SCH (09:02)
[2017-01-20] MEDS: BUMETANIDE 1 MG TAB PO SCH ×2 (09:02→17:13)
[2017-01-20] MEDS: PANTOPRAZOLE 40 MG/10 ML VIAL IV SCH (09:02)
[2017-01-20] MEDS: POTASSIUM CHLORIDE ER 20 MEQ TAB.ER PO SCH ×4 (10:28→20:02)
[2017-01-20 14:29] VITALS: BP 127/75; PULSE 102; TEMP 98.4
[2017-01-20] MEDS ORDERED: SPIRONOLACTONE 25 MG TAB PO SCH (14:30)
--- NOTE | 2017-01-20 15:27 | CONS ---
DATE OF CONSULTATION: 01/20/2017 REASON FOR CONSULTATION: Hypokalemia. HISTORY OF PRESENT ILLNESS: Patient is a 56-year-old male who has a history of hypertension, asthma, obesity, CHF, COPD, previous history of PE, chronic back pain, rheumatoid arthritis. He was admitted to the hospital with numbness and tingling in his legs, feeling weak and tired. He also had some abdominal pain and nausea. He was noted to have a potassium of 2.7 mEq/L on initial admission. Patient is maintained on large amount of diuretics in the form of Bumex and he stated that Zaroxolyn was recently added as well as outpatient. Echocardiogram on 12/18/2016 shows ejection fraction 50% to 55%. Patient denies any diarrhea and no significant vomiting. His magnesium was not low on this admission. PAST MEDICAL HISTORY: Hypertension, history of PE, coronary artery disease, diastolic dysfunction, hyperlipidemia, rheumatoid arthritis, obstructive sleep apnea. PAST SURGICAL HISTORY: Cardiac catheterization, tonsillectomy, cervical fusion, colonoscopy. SOCIAL HISTORY: Positive for smoking. No history of drug abuse or alcohol abuse. Medications at home included: Bumex, K-Dur, Zaroxolyn, Singulair, prednisone, insulin, Robaxin, Lyrica, Ecotrin, Nitrostat. ALLERGIES: None. REVIEW OF SYSTEMS: As per HPI. Other systems negative. On examination, the patient is comfortable, awake, not in any acute distress. Blood pressure is 130/83, heart rate 94 per minute. He is afebrile. Examination of the heart: S1 and S2. Examination of the lungs: Bilateral breath sounds are heard. No crackles or wheezing is heard. Abdomen is soft, nontender, obese. Examination of lower extremities shows no significant edema. [employer]OTH [employer]ER exam is grossly intact. Labs revealed sodium 137, potassium last level was 2.6. Magnesium 2.3, serum creatinine 0.97. ASSESSMENT: Hypokalemia secondary to diuretics. We will continue to replace aggressively. He is not hypomagnesemic. Patient does not have history of uncontrolled hypertension to warrant work-up for secondary causes like hyperaldosteronism. I do see that he is maintained on Lyrica, which can also be associated with lower extremity edema. I will decrease the Zaroxolyn to 5 mg daily instead of b.i.d. given the fact that he is not significantly hypervolemic at this time. I will also add Aldactone. Will repeat a potassium level after current replacement and decide on further dosing as outpatient. PLAN: Decrease Zaroxolyn and add Aldactone. Continue to replace aggressively. Check random urine potassium. Thank you for this consultation. Will continue to follow the patient with you during his hospitalization.
--- NOTE | 2017-01-21 08:36 | DS ---
DATE OF ADMISSION: 01/18/2017 DATE OF DISCHARGE: 01/20/2017 ADMISSION DIAGNOSES: 1. Abdominal pain with unclear etiology, multifactorial in nature including constipation, possible acid reflux disease. Other etiologies need to be ruled out. 2. Profound hypokalemia. 3. Lactic acidosis. 4. Rheumatoid arthritis. 5. Chronic back pain. 6. Hypertension. 7. Mild coronary artery disease. DISCHARGE DIAGNOSES: 1. Abdominal pain that resolved, likely related to severe constipation. 2. Profound hypokalemia, likely secondary to diuretics as patient is on high dose Bumex. 3. Lactic acidosis resolved. CONSULTATION: Nephrology. HOSPITAL COURSE: This is a 56-year-old male with past medical history significant for rheumatoid arthritis, steroid dependent for the last 4 years who has been dealing with chronic lower extremity swelling and increased dose of Bumex recently presents to the hospital with abdominal pain. Patient was treated with medication for treatment of his 10 days constipation and improved. Abdominal pain, nausea, and gastrointestinal symptoms resolved, but patient continues to have low potassium during the hospital stay. Asked to follow up closely with his primary care physician regarding the dose of Bumex. I informed the patient that the dose of Bumex that he is taking right now is very high and requires high supplement. I decreased the dose to 2 mg twice daily instead of ( ) mg twice daily. I asked him to take the Zaroxolyn as scheduled and to follow up with his primary care physician on Saturday or Saturday to repeat the blood work and show stability of the potassium after prescribing 40 mEq once daily to be given with Bumex medication. The patient understood the risk and benefit from current treatment, advised to stay in the hospital another day but insists that has court appointment tomorrow at 8:00 and he cannot miss that appointment. Patient understands the side effects and risk from having hypokalemia and willing to cooperate and follow up with his primary care physician closely on Saturday or Saturday. Patient was discharged in stable condition.
[2017-01-21] MEDS ORDERED: METOLAZONE 5 MG TAB PO SCH (09:00)
[2017-02-01] MEDS ORDERED: ADALIMUMAB 80 MG/1.6 ML KIT SQ SCH (09:00)
== END 2017-01-20 20:07 | disposition home or self-care (01) ==
LOC: EC 16:31 → 5MS5E 19:59 → INTOOBSV 19:59
PROVIDERS: ADMIT Family Medicine; ATTEND Family Medicine
DX: E86.0 Dehydration (principal); I11.0 Hypertensive heart disease with heart failure; E87.2 Acidosis; I50.30 Unspecified diastolic (congestive) heart failure; E87.6 Hypokalemia; K59.00 Constipation, unspecified; E87.1 Hypo-osmolality and hyponatremia; T50.2X5A Adverse effect of carbonic-anhydrase inhibitors, benzothiadiazides and other diuretics, initial encounter; K76.89 Other specified diseases of liver; J44.9 Chronic obstructive pulmonary disease, unspecified; E78.5 Hyperlipidemia, unspecified; G89.29 Other chronic pain; M06.9 Rheumatoid arthritis, unspecified; I25.10 Atherosclerotic heart disease of native coronary artery without angina pectoris; E66.9 Obesity, unspecified; R53.1 Weakness; R10.11 Right upper quadrant pain; R20.0 Anesthesia of skin; R20.2 Paresthesia of skin; R14.0 Abdominal distension (gaseous); R60.0 Localized edema; K21.9 Gastro-esophageal reflux disease without esophagitis; F17.200 Nicotine dependence, unspecified, uncomplicated; J45.909 Unspecified asthma, uncomplicated; R11.2 Nausea with vomiting, unspecified; M54.9 Dorsalgia, unspecified; G47.33 Obstructive sleep apnea (adult) (pediatric); Z79.82 Long term (current) use of aspirin; Z86.711 Personal history of pulmonary embolism; Z79.899 Other long term (current) drug therapy; Z80.0 Family history of malignant neoplasm of digestive organs; Z82.49 Family history of ischemic heart disease and other diseases of the circulatory system; Z79.52 Long term (current) use of systemic steroids; Z80.3 Family history of malignant neoplasm of breast; Z82.5 Family history of asthma and other chronic lower respiratory diseases; Z80.1 Family history of malignant neoplasm of trachea, bronchus and lung; Z82.3 Family history of stroke; Z98.49 Cataract extraction status, unspecified eye; Z98.1 Arthrodesis status; Z68.39 Body mass index [BMI] 39.0-39.9, adult; Z86.79 Personal history of other diseases of the circulatory system; Z79.51 Long term (current) use of inhaled steroids
CPT/HCPCS: 96365; 96366 ×2; 96361; 96374; 96375; 99285; 36415; 94640 ×3; 94760 ×2; 84300; 80053; 80048; 82150; 83605; 83690; 83735 ×3; 84132 ×2; 85025; 81003; 87040; 74000; 76705; 74177; G0378 ×3; S4990 ×2; J2001 ×2; J2405; J3480 ×2; J1170; Q9967; C9113 ×3

== ENCOUNTER → 2017-01-22 | Outpatient (CLI) | payer OTHER ==
[2017-01-22 13:56] LABS: Anion Gap 8 mmol/L; Blood Urea Nitrogen 15 mg/dL (9-20); Calcium 9.3 mg/dL (8.4-10.2); Carbon Dioxide 28 mmol/L (22-30); Chloride 100 mmol/L (98-107); Glucose 129 mg/dL (74-99); Non-African American GFR(MDRD) >60 (>60 ml/min/1.73 sqM); Potassium 3.5 mmol/L (3.5-5.1); Sodium 136 mmol/L (137-145)
== END | disposition home or self-care (01) ==
LOC: LABWHC1 13:07
PROVIDERS: ATTEND Family Medicine
DX: E87.6 Hypokalemia (principal)
CPT/HCPCS: 36415; 80048

== ENCOUNTER 2017-02-04 19:28 | Emergency (ER) | payer OTHER ==
--- NOTE | 2017-02-04 19:46 | ED ---
Wound/Laceration HPI - General Chief Complaint: Wound/Laceration Stated Complaint: Lac/Hand Time Seen by Provider: 02/04/17 19:30 Source: patient, RN notes reviewed Mode of arrival: ambulatory Limitations: no limitations - History of Present Illness Initial Comments: 56-year-old male presents emergency room chief complaint of left hand laceration. Patient states that he cut it with a lawn mowing blade. Patient states he is up-to-date on tetanus. Patient states he has full range motion the hand and no change in sensation. Patient denies any other injuries from the incident.Patient denies any recent fever, chills, shortness of breath, chest pain, back pain, abdominal pain, nausea vomiting, numbness or tingling, dysuria or hematuria, constipation or diarrhea, headaches or visual changes, or any other current symptoms. - Related Data Home Medications Medication Instructions Recorded Confirmed Bumetanide [BUMEX] 2 mg PO DAILY 08/02/16 01/20/17 Potassium Chloride ER [K-Dur 20] 40 meq PO QAM 08/02/16 01/20/17 Tofacitinib Citrate [Xeljanz] 5 mg PO BID 08/02/16 01/18/17 Adreno Support Herbal 1 tab PO DAILY 12/17/16 01/18/17 Beclomethasone Dipropionate [Qvar 1 puff INHALATION RT-BID 12/17/16 01/18/17 80 mcg] Lung Support Herbal 1 tab PO DAILY 12/17/16 01/18/17 Metolazone [Zaroxolyn] 5 mg PO BID 12/17/16 01/18/17 Montelukast [Singulair] 10 mg PO HS 12/17/16 01/18/17 predniSONE 5 mg PO Q4D 12/17/16 01/18/17 Adalimumab [Humira Pen] 40 mg SQ [id number] 01/18/17 01/18/17 Aspirin EC [Ecotrin] 325 mg PO HS 01/18/17 01/18/17 Methocarbamol [Robaxin] 500 mg PO TID PRN 01/18/17 01/18/17 Pregabalin [Lyrica] 150 mg PO HS 01/18/17 01/18/17 Pantoprazole Sodium [Protonix] 40 mg PO DAILY 01/19/17 01/19/17 Previous Rx's Medication Instructions Recorded Nitroglycerin Sl Tabs [Nitrostat] 0.4 mg SUBLINGUAL Q5M PRN #50 12/20/16 Allergies Allergy/AdvReac Type Severity Reaction Status Date / Time No Known Allergies Allergy Verified 02/04/17 19:38 Review of Systems ROS Statement: Those systems with pertinent positive or pertinent negative responses have been documented in the HPI. ROS Other: All systems not noted in ROS Statement are negative. Past Medical History Past Medical History: Coronary Artery Disease (CAD), Heart Failure, COPD, Hyperlipidemia, Hypertension, Pulmonary Embolus (PE), Rheumatoid Arthritis (RA) , Sleep Apnea/CPAP/BIPAP Additional Past Medical History / Comment(s): rheumatoid arthritis, 2 pulmonary embolisms right lung and 1 pulmonary embolism L lung, cataracts bilaterally and watery eyes bilaterally, pt states 100 pound unexplained wt gain about 18 months ago, obstructive sleep apnea with CPAP. History of Any Multi-Drug Resistant Organisms: None Reported Past Surgical History: Heart Catheterization, Tonsillectomy Additional Past Surgical History / Comment(s): 2012 cardiac cath with mild CAD, cervical fusion (ACDF), colonoscopy 1-1/2 years ago-normal. Past Anesthesia/Blood Transfusion Reactions: No Reported Reaction Past Psychological History: No Psychological Hx Reported Smoking Status: Current every day smoker Past Alcohol Use History: None Reported Past Drug Use History: None Reported - Past Family History Mother Family Medical History: Cancer, Congestive Heart Failure (CHF) Additional Family Medical History / Comment(s): breast cancer. Mother of CHF at the age of 84 yrs. Father Family Medical History: Cancer, COPD, CVA/TIA Additional Family Medical History / Comment(s): lung cancer. Father of copd at the age of 79yrs. Sister(s) Family Medical History: Deep Vein Thrombosis (DVT) Additional Family Medical History / Comment(s): Patient has one sister that at age 55 from a brain aneurysm. He has 3 other sisters with no major medical problems. Brother(s) Additional Family Medical History / Comment(s): Patient has 3 brothers and one has history of coronary artery disease status post CABG and lap band surgery. Son(s) Additional Family Medical History / Comment(s): Patient has one son with history of drug and alcohol addiction. General Exam - General Exam Comments Initial Comments: General: The patient is awake and alert, in no distress, and does not appear acutely ill. Neck: The neck is supple, there is no tenderness. Cardiovascular: There is a regular rate and rhythm. No murmur, rub or gallop is appreciated. Respiratory: Lungs are clear to auscultation, respirations are non-labored, breath sounds are equal. No wheezes, stridor, rales, or rhonchi. Musculoskeletal: Sensation intact with 2+ pulses left upper extremity All Range of motion of left hand and all digits. Patient does appear to have a 3 cm laceration to the dorsal aspect of the left hand. His have full range of motion of all digits. Sensation is intact. Neurological: CN II-XII intact, There are no obvious motor or sensory deficits. Coordination appears grossly intact. Speech is normal. Skin: Skin is warm and dry and no rashes or lesions are noted. Psychiatric: Normal mood and affect. Limitations: no limitations Course Vital Signs 02/04/17 19:39 Temperature 98.7 F Pulse Rate 115 H Respiratory 18 Rate Blood Pressure 141/83 O2 Sat by Pulse 95 Oximetry Procedures - Procedures Initial comment: The skin was anesthetized with 1% lidocaine. The laceration was then cleansed with Betadine and irrigated with normal saline. One internal suture was used to The wound was inspected, and there was no evidence of injury to deep structures. No foreign body was noted in the wound. A total of 8 skin sutures were placed utilizing 5-0 nylon to a left hand laceration. Medical Decision Making - Medical Decision Making 56-year-old male presents for left hand laceration. This time patient's sensation or range of motion is intact. Patient x-ray does not show any radiopaque foreign body. We did discuss care follow-up and return parameters. We discussed the risks for non-radiopaque foreign body. We did discuss all the patient's questions and he is in agreement with plan. This time we will be discharged home. - Radiology Data Radiology results: report reviewed, image reviewed Disposition Clinical Impression: Laceration of left hand Disposition: HOME SELF-CARE Condition: Stable Instructions: Finger Laceration (ED) Additional Instructions: Please use medication as discussed. Please follow up with family doctor if symptoms have not improved over the next two days. Please return to the emergency room if your symptoms increase or worsen or for any other concerns. Referrals: Amador Culver DO [Primary Care Provider] - 1-2 days Time of Disposition: 20:29
[2017-02-04 19:59] VITALS: BP 141/83; PULSE 115; RESP 18; TEMP 98.7
--- NOTE | 2017-02-04 20:22 | XR ---
EXAMINATION TYPE: XR hand complete LT DATE OF EXAM: 02/04/2017 COMPARISON: NONE HISTORY: Injury and pain TECHNIQUE: 3 views FINDINGS: There is narrowing of the second and third MP joints. There is mild spurring at the first c arpometacarpal joint. I see no fracture nor dislocation. There is mild spurring at the PIP joint of t he index finger. IMPRESSION: No fracture. No evidence of foreign-body. Osteoarthritis.
== END 2017-02-04 20:37 | disposition home or self-care (01) ==
LOC: EC 19:28
DX: S61.412A Laceration without foreign body of left hand, initial encounter (principal); W31.89XA Contact with other specified machinery, initial encounter; Y93.H2 Activity, gardening and landscaping; I25.10 Atherosclerotic heart disease of native coronary artery without angina pectoris; Z98.61 Coronary angioplasty status; I10 Essential (primary) hypertension; I50.9 Heart failure, unspecified; E78.5 Hyperlipidemia, unspecified; J44.9 Chronic obstructive pulmonary disease, unspecified; M06.9 Rheumatoid arthritis, unspecified; Z86.711 Personal history of pulmonary embolism; F17.200 Nicotine dependence, unspecified, uncomplicated; Z79.82 Long term (current) use of aspirin; Z79.899 Other long term (current) drug therapy; Z79.51 Long term (current) use of inhaled steroids; Z79.52 Long term (current) use of systemic steroids; M19.041 Primary osteoarthritis, right hand
CPT/HCPCS: 12001; 99283

== ENCOUNTER 2017-02-21 09:32 | Day surgery (SDC) | payer OTHER ==
[2017-02-18 15:35] VITALS: BMI 39.7
[~2017-02-21 09:32] MED LIST: LACTATED RINGERS 1,000 ML IV SCH; LIDOCAINE 1% 20 ML VIAL (10MG/ML) FOR IV START INTRADERMA PRN
[2017-02-21 09:59] VITALS: TEMP 97
[2017-02-21] MEDS ORDERED: LIDOCAINE 1% INJ 10MG/ML (20 ML MDV) ONE (10:07)
[2017-02-21] MEDS ORDERED: PROPOFOL 10 MG/ML 20 ML VIAL IV ONE (10:07)
[2017-02-21] MEDS ORDERED: KETAMINE 10 MG/ML 20 ML VIAL ONE (10:07)
[2017-02-21] MEDS ORDERED: GLYCOPYRROLATE 0.2 MG/ML 2 ML VIAL ONE (10:07)
[2017-02-21 10:08] LABS: Glucose,Whole Blood 97 mg/dL (75-99)
--- NOTE | 2017-02-21 10:35 | P.PCN ---
Date of Procedure: 02/21/17 Preoperative Diagnosis: Postoperative Diagnosis: Procedure(s) Performed: Brief history: Patient is a pleasant 56-year-old white male, scheduled for an elective upper endoscopy as well as colonoscopy as a part of evaluation of abdominal pain, abdominal distention persistent nausea and change in bowel habits for the last 1 year duration. With biopsy Procedure performed: Esophagogastroduodenoscopy with biopsy Colonoscopy with snare polypectomy Preoperative diagnosis: Abdominal pain, postprandial abdominal bloating Change in bowel habits Anesthesia: MAC Procedure: After informed consent was obtained from the patient was brought into the endoscopy unit and IV sedation was administered by anesthesia under continuous monitoring. Initially upper endoscopy was done. The Olympus GF 160 video endoscope was inserted inserted into the mouth and esophagus intubated without any difficulty and was gradually advanced into the stomach and duodenum and carefully examined. The bulb and second part of the duodenum appeared normal. Biopsies were done from this area to rule out celiac disease. The scope was then withdrawn into the stomach adequately insufflated with air and upon careful examination the antrum had mild gastritis and biopsies were done from this area. The body, cardia and fundus appeared normal. The scope was then withdrawn into the esophagus. The GE junction was located at 40 cm to the incisors. It appeared regular with no erythema erosions or ulcerations. Rest of the esophagus appeared normal. Patient tolerated the procedure well. At this time the patient continued to remain sedation. Initial digital rectal examination was normal. Olympus CF 160 video colonoscope was then inserted into the rectum and gradually advanced to the cecum without any difficulty. Careful examination was performed as the scope was gradually being withdrawn. The prep was excellent. The cecum, ascending colon, transverse colon, descending colon, sigmoid colon and rectum appeared normal. in the sigmoid colon there were 3 small polyps measuring 5 mm in size all of which were removed by snare polypectomy. Retroflexion was performed in the rectum and no lesions were noted. Patient tolerated the procedure well. Impression: 1.Upper endoscopy revealed mild antral gastritis, no evidence of esophagitis or peptic ulcer disease 2.Colonoscopy revealed 3 small 5 mm polyps in the sigmoid colon that were removed by snare polypectomy. Rest of the colon appeared normal. Recommendations: Findings of this examination were discussed with the patient as well as his family. He was advised to follow with the biopsy results. If the biopsy shows a tubal adenoma he can have a repeat colonoscopy in 5 years Implants: Indications for Procedure: Operative Findings: Description of Procedure:
[2017-02-21 10:50] VITALS: RESP 16
[2017-02-21 11:01] LABS: Glucose,Whole Blood 101 mg/dL (75-99)
[2017-02-21 11:10] VITALS: BP 124/83; PULSE 96
== END 2017-02-21 11:25 | disposition home or self-care (01) ==
LOC: ORWHC2ENDO 09:32
PROVIDERS: ATTEND Internal Medicine Gastroenterology
DX: K63.5 Polyp of colon (principal); K29.70 Gastritis, unspecified, without bleeding; R19.4 Change in bowel habit; K21.9 Gastro-esophageal reflux disease without esophagitis; E11.9 Type 2 diabetes mellitus without complications; G47.33 Obstructive sleep apnea (adult) (pediatric); I25.10 Atherosclerotic heart disease of native coronary artery without angina pectoris; I11.0 Hypertensive heart disease with heart failure; I50.9 Heart failure, unspecified; E78.5 Hyperlipidemia, unspecified; M06.9 Rheumatoid arthritis, unspecified; Z86.711 Personal history of pulmonary embolism; F17.200 Nicotine dependence, unspecified, uncomplicated; Z79.52 Long term (current) use of systemic steroids; Z79.51 Long term (current) use of inhaled steroids; Z79.899 Other long term (current) drug therapy
CPT/HCPCS: 88305; 88342; 45385; 43239; J2001; J2704

== ENCOUNTER 2017-04-18 23:52 | Emergency (ER) | payer OTHER ==
[2017-04-19] MEDS ORDERED: MORPHINE SULFATE 10 MG/ML SYRINGE IM STA (00:33)
[2017-04-19] MEDS ORDERED: KETOROLAC 60 MG/2 ML VIAL IM STA (00:33)
--- NOTE | 2017-04-19 01:22 | XR ---
EXAM: XR Lumbar Spine, 2 or 3 Views CLINICAL HISTORY: Reason: Pain TECHNIQUE: Frontal and lateral views of the lumbar spine. COMPARISON: No relevant prior studies available. FINDINGS: Vertebrae: No acute fracture or malalignment. Sacrum/coccyx: Hardware in the lumbosacral spine. Disc spaces: Degenerative changes. Soft tissues: No radiodense foreign body. Gastrointestinal tract: Nonspecific bowel gas pattern. IMPRESSION: No acute fracture or malalignment.
[2017-04-19] MEDS ORDERED: ACET/COD 300 MG/30 MG STARTER PACK 6 TAB BTL PO STA (02:03)
--- NOTE | 2017-04-19 02:03 | ED ---
Back Pain HPI - General Chief Complaint: Back Pain/Injury Stated Complaint: back pain Time Seen by Provider: 04/19/17 00:21 Source: patient, RN notes reviewed, old records reviewed Limitations: no limitations - History of Present Illness Initial Comments: This is a 56 year old male with CC of left leg pain and lower back pain for one week. Patient reports he has lumbar back surgery a few weeks ago. Patient reports that he was taking tramadol for the pain, and it hasnt helped. Denies any recent falls to cause this pain, denies any saddle anesthesias or incontinence. Patient relates that the pain is made worse by straightening and lift the left leg. - Related Data Home Medications Medication Instructions Recorded Confirmed Bumetanide [BUMEX] 2 mg PO DAILY 08/02/16 02/18/17 Potassium Chloride ER [K-Dur 20] 40 meq PO QAM 08/02/16 02/18/17 Tofacitinib Citrate [Xeljanz] 5 mg PO BID 08/02/16 02/18/17 Adreno Support Herbal 1 tab PO DAILY 12/17/16 02/18/17 Beclomethasone Dipropionate [Qvar 1 puff INHALATION RT-BID 12/17/16 02/18/17 80 mcg] Lung Support Herbal 1 tab PO DAILY 12/17/16 02/18/17 Metolazone [Zaroxolyn] 5 mg PO BID 12/17/16 02/18/17 Montelukast [Singulair] 10 mg PO HS 12/17/16 02/18/17 predniSONE 5 mg PO Q5D 12/17/16 02/18/17 Adalimumab [Humira Pen] 40 mg SQ [id number] 01/18/17 02/18/17 Aspirin EC [Ecotrin] 325 mg PO HS 01/18/17 02/18/17 Methocarbamol [Robaxin] 500 mg PO TID PRN 01/18/17 02/18/17 Pregabalin [Lyrica] 150 mg PO HS 01/18/17 02/18/17 Pantoprazole Sodium [Protonix] 40 mg PO DAILY 01/19/17 02/18/17 Previous Rx's Medication Instructions Recorded Nitroglycerin Sl Tabs [Nitrostat] 0.4 mg SUBLINGUAL Q5M PRN #50 12/20/16 Dexamethasone 0.75 mg PO DAILY #12 tab 04/19/17 Diazepam [Valium] 5 mg PO BID #10 tab 04/19/17 Allergies Allergy/AdvReac Type Severity Reaction Status Date / Time No Known Allergies Allergy Verified 04/18/17 23:58 Review of Systems ROS Statement: Those systems with pertinent positive or pertinent negative responses have been documented in the HPI. ROS Other: All systems not noted in ROS Statement are negative. Past Medical History Past Medical History: Coronary Artery Disease (CAD), Heart Failure, COPD, Hyperlipidemia, Hypertension, Pulmonary Embolus (PE), Rheumatoid Arthritis (RA) , Sleep Apnea/CPAP/BIPAP Additional Past Medical History / Comment(s): rheumatoid arthritis, 2 pulmonary embolisms right lung and 1 pulmonary embolism L lung, cataracts bilaterally and watery eyes bilaterally, pt states 100 pound unexplained wt gain about 18 months ago, obstructive sleep apnea with CPAP. History of Any Multi-Drug Resistant Organisms: None Reported Past Surgical History: Back Surgery, Heart Catheterization, Tonsillectomy Additional Past Surgical History / Comment(s): 2012 cardiac cath with mild CAD, cervical fusion (ACDF), colonoscopy 1-1/2 years ago-normal. Past Anesthesia/Blood Transfusion Reactions: No Reported Reaction Past Psychological History: No Psychological Hx Reported Smoking Status: Current every day smoker Past Alcohol Use History: None Reported Past Drug Use History: None Reported - Past Family History Mother Family Medical History: Cancer, Congestive Heart Failure (CHF) Additional Family Medical History / Comment(s): breast cancer. Mother of CHF at the age of 84 yrs. Father Family Medical History: Cancer, COPD, CVA/TIA Additional Family Medical History / Comment(s): lung cancer. Father of copd at the age of 79yrs. Sister(s) Family Medical History: Deep Vein Thrombosis (DVT) Additional Family Medical History / Comment(s): Patient has one sister that at age 55 from a brain aneurysm. He has 3 other sisters with no major medical problems. Brother(s) Additional Family Medical History / Comment(s): Patient has 3 brothers and one has history of coronary artery disease status post CABG and lap band surgery. Son(s) Additional Family Medical History / Comment(s): Patient has one son with history of drug and alcohol addiction. General Exam - General Exam Comments Initial Comments: 56 year old obese male, no distress. Limitations: no limitations General appearance: alert, in no apparent distress Head exam: Present: atraumatic, normocephalic, normal inspection Eye exam: Present: normal appearance, PERRL, EOMI. Absent: scleral icterus, conjunctival injection, periorbital swelling ENT exam: Present: normal exam, mucous membranes moist Neck exam: Present: normal inspection. Absent: tenderness, meningismus, lymphadenopathy Respiratory exam: Present: normal lung sounds bilaterally. Absent: respiratory distress, wheezes, rales, rhonchi, stridor Cardiovascular Exam: Present: regular rate, normal rhythm, normal heart sounds. Absent: systolic murmur, diastolic murmur, rubs, gallop, clicks GI/Abdominal exam: Present: soft, normal bowel sounds. Absent: distended, tenderness, guarding, rebound, rigid Extremities exam: Present: normal inspection, full ROM, normal capillary refill. Absent: tenderness, pedal edema, joint swelling, calf tenderness Back exam: Present: normal inspection, tenderness (left lumbar and gluteal pain. ), other (postiive left leg straight leg test. ) Neurological exam: Present: alert, oriented X3, CN II-XII intact Psychiatric exam: Present: normal affect, normal mood Skin exam: Present: warm, dry, intact, normal color. Absent: rash Course Vital Signs 04/18/17 04/19/17 23:56 02:33 Temperature 98.5 F 97 F L Pulse Rate 110 H 100 Respiratory 20 18 Rate Blood Pressure 152/86 136/87 O2 Sat by Pulse 98 97 Oximetry Medical Decision Making - Medical Decision Making This is a 56 year old male with CC of left leg pain and lower back pain for one week. Patient reports he has lumbar back surgery a few weeks ago. Patient reports that he was taking tramadol for the pain, and it hasnt helped. Denies any recent falls to cause this pain, denies any saddle anesthesias or incontinence. Patient has lumbar and gluteal left side tenderness, patient had lumbar spine xray. Patient has full range of motion and sensation of legs. No abdominal tenderness. Patient given pain shot, and is feeling better. Patient xray shows no complicated or acute process. Discussed patient will be discharged with pain medication and muscle relaxer. Discussed returning to ED if any alarming signs or symptoms occur. - Radiology Data Radiology results: report reviewed Lumbar spine xray shows no acute fracture or dislocation. Disposition Clinical Impression: Left sided sciatica Disposition: HOME SELF-CARE Condition: Good Instructions: Sciatica (ED), Acute Low Back Pain (ED) Additional Instructions: Patient advised to follow-up with your primary care provider back specialist tomorrow. Take the medications as prescribed. Return to emergency department if any alarming signs or symptoms occur. Prescriptions: Dexamethasone 0.75 mg PO DAILY #12 tab Diazepam [Valium] 5 mg PO BID #10 tab Referrals: Amador Culver DO [Primary Care Provider] - 1-2 days Time of Disposition: 02:01
[2017-04-19 02:35] VITALS: BP 136/87; PULSE 100; RESP 18; TEMP 97
== END 2017-04-19 02:35 | disposition home or self-care (01) ==
LOC: EC 23:52
DX: M54.42 Lumbago with sciatica, left side (principal); I25.10 Atherosclerotic heart disease of native coronary artery without angina pectoris; I50.9 Heart failure, unspecified; J44.9 Chronic obstructive pulmonary disease, unspecified; M06.9 Rheumatoid arthritis, unspecified; I10 Essential (primary) hypertension; F17.200 Nicotine dependence, unspecified, uncomplicated; Z79.82 Long term (current) use of aspirin; Z79.51 Long term (current) use of inhaled steroids; Z79.899 Other long term (current) drug therapy; Z95.818 Presence of other cardiac implants and grafts; Z98.890 Other specified postprocedural states
CPT/HCPCS: 72100; 99283; 96372 ×2; J2270; J1885

== ENCOUNTER → 2017-05-03 | Outpatient (CLI) | payer OTHER ==
--- NOTE | 2017-05-03 15:53 | CT ---
EXAMINATION TYPE: CT brain wo con DATE OF EXAM: 05/03/2017 COMPARISON: NONE INDICATION: Memory loss and JACOBSEN x6 months. DLP: 1123 mGycm, Automated exposure control for dose reduction was used. CONTRAST: None CT of the brain is performed utilizing 3 mm thick sections through the posterior fossa and 3 mm thick sections through the remaining calvarium. Study is performed within 24 hours of arrival to the hosp [facility]. No abnormal hyperdensity is present to suggest an acute intracranial hemorrhage. No mass lesion is evident. No acute infarcts are evident. Ventricles and sulci are appropriate for the patient age. Paranasal sinuses and mastoid air cells within the [id number] are clear. IMPRESSIONS: 1. Normal CT Brain
--- NOTE | 2017-05-04 14:47 | US ---
EXAMINATION TYPE: US carotid duplex BILAT DATE OF EXAM: 05/03/2017 COMPARISON: NONE CLINICAL HISTORY: R51 Headache, R41.3 Amnesia. Headaches EXAM MEASUREMENTS: RIGHT: Peak Systolic Velocity (PSV) cm/sec ----- Right CCA: 68.8 ----- Right ICA: 77.5 ----- Right ECA: 105.2 ICA/CCA ratio: 1.1 RIGHT: End Diastole cm/sec ----- Right CCA: 20.4 ----- Right ICA: 35.6 ----- Right ECA: 27.0 LEFT: Peak Systolic Velocity (PSV) cm/sec ----- Left CCA: 95.4 ----- Left ICA: 98.5 ----- Left ECA: 72.5 ICA/CCA ratio: 1.0 LEFT: End Diastole cm/sec ----- Left CCA: 31.4 ----- Left ICA: 42.1 ----- Left ECA: 13.1 VERTEBRALS (direction of flow): Right Vertebral: Antegrade Left Vertebral: Antegrade Rhythm: Normal No elevated velocities, no significant stenosis. IMPRESSION: No significant flow-limiting stenosis. Criteria for Assigning % of Stenosis / Diameter reduction (Estimation based on the indirect measurements of the internal carotid artery velocities (ICA PSV). 1. Normal (no stenosis)=ICA PSV < 125 cm/s: ratio < 2.0: ICA EDV<40 cm/s. 2. Less than 50% stenosis=ICA PSV < 125 cm/s: ratio < 2.0: ICA EDV<40 cm/s. 3. 50 to 69% stenosis=ICA PSV of 125 to 230 cm/s: ration 2.0 ? 4.0: ICA EDV 40-100 cm/s. 4. Greater than 70% stenosis to near occlusion= ICA PSV > 230 cm/s: ratio > 4.0: ICA EDV > 100 cm/s. 5. Near occlusion= ICA PSV velocities may be low or undetectable: variable ratio and ICA EDV. 6. Total occlusion=unable to detect flow.
== END | disposition home or self-care (01) ==
LOC: RADCTMAIN 15:33
PROVIDERS: ATTEND Family Medicine
DX: R41.3 Other amnesia (principal); R51 Headache
CPT/HCPCS: 70450; 93880

== ENCOUNTER 2017-09-01 18:09 | Inpatient (IN) | payer OTHER ==
[2017-09-01] MEDS ORDERED: MAGNESIUM SULFATE-D5W PMX 1 GM in DEXTROSE/WATER 1 100ML.BAG IVPB STA (18:30)
[2017-09-01] MEDS ORDERED: methylPREDNISolone SOD SUCCI 125 MG/2 ML VIAL IV STA (18:30)
[2017-09-01] MEDS ORDERED: IPRATROPIUM-ALBUTEROL 3 ML NEB INHALATION STA ×2 (18:30→22:18)
[2017-09-01] MEDS ORDERED: SODIUM CHLORIDE 0.9% 1,000 ML IV STA (18:30)
--- NOTE | 2017-09-01 18:37 | ED ---
SOB HPI - General Chief Complaint: Shortness of Breath Stated Complaint: SOB Time Seen by Provider: 09/01/17 18:22 Source: patient, RN notes reviewed, old records reviewed Mode of arrival: ambulatory Limitations: no limitations - History of Present Illness Initial Comments: This is a 56-year-old male history of COPD and a recent diagnoses of pulmonary emboli including saddle embolus who states she's had shortness of breath for the past 2 days with a cough. He had a cough with tannish colored phlegm today he's unable clear any phlegm out he has some chest tightness exertional dyspnea no overt fevers chills or sweats. He is on blood thinners. MD Complaint: shortness of breath, cough - Related Data Home Medications Medication Instructions Recorded Confirmed Bumetanide [BUMEX] 2 mg PO BID 08/02/16 09/01/17 Potassium Chloride ER [K-Dur 20] 20 meq PO BID 08/02/16 09/01/17 Tofacitinib Citrate [Xeljanz] 5 mg PO BID 08/02/16 09/01/17 Albuterol Inhaler [Ventolin Hfa 2 puff INHALATION RT-Q4H PRN 06/24/17 09/01/17 Inhaler] Gabapentin 600 mg PO TID 06/24/17 09/01/17 Ipratropium [place] [Atrovent Hfa] 2 puff INHALATION RT-BID 06/24/17 09/01/17 Methocarbamol [Robaxin-750] 750 mg PO TID 06/24/17 09/01/17 oxyCODONE HCL/ACETAMINOPHEN 1 tab PO Q6HR PRN 06/24/17 09/01/17 [Percocet 10-325 mg] traMADol HCL [Ultram] 50 mg PO TID PRN 06/24/17 09/01/17 Calcium Carbonate/Vitamin D3 1 tab PO DAILY 07/27/17 09/01/17 [Calcium 600-Vit D3 400 Caplet] Docusate [Colace] 100 mg PO BID 07/27/17 09/01/17 Liver Formula 1 - 2 tab PO BID 07/27/17 09/01/17 Albuterol Nebulized [Ventolin 2.5 mg INHALATION Q6H PRN 09/01/17 09/01/17 Nebulized] Ngoc-Yme 2 cap PO DAILY 09/01/17 09/01/17 Lung Formula 2 tab PO BID 09/01/17 09/01/17 Magnesium Gluconate [Magonate] 1,000 mg PO DAILY 09/01/17 09/01/17 Metoprolol Succinate (ER) [Toprol 50 mg PO DAILY 09/01/17 09/01/17 Xl] Zinc,Mag Plus 1 tab PO DAILY 09/01/17 09/01/17 buPROPion HCL [Wellbutrin SR] 150 mg PO BID 09/01/17 09/01/17 diphenhydrAMINE [Benadryl] 50 mg PO BID PRN 09/01/17 09/01/17 Previous Rx's Medication Instructions Recorded Nitroglycerin Sl Tabs [Nitrostat] 0.4 mg SUBLINGUAL Q5M PRN #50 12/20/16 Allergies Allergy/AdvReac Type Severity Reaction Status Date / Time hydrocodone [From [place]] Allergy Rash/Hives Verified 09/01/17 18:43 Review of Systems ROS Statement: Those systems with pertinent positive or pertinent negative responses have been documented in the HPI. ROS Other: All systems not noted in ROS Statement are negative. Past Medical History Past Medical History: Coronary Artery Disease (CAD), Heart Failure, COPD, Hyperlipidemia, Hypertension, Pulmonary Embolus (PE), Rheumatoid Arthritis (RA) , Sleep Apnea/CPAP/BIPAP Additional Past Medical History / Comment(s): rheumatoid arthritis, 2 pulmonary embolisms right lung and 1 pulmonary embolism L lung, cataracts bilaterally and watery eyes bilaterally, pt states 100 pound unexplained wt gain about 18 months ago but since has been maintaing, obstructive sleep apnea with CPAP.chronic back pain "sciatic nerve damage" History of Any Multi-Drug Resistant Organisms: None Reported Past Surgical History: Back Surgery, Heart Catheterization, Tonsillectomy Additional Past Surgical History / Comment(s): 2013 cardiac cath with mild CAD, cervical fusion (ACDF),egd, colonoscopy 1-1/2 years ago-normal.and one on had polyps removed(benign).he had 2 lumbar surgeries 03/2017 and 05/08/2017 at [facility] by Dr.Khalil Castillo. Past Anesthesia/Blood Transfusion Reactions: No Reported Reaction Past Psychological History: No Psychological Hx Reported Smoking Status: Current every day smoker Past Alcohol Use History: None Reported Past Drug Use History: None Reported - Past Family History Mother Family Medical History: Cancer, Congestive Heart Failure (CHF) Additional Family Medical History / Comment(s): breast cancer. Mother of CHF at the age of 84 yrs. Father Family Medical History: Cancer, COPD, CVA/TIA Additional Family Medical History / Comment(s): lung cancer. Father of copd at the age of 79yrs. Sister(s) Family Medical History: Deep Vein Thrombosis (DVT) Additional Family Medical History / Comment(s): Patient has one sister that at age 55 from a brain aneurysm. He has 3 other sisters with no major medical problems. Brother(s) Additional Family Medical History / Comment(s): Patient has 3 brothers and one has history of coronary artery disease status post CABG and lap band surgery. Son(s) Additional Family Medical History / Comment(s): Patient has one son with history of drug and alcohol addiction. General Exam - General Exam Comments Initial Comments: This is a well-developed well-nourished awake alert oriented 3 male Limitations: no limitations General appearance: alert, anxious, in distress Head exam: Present: atraumatic, normocephalic, normal inspection Eye exam: Present: normal appearance, PERRL, EOMI. Absent: scleral icterus, conjunctival injection, periorbital swelling ENT exam: Present: normal exam, mucous membranes moist Neck exam: Present: normal inspection. Absent: tenderness, meningismus, lymphadenopathy Respiratory exam: Present: decreased breath sounds. Absent: respiratory distress, wheezes, rales, rhonchi, stridor Cardiovascular Exam: Present: normal rhythm, tachycardia, normal heart sounds. Absent: systolic murmur, diastolic murmur, rubs, gallop, clicks GI/Abdominal exam: Present: soft, normal bowel sounds. Absent: distended, tenderness, guarding, rebound, rigid Extremities exam: Present: normal inspection, full ROM, normal capillary refill. Absent: tenderness, pedal edema, joint swelling, calf tenderness Back exam: Present: normal inspection Neurological exam: Present: alert, oriented X3, CN II-XII intact Psychiatric exam: Present: normal affect, normal mood Skin exam: Present: warm, dry, intact, normal color. Absent: rash Course Vital Signs 09/01/17 09/01/17 09/01/17 18:11 18:48 18:55 Temperature 97.6 F Pulse Rate 117 H 82 84 Respiratory 26 H 18 18 Rate Blood Pressure 137/106 O2 Sat by Pulse 94 L Oximetry 09/01/17 09/01/17 09/01/17 19:08 20:31 21:40 Temperature 97.7 F Pulse Rate 112 H 106 H 91 Respiratory 19 17 18 Rate Blood Pressure 140/84 159/90 135/75 O2 Sat by Pulse 94 L 93 L 95 Oximetry Medical Decision Making - Medical Decision Making Patient will be admitted. He still dyspneic does feel somewhat better after DuoNeb treatment but still dyspneic with diminished breath sounds some wheezing noted. I did discuss case with him and with Dr. Miles. Patient has seen Dr. Shore in the past from pulmonary medicine - Lab Data Result diagrams: 09/01/17 18:30 09/01/17 18:30 Lab Results 09/01/17 09/01/17 09/01/17 Range/Units 18:30 18:30 18:30 WBC 5.7 (3.8-10.6) k/uL RBC 5.88 (4.30-5.90) m/uL Hgb 14.7 (13.0-17.5) gm/dL Hct 48.4 (39.0-53.0) % MCV 82.3 (80.0-100.0) fL MCH 25.0 (25.0-35.0) pg MCHC 30.4 L (31.0-37.0) g/dL RDW 18.8 H (11.5-15.5) % Plt Count 228 (150-450) k/uL Neutrophils % 64 % Lymphocytes % 24 % Monocytes % 9 % Eosinophils % 0 % Basophils % 1 % Neutrophils # 3.7 (1.3-7.7) k/uL Lymphocytes # 1.4 (1.0-4.8) k/uL Monocytes # 0.5 (0-1.0) k/uL Eosinophils # 0.0 (0-0.7) k/uL Basophils # 0.0 (0-0.2) k/uL Hypochromasia Moderate Anisocytosis Slight Microcytosis Slight PT (9.0-12.0) sec INR (<1.2) APTT (22.0-30.0) sec Sodium 143 (137-145) mmol/L Potassium 4.1 (3.5-5.1) mmol/L Chloride 104 (98-107) mmol/L Carbon Dioxide 25 (22-30) mmol/L Anion Gap 14 mmol/L BUN 27 H (9-20) mg/dL Creatinine 0.90 (0.66-1.25) mg/dL Est GFR (MDRD) Af Amer >60 (>60 ml/min/1.73 sqM) Est GFR (MDRD) Non-Af >60 (>60 ml/min/1.73 sqM) Glucose 176 H (74-99) mg/dL Calcium 9.2 (8.4-10.2) mg/dL Magnesium 2.1 (1.6-2.3) mg/dL Total Bilirubin 0.4 (0.2-1.3) mg/dL AST 31 (17-59) U/L ALT 31 (21-72) U/L Alkaline Phosphatase 99 (38-126) U/L Total Creatine Kinase 105 (55-170) U/L CK-MB (CK-2) 1.2 (0.0-2.4) ng/mL CK-MB (CK-2) Rel Index 1.1 Troponin I <0.012 (0.000-0.034) ng/mL NT-Pro-B Natriuret Pep pg/mL Total Protein 7.7 (6.3-8.2) g/dL Albumin 4.1 (3.5-5.0) g/dL 09/01/17 09/01/17 Range/Units 18:30 18:30 WBC (3.8-10.6) k/uL RBC (4.30-5.90) m/uL Hgb (13.0-17.5) gm/dL Hct (39.0-53.0) % MCV (80.0-100.0) fL MCH (25.0-35.0) pg MCHC (31.0-37.0) g/dL RDW (11.5-15.5) % Plt Count (150-450) k/uL Neutrophils % % Lymphocytes % % Monocytes % % Eosinophils % % Basophils % % Neutrophils # (1.3-7.7) k/uL Lymphocytes # (1.0-4.8) k/uL Monocytes # (0-1.0) k/uL Eosinophils # (0-0.7) k/uL Basophils # (0-0.2) k/uL Hypochromasia Anisocytosis Microcytosis PT 10.7 (9.0-12.0) sec INR 1.1 (<1.2) APTT 26.4 (22.0-30.0) sec Sodium (137-145) mmol/L Potassium (3.5-5.1) mmol/L Chloride (98-107) mmol/L Carbon Dioxide (22-30) mmol/L Anion Gap mmol/L BUN (9-20) mg/dL Creatinine (0.66-1.25) mg/dL Est GFR (MDRD) Af Amer (>60 ml/min/1.73 sqM) Est GFR (MDRD) Non-Af (>60 ml/min/1.73 sqM) Glucose (74-99) mg/dL Calcium (8.4-10.2) mg/dL Magnesium (1.6-2.3) mg/dL Total Bilirubin (0.2-1.3) mg/dL AST (17-59) U/L ALT (21-72) U/L Alkaline Phosphatase (38-126) U/L Total Creatine Kinase (55-170) U/L CK-MB (CK-2) (0.0-2.4) ng/mL CK-MB (CK-2) Rel Index Troponin I (0.000-0.034) ng/mL NT-Pro-B Natriuret Pep 143 pg/mL Total Protein (6.3-8.2) g/dL Albumin (3.5-5.0) g/dL - EKG Data -: EKG Interpreted by Ia EKG shows normal: sinus rhythm (Sinus tachycardia rate 110. Interval 146 QRS duration 88 daily since QTC 346/[address] configuration) - Radiology Data Radiology results: report reviewed (I did review the imaging and reports no acute findings.), image reviewed Disposition Clinical Impression: Acute exacerbation of chronic obstructive airways disease Disposition: ADMITTED IP TO THIS [facility] Condition: Stable Referrals: Amador Culver DO [Primary Care Provider] - 1-2 days
[2017-09-01 19:31] LABS: Anisocytosis Slight; Basophils % (A) 1 %; Eosinophils % (A) 0 %; HCT 48.4 % (39.0-53.0); HGB 14.7 gm/dL (13.0-17.5); Hypochromasia Moderate; Lymphocytes # (A) 1.4 k/uL (1.0-4.8); Lymphocytes % (A) 24 %; MCHC 30.4 g/dL (31.0-37.0); MCV 82.3 fL (80.0-100.0); Microcytosis Slight; Monocytes # (A) 0.5 k/uL (0-1.0); Monocytes % (A) 9 %; Neutrophils # (A) 3.7 k/uL (1.3-7.7); Neutrophils % (A) 64 %; Platelet Count 228 k/uL (150-450); RBC 5.88 m/uL (4.30-5.90); RDW 18.8 % (11.5-15.5); WBC 5.7 k/uL (3.8-10.6)
--- NOTE | 2017-09-01 19:34 | XR ---
EXAMINATION TYPE: XR chest 2V DATE OF EXAM: 09/01/2017 COMPARISON: 07/26/2017 HISTORY: Difficulty breathing TECHNIQUE: Frontal and lateral views of the chest are obtained. FINDINGS: Mild interstitial thickening is seen on the lateral image, similar to the prior exam of . There is no focal air space opacity, pleural effusion, or pneumothorax seen. The cardiac si lhouette size is mildly enlarged. The osseous structures are intact. Mild degenerative changes of the acromio clavicular joints are noted. IMPRESSION: 1. No focal consolidation to suggest pneumonia. 2. Mild interstitial thickening, suggesting mild fluid overload.
[2017-09-01 19:42] LABS: ALT 31 U/L (21-72); AST 31 U/L (17-59); Albumin 4.1 g/dL (3.5-5.0); Alkaline Phosphatase 99 U/L (38-126); Anion Gap 14 mmol/L; Blood Urea Nitrogen 27 mg/dL (9-20); Calcium 9.2 mg/dL (8.4-10.2); Carbon Dioxide 25 mmol/L (22-30); Chloride 104 mmol/L (98-107); Glucose 176 mg/dL (74-99); Magnesium 2.1 mg/dL (1.6-2.3); Potassium 4.1 mmol/L (3.5-5.1); Sodium 143 mmol/L (137-145); Total Bilirubin 0.4 mg/dL (0.2-1.3); Total Protein 7.7 g/dL (6.3-8.2)
[2017-09-01 19:48] LABS: INR 1.1 (<1.2); Partial Thromboplastin Time 26.4 sec (22.0-30.0); Prothrombin Time 10.7 sec (9.0-12.0)
[2017-09-01 20:01] LABS: Creatine Kinase 105 U/L (55-170)
[2017-09-01 20:14] LABS: Creatine Kinase MB 1.2 ng/mL (0.0-2.4); Troponin I <0.012 ng/mL (0.000-0.034)
[2017-09-01] MEDS ORDERED: oxyCODONE-APAP 10-325MG 1 EACH TAB PO STA (22:19)
[2017-09-01] MEDS ORDERED: diphenhydrAMINE 25 MG CAP PO PRN (22:22)
[2017-09-01] MEDS ORDERED: NITROGLYCERIN SL TABS 0.4 MG TAB SUBLINGUAL PRN (22:22)
[2017-09-01] MEDS ORDERED: traMADol 50 MG TAB PO PRN (22:22)
[2017-09-01] MEDS: SODIUM CHLORIDE 0.9% 1,000 ML IV SCH (22:38)
[2017-09-01] MEDS ORDERED: IPRATROPIUM-ALBUTEROL 3 ML NEB INHALATION PRN (23:31)
[2017-09-02] MEDS ORDERED: IPRATROPIUM-ALBUTEROL 3 ML NEB INHALATION SCH
[2017-09-02 00:34] VITALS: BMI 36.7
[2017-09-02] MEDS: SODIUM CHLORIDE 0.9% 1,000 ML IV SCH (00:40)
[2017-09-02] MEDS: NICOTINE 14MG/24HR PATCH TRANSDERM SCH ×2 (00:40→21:23)
[2017-09-02] MEDS: methylPREDNISolone SOD SUCCI 125 MG/2 ML VIAL IV SCH ×5 (00:40→23:26)
[2017-09-02] MEDS: oxyCODONE-APAP 10-325MG 1 EACH TAB PO PRN ×3 (06:18→17:24)
[2017-09-02] MEDS: IPRATROPIUM-ALBUTEROL 3 ML NEB INHALATION SCH ×4 (08:04→19:50)
[2017-09-02] MEDS: METHOCARBAMOL 750 MG TAB PO SCH ×3 (08:47→21:22)
[2017-09-02] MEDS: GABAPENTIN 300 MG CAP PO SCH ×3 (08:47→21:22)
[2017-09-02] MEDS: POTASSIUM CHLORIDE ER 20 MEQ TAB.ER PO SCH ×2 (08:47→21:21)
[2017-09-02] MEDS: CALCIUM CARB-VIT D 500MG-200UN 1 EACH TAB PO SCH (08:47)
[2017-09-02] MEDS: DOCUSATE 100 MG CAP PO SCH ×2 (08:47→21:20)
[2017-09-02] MEDS: buPROPion SR 150 MG TABLET.ER PO SCH ×2 (08:47→21:20)
[2017-09-02] MEDS: METOPROLOL SUCCINATE (ER) 50 MG TAB.ER.24H PO SCH (08:48)
[2017-09-02] MEDS: BUMETANIDE 1 MG TAB PO SCH ×2 (08:48→21:19)
[2017-09-02] MEDS: [UNRECOGNIZED DRUG - OTHER] PO SCH (08:50)
[2017-09-02] MEDS: MAGNESIUM GLUCONATE PO SCH (08:50)
[2017-09-02] MEDS: TOFACITINIB CITRATE 5 MG PO SCH ×2 (10:11→21:22)
[2017-09-02] MEDS ORDERED: RX INFO: IV CONTRAST WAS GIVEN 1 EACH MISC MISCELLANE PRN (10:38)
--- NOTE | 2017-09-02 10:54 | P.CNPUL ---
History of Present Illness Consult date: 09/02/17 Reason for consult: dyspnea, cough Chief complaint: Shortness of breath History of present illness: This is a 56-year-old male who is well-known to [facility]. He presented to the emergency department complaining of shortness of breath. The patient states he hasn't felt well since he was diagnosed with pulmonary embolisms on 06/24/2017. The patient states he is taking his Xarelto daily however there is no record of prescription refills at his pharmacy. He states he did get some samples from his primary care physician. The patient states he gets very short of breath with minimal exertion. His and children have been recently diagnosed with RSV. He states he is compliant with his breathing treatments. He is very upset and angry stating that he's been short of breath and nobody has been able to help him. He has not been wearing his BiPAP because he states the pressures are too high. His sleep study is reviewed and his AHI was 93, he had desaturation down to 37%. The patient is made aware that if he does not wear his BiPAP he could and it is causing worsening heart strain as well as shortness of breath. He states he has an appointment in September to see his sleep physician. Review of Systems All systems: negative Past Medical History Past Medical History: Coronary Artery Disease (CAD), Heart Failure, COPD, Hyperlipidemia, Hypertension, Pulmonary Embolus (PE), Rheumatoid Arthritis (RA) , Sleep Apnea/CPAP/BIPAP Additional Past Medical History / Comment(s): rheumatoid arthritis, 2 pulmonary embolisms right lung and 1 pulmonary embolism L lung, cataracts bilaterally and watery eyes bilaterally, pt states 100 pound unexplained wt gain about 18 months ago but since has been maintaing, obstructive sleep apnea with CPAP.chronic back pain "sciatic nerve damage" History of Any Multi-Drug Resistant Organisms: None Reported Past Surgical History: Back Surgery, Heart Catheterization, Tonsillectomy Additional Past Surgical History / Comment(s): 2013 cardiac cath with mild CAD, cervical fusion (ACDF),egd, colonoscopy 1-1/2 years ago-normal.and one on had polyps removed(benign).he had 2 lumbar surgeries 03/2017 and 05/08/2017 at [facility] by Dr.Khalil Castillo. Past Anesthesia/Blood Transfusion Reactions: No Reported Reaction Past Psychological History: No Psychological Hx Reported Additional Psychological History / Comment(s): Pt resides with his spouse oliver and grand daughters ages 1 and 3, in a single level home that has 4 front steps. one pet dog named "whitney" He is independent. no home care services recieved. has a cpap [employer]nine. no service in past. 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 Smoking Status: Current every day smoker Past Alcohol Use History: None Reported Additional Past Alcohol Use History / Comment(s): started smoking in 1975 smokes 1ppd, Past Drug Use History: None Reported - Past Family History Mother Family Medical History: Cancer, Congestive Heart Failure (CHF) Additional Family Medical History / Comment(s): breast cancer. Mother of CHF at the age of 84 yrs. Father Family Medical History: Cancer, COPD, CVA/TIA Additional Family Medical History / Comment(s): lung cancer. Father of copd at the age of 79yrs. Sister(s) Family Medical History: Deep Vein Thrombosis (DVT) Additional Family Medical History / Comment(s): Patient has one sister that at age 55 from a brain aneurysm. He has 3 other sisters with no major medical problems. Brother(s) Additional Family Medical History / Comment(s): Patient has 3 brothers and one has history of coronary artery disease status post CABG and lap band surgery. Son(s) Additional Family Medical History / Comment(s): Patient has one son with history of drug and alcohol addiction. Medications and Allergies Home Medications Medication Instructions Recorded Confirmed Type Bumetanide [BUMEX] 2 mg PO BID 08/02/16 09/01/17 History Potassium Chloride ER [K-Dur 20] 20 meq PO BID 08/02/16 09/01/17 History Tofacitinib Citrate [Xeljanz] 5 mg PO BID 08/02/16 09/01/17 History Nitroglycerin Sl Tabs [Nitrostat] 0.4 mg SUBLINGUAL Q5M PRN #50 12/20/16 Rx Albuterol Inhaler [Ventolin Hfa 2 puff INHALATION RT-Q4H PRN 06/24/17 09/01/17 History Inhaler] Gabapentin 600 mg PO TID 06/24/17 09/01/17 History Ipratropium [place] [Atrovent Hfa] 2 puff INHALATION RT-BID 06/24/17 09/01/17 History Methocarbamol [Robaxin-750] 750 mg PO TID 06/24/17 09/01/17 History oxyCODONE HCL/ACETAMINOPHEN 1 tab PO Q6HR PRN 06/24/17 09/01/17 History [Percocet 10-325 mg] traMADol HCL [Ultram] 50 mg PO TID PRN 06/24/17 09/01/17 History Calcium Carbonate/Vitamin D3 1 tab PO DAILY 07/27/17 09/01/17 History [Calcium 600-Vit D3 400 Caplet] Docusate [Colace] 100 mg PO BID 07/27/17 09/01/17 History Liver Formula 1 - 2 tab PO BID 07/27/17 09/01/17 History Albuterol Nebulized [Ventolin 2.5 mg INHALATION Q6H PRN 09/01/17 09/01/17 History Nebulized] Ngoc-Yme 2 cap PO DAILY 09/01/17 09/01/17 History Lung Formula 2 tab PO BID 09/01/17 09/01/17 History Magnesium Gluconate [Magonate] 1,000 mg PO DAILY 09/01/17 09/01/17 History Metoprolol Succinate (ER) [Toprol 50 mg PO DAILY 09/01/17 09/01/17 History Xl] Zinc,Mag Plus 1 tab PO DAILY 09/01/17 09/01/17 History buPROPion HCL [Wellbutrin SR] 150 mg PO BID 09/01/17 09/01/17 History diphenhydrAMINE [Benadryl] 50 mg PO BID PRN 09/01/17 09/01/17 History Allergies Allergy/AdvReac Type Severity Reaction Status Date / Time hydrocodone [From [place]] Allergy Rash/Hives Verified 09/01/17 18:43 Physical Exam Osteopathic Statement: *. No significant issues noted on an osteopathic structural exam other than those noted in the History and Physical/Consult. Vitals: Vital Signs Temp Pulse Pulse Resp BP BP Pulse Ox 09/02/17 08:14 98 09/02/17 08:06 98 09/02/17 08:04 98 18 09/02/17 07:00 98.0 F 97 16 147/79 95 09/02/17 05:39 67 09/02/17 05:26 67 09/02/17 02:51 97.4 F L 86 16 122/62 93 L 09/01/17 23:34 98.0 F 90 19 141/82 94 L 09/01/17 22:38 82 18 09/01/17 22:32 80 18 09/01/17 21:40 91 18 135/75 95 09/01/17 20:31 106 H 17 159/90 93 L 09/01/17 19:08 97.7 F 112 H 19 140/84 94 L 09/01/17 18:55 84 18 09/01/17 18:48 82 18 09/01/17 18:11 97.6 F 117 H 26 H 137/106 94 L Intake and Output 09/01/17 09/02/17 09/02/17 22:59 06:59 14:59 Intake Total 590 240 Balance 590 240 Intake: Oral 590 240 Other: Voiding Method Toilet Weight 117.027 kg 116.12 kg Gen.: Patient is alert and oriented 3, no acute distress, angry and anxious Cardiovascular: Regular rate and rhythm, S1/S2 Lungs: Clear to auscultation bilaterally no wheezes rales or rhonchi, good air movement Abdomen: Soft nontender nondistended positive bowel sounds Extremities: No edema Results - Laboratory Findings CBC and BMP: 09/01/17 18:30 09/01/17 18:30 PT/INR, D-dimer PT 10.7 sec (9.0-12.0) 09/01/17 18:30 INR 1.1 (<1.2) 09/01/17 18:30 Abnormal lab findings: Abnormal Labs 09/01/17 09/01/17 18:30 18:30 MCHC 30.4 L RDW 18.8 H BUN 27 H Glucose 176 H - Diagnostic Findings Chest x-ray: report reviewed, image reviewed Assessment and Plan Assessment: Acute exacerbation of COPD Dyspnea on exertion History of pulmonary embolism, status post clot extraction History of right lower extremity DVT Severe obstructive sleep apnea with nocturnal hypoxemia, patient is noncompliant with BiPAP Scattered mild pulmonary fibrosis History of congestive heart failure Mild pulmonary hypertension, RVSP 47 mmHg Hypertension Rheumatoid arthritis Morbid obesity Tobacco abuse O2 to maintain saturation greater than or equal to 90% Continue Xarelto CTA of the chest Limited echocardiogram for pulmonary hypertension Duo tuba [facility] Pulmicort Smoking cessation Patient is made aware that he needs to wear his home BiPAP and that not doing so could result in and congestive heart failure, he states he has an appointment with the sleep center in September Will order Bipap Qhs RSV swab Accu-Cheks and insulin sliding scale Solu-Medrol taper Singulair GI and DVT prophylaxis Thank you for this consultation we'll continue to follow along
[2017-09-02] MEDS: RIVAROXABAN 10 MG TAB PO SCH (10:58)
[2017-09-02 11:17] LABS: Glucose,Whole Blood 171 mg/dL (75-99)
[2017-09-02] MEDS: INSULIN ASPART 100 UNIT/ML 1 ML 10 ML VIAL SQ SCH ×3 (13:07→21:20)
--- NOTE | 2017-09-02 13:18 | CT ---
EXAMINATION TYPE: CT angio chest DATE OF EXAM: 09/02/2017 COMPARISON: CTA chest July 26, 2017 HISTORY: Cough, recently diagnosed pulmonary embolism CT DLP: 881 mGycm. Automated Exposure Control for Dose Reduction was Utilized. CONTRAST: CTA scan of the thorax is performed with IV Contrast, patient injected with 100 mL of Omnipaque 350, pulmonary embolism protocol. MIP Images are created on CT scanner and reviewed. FINDINGS: LUNGS: Moderate underlying emphysematous change is redemonstrated. Dependent atelectasis is seen in b oth lower lobes less prominent than prior study. No new suspicious consolidation is identified. No pl eural effusion or pneumothorax is seen bilaterally. Mild central peribronchial thickening is redemons trated. MEDIASTINUM: There is poor bolus with equal contrast seen in right and left heart systems. There is i nterval resolution of right lower lobe partial occlusive thrombus. No new emboli are clearly seen. No cardiomegaly or pericardial effusion is seen. Prominent thoracic lymph nodes are redemonstrated, for reference anterior mediastinal lymph node measures 2.4 x 1.2 cm axial image 60 unchanged from prior study. This is noted unchanged back to August 03, 2016 study. OTHER: Small degree of bilateral gynecomastia is redemonstrated. Hypodense 1 cm lesion anterior right hepatic lobe axial image 122 is stable and favored benign. Moderate fat replaced atrophy of pancreas is noted. There is new mild height loss or compression fracture superior T12 endplate. IMPRESSION: 1. Interval resolution of right-sided embolism. Suboptimal study without new embolism identified. 2. Moderate underlying emphysematous change without suspicious acute pulmonary process. 3. Note is made of new mild compression type fracture superior T12 endplate. Correlate clinically.
--- NOTE | 2017-09-02 14:30 | P.HPIM ---
History of Present Illness H&P Date: 09/02/17 Chief Complaint: shortness of breath This is a 56-year-old male one of Dr. Culver with a previous medical history significant for rheumatoid arthritis under the care of Dr. Egan, history of hypertension and hypertensive cardiovascular disease, chronic tobacco use and dependence, COPD, hyperlipidemia, prior history of pulmonary emboli about 4 years ago and saddle pulmonary embolism in June 2017, obstructive sleep apnea on CPAP under care of Dr. TOMMIE Shore, CAD post left heart catheterization that was done about a year ago that showed 40% of coronary artery disease without any significant intervention, status post lumbar spine underwent spine surgery back in May 08, 2017. patient is having difficulty tolerating his CPAP at home as he states about 15-20 minutes after wearing it the pressure goes too high and blows away from his face. He does have a follow-up appointment with the sleep physician in September. He has recently lost 18 pounds Patient quit smoking in June but has an occasional cigarette only. He has had a stress test in July which she states was normal. Patient states his premature daughter is currently being [facility] at [facility] for RSV and infection at her feeding tube. He complains of shortness of breath with chest pain, fever, chills, sweats. He states it started on Saturday. chest x-ray shows no focal consolidation to suggest pneumonia. Mild interstitial thickening suggesting mild fluid overload.he was afebrile with initially elevated blood pressure of 137/106, tachycardia, pulse ox is 94% on room air.influenza testing was negative. He was given DuoNeb treatment but continued to have dyspnea and wheezing. Patient was admitted to the Medr floor with COPD exacerbation and started on Solu-Medrol, DuoNeb treatments and consult with Dr. TOMMIE Shore/Dr. Bernstein. CT of the chest shows interval resolution of right-sided embolism. Suboptimal study without new embolism identified. Moderate underlying emphysema change without suspicious acute pulmonary process. Mild compression type fracture in the superior T12 endplate. Review of Systems All systems: negative Constitutional: Reports chills, Reports fatigue, Reports fever, Reports malaise , Reports sweats, Reports weakness Eyes: denies blurred vision, denies pain Ears, nose, mouth and throat: Denies headache, Denies sore throat Cardiovascular: Reports chest pain, Reports decreased exercise tolerance, Reports dyspnea on exertion, Reports shortness of breath, Denies edema, Denies leg edema, Denies lightheadedness, Denies syncope Respiratory: Reports cough, Reports cough with sputum, Reports dyspnea, Reports sleep apnea, Reports wheezing, Denies excessive sputum, Denies hemoptysis, Denies home oxygen Gastrointestinal: Denies abdominal pain, Denies diarrhea, Denies nausea, Denies vomiting Genitourinary: Denies dysuria Musculoskeletal: Denies myalgias Integumentary: Denies pruritus, Denies rash Neurological: Denies numbness, Denies weakness Psychiatric: Denies anxiety, Denies depression Endocrine: Denies fatigue, Denies weight change Past Medical History Past Medical History: Coronary Artery Disease (CAD), Heart Failure, COPD, Hyperlipidemia, Hypertension, Pulmonary Embolus (PE), Rheumatoid Arthritis (RA) , Sleep Apnea/CPAP/BIPAP Additional Past Medical History / Comment(s): rheumatoid arthritis, 2 pulmonary embolisms right lung and 1 pulmonary embolism L lung, cataracts bilaterally and watery eyes bilaterally, pt states 100 pound unexplained wt gain about 18 months ago but since has been maintaing, obstructive sleep apnea with CPAP.chronic back pain "sciatic nerve damage" History of Any Multi-Drug Resistant Organisms: None Reported Past Surgical History: Back Surgery, Heart Catheterization, Tonsillectomy Additional Past Surgical History / Comment(s): 2013 cardiac cath with mild CAD, cervical fusion (ACDF),egd, colonoscopy 1-1/2 years ago-normal.and one on had polyps removed(benign).he had 2 lumbar surgeries 03/2017 and 05/08/2017 at [facility] by Dr.Khalil Castillo. Past Anesthesia/Blood Transfusion Reactions: No Reported Reaction Past Psychological History: No Psychological Hx Reported Additional Psychological History / Comment(s): Pt resides with his spouse oliver and grand daughters ages 1 and 3, in a single level home that has 4 front steps. one pet dog named "whitney" He is independent. no home care services recieved. has a cpap [employer]. no service in past. 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 Smoking Status: Current every day smoker Past Alcohol Use History: None Reported Additional Past Alcohol Use History / Comment(s): started smoking in 1975 smokes 1ppd, and quit smoking in June 2017 but occasionally has a single cigarette. Past Drug Use History: None Reported - Past Family History Mother Family Medical History: Cancer, Congestive Heart Failure (CHF) Additional Family Medical History / Comment(s): breast cancer. Mother of CHF at the age of 84 yrs. Father Family Medical History: Cancer, COPD, CVA/TIA Additional Family Medical History / Comment(s): lung cancer. Father of copd at the age of 79yrs. Sister(s) Family Medical History: Deep Vein Thrombosis (DVT) Additional Family Medical History / Comment(s): Patient has one sister that at age 55 from a brain aneurysm. He has 3 other sisters with no major medical problems. Brother(s) Additional Family Medical History / Comment(s): Patient has 3 brothers and one has history of coronary artery disease status post CABG and lap band surgery. Son(s) Additional Family Medical History / Comment(s): Patient has one son with history of drug and alcohol addiction. Medications and Allergies Home Medications Medication Instructions Recorded Confirmed Type Bumetanide [BUMEX] 2 mg PO BID 08/02/16 09/01/17 History Potassium Chloride ER [K-Dur 20] 20 meq PO BID 08/02/16 09/01/17 History Tofacitinib Citrate [Xeljanz] 5 mg PO BID 08/02/16 09/01/17 History Nitroglycerin Sl Tabs [Nitrostat] 0.4 mg SUBLINGUAL Q5M PRN #50 12/20/16 Rx Albuterol Inhaler [Ventolin Hfa 2 puff INHALATION RT-Q4H PRN 06/24/17 09/01/17 History Inhaler] Gabapentin 600 mg PO TID 06/24/17 09/01/17 History Ipratropium [place] [Atrovent Hfa] 2 puff INHALATION RT-BID 06/24/17 09/01/17 History Methocarbamol [Robaxin-750] 750 mg PO TID 06/24/17 09/01/17 History oxyCODONE HCL/ACETAMINOPHEN 1 tab PO Q6HR PRN 06/24/17 09/01/17 History [Percocet 10-325 mg] traMADol HCL [Ultram] 50 mg PO TID PRN 06/24/17 09/01/17 History Calcium Carbonate/Vitamin D3 1 tab PO DAILY 07/27/17 09/01/17 History [Calcium 600-Vit D3 400 Caplet] Docusate [Colace] 100 mg PO BID 07/27/17 09/01/17 History Liver Formula 1 - 2 tab PO BID 07/27/17 09/01/17 History Albuterol Nebulized [Ventolin 2.5 mg INHALATION Q6H PRN 09/01/17 09/01/17 History Nebulized] Ngoc-Yme 2 cap PO DAILY 09/01/17 09/01/17 History Lung Formula 2 tab PO BID 09/01/17 09/01/17 History Magnesium Gluconate [Magonate] 1,000 mg PO DAILY 09/01/17 09/01/17 History Metoprolol Succinate (ER) [Toprol 50 mg PO DAILY 09/01/17 09/01/17 History Xl] Zinc,Mag Plus 1 tab PO DAILY 09/01/17 09/01/17 History buPROPion HCL [Wellbutrin SR] 150 mg PO BID 09/01/17 09/01/17 History diphenhydrAMINE [Benadryl] 50 mg PO BID PRN 09/01/17 09/01/17 History Allergies Allergy/AdvReac Type Severity Reaction Status Date / Time hydrocodone [From [place]] Allergy Rash/Hives Verified 09/01/17 18:43 Physical Exam Vitals: Vital Signs Temp Pulse Pulse Resp BP BP Pulse Ox 09/02/17 12:55 85 18 09/02/17 08:14 98 09/02/17 08:06 98 09/02/17 08:04 98 18 09/02/17 07:00 98.0 F 97 16 147/79 95 09/02/17 05:39 67 09/02/17 05:26 67 09/02/17 02:51 97.4 F L 86 16 122/62 93 L 09/01/17 23:34 98.0 F 90 19 141/82 94 L 09/01/17 22:38 82 18 09/01/17 22:32 80 18 09/01/17 21:40 91 18 135/75 95 09/01/17 20:31 106 H 17 159/90 93 L 09/01/17 19:08 97.7 F 112 H 19 140/84 94 L 09/01/17 18:55 84 18 01/28/18 18:48 82 18 09/01/17 18:11 97.6 F 117 H 26 H 137/106 94 L Intake and Output 09/01/17 09/02/17 09/02/17 22:59 06:59 14:59 Intake Total 590 240 Output Total 600 Balance 590 -360 Intake: Oral 590 240 Output: Urine 600 Other: Voiding Method Toilet # Voids 2 Weight 117.027 kg 116.12 kg General appearance: average body habitus, mild distress - EENT Eyes: anicteric sclerae, EOMI, PERRLA, no ptosis, no scleral icterus, normal appearance ENT: hearing grossly normal, NA/AT, normal oropharynx, no thrush, no tonsillar exudates, no tonsillar swelling Ears: bilateral: normal - Neck Neck: no lymphadenopathy, normal ROM, no rigidity, no stridor, no thyromegaly Carotids: bilateral: upstroke normal Thyroid: bilateral: normal size - Respiratory Respiratory: bilateral: diminished, wheezing negative: dullness, rales, rhonchi , prolonged expiration, prolonged inspiration - Cardiovascular Rhythm: regular Heart sounds: normal: S1, S2 Abnormal Heart Sounds: systolic murmur - Gastrointestinal General gastrointestinal: normal bowel sounds, soft, no splenomegaly, no tenderness, no umbilical hernia, no ventral hernia - Integumentary Integumentary: normal, normal turgor - Neurologic Neurologic: CNII-XII intact - Musculoskeletal Musculoskeletal: strength equal bilaterally - Psychiatric Psychiatric: A&O x's 3, appropriate affect, intact judgment & insight Results CBC & Chem 7: 09/01/17 18:30 09/01/17 18:30 Labs: Abnormal Lab Results - Last 24 Hours (Table) 09/01/17 09/01/17 09/02/17 Range/Units 18:30 18:30 11:08 MCHC 30.4 L (31.0-37.0) g/dL RDW 18.8 H (11.5-15.5) % BUN 27 H (9-20) mg/dL Glucose 176 H (74-99) mg/dL POC Glucose (mg/dL) 171 H (75-99) mg/dL Thrombosis Risk Factor Assmnt - DVT/VTE Prophylaxis DVT/VTE Prophylaxis: Pharmacologic Prophylaxis ordered - Choose All That Apply Any of the Below Risk Factors Present?: Yes Each Factor Represents 1 point: Age 41-60 years, Obesity (BMI >25) Each Risk Factor Represents 3 Points: History of DVT/PE Thrombosis Risk Factor Assessment Total Risk Factor Score: 5 Thrombosis Risk Factor Assessment Level: High Risk Assessment and Plan Plan: 1. Acute COPD exacerbation. Continue DuoNeb treatments 4 times daily and every 2 hours as needed, Pulmicort 0.5 mg twice daily, Solu-Medrol 60 mg IV every 6 hours, Singulair 10 mg at bedtime. Consult with Dr. Day salcido. 2. Pulmonary infarct with recent bilateral saddle pulmonary embolism status post transferred to [facility] and thrombectomy. Continuen Xarelto. Consult with Dr. Bernstein. 3. Recent lumbar spine surgery. Stable at this point in time. continue with current pain management. 4. Rheumatoid arthritis. Patient has been on Xeljanz 5 mg orally twice every day. 5. Degenerative disc disease. Continue gabapentin 600 mg orally 3 times every day. 6. History of pulmonary embolism with recurrent saddle pulmonary embolism. Continue Xarelto. 7. Obstructive sleep apnea. Patient is unable to tolerate CPAP. He has follow -up with his sleep doctor in September. He has recently lost 18 pounds. 8. Hypertension and hypertensive cardiovascular disease. continue metipranolol. 9. DVT prophylaxis. On xarelto 10. Gastrointestinal prophylaxis. Continue with Protonix 40 mg daily. 11. Admit to inpatient. Estimate length of stay 2 midnights. 12. Patient is full code. Discharge plan: Return home Impression and plan of care have been directed as dictated by the signing physician. Oneyda Hill nurse practitioner acting as scribe for signing physician.
[2017-09-02 16:53] LABS: Glucose,Whole Blood 164 mg/dL (75-99)
[2017-09-02 16:57] LABS: Hemoglobin A1C 6.5 % (4.0-6.0)
[2017-09-02] MEDS: BUDESONIDE 0.5 MG/2 ML NEBU INHALATION SCH (19:49)
[2017-09-02 20:11] LABS: Glucose,Whole Blood 199 mg/dL (75-99)
[2017-09-02] MEDS: MONTELUKAST 10 MG TAB PO SCH (21:31)
[2017-09-03] MEDS: methylPREDNISolone SOD SUCCI 125 MG/2 ML VIAL IV SCH (05:52)
[2017-09-03] MEDS: oxyCODONE-APAP 10-325MG 1 EACH TAB PO PRN ×2 (06:11→15:18)
[2017-09-03] MEDS: IPRATROPIUM-ALBUTEROL 3 ML NEB INHALATION SCH ×4 (06:12→21:04)
[2017-09-03 07:45] LABS: Glucose,Whole Blood 167 mg/dL (75-99)
[2017-09-03] MEDS: TOFACITINIB CITRATE 5 MG PO SCH ×2 (07:52→21:03)
[2017-09-03] MEDS: [UNRECOGNIZED DRUG - OTHER] PO SCH (07:52)
[2017-09-03] MEDS: MAGNESIUM GLUCONATE PO SCH (07:52)
[2017-09-03] MEDS: POTASSIUM CHLORIDE ER 20 MEQ TAB.ER PO SCH ×2 (07:53→21:02)
[2017-09-03] MEDS: RIVAROXABAN 10 MG TAB PO SCH (07:53)
[2017-09-03] MEDS: METOPROLOL SUCCINATE (ER) 50 MG TAB.ER.24H PO SCH (07:54)
[2017-09-03] MEDS: GABAPENTIN 300 MG CAP PO SCH ×3 (07:55→21:03)
[2017-09-03] MEDS: buPROPion SR 150 MG TABLET.ER PO SCH ×2 (07:56→21:00)
[2017-09-03] MEDS: METHOCARBAMOL 750 MG TAB PO SCH ×3 (07:56→21:03)
[2017-09-03] MEDS: CALCIUM CARB-VIT D 500MG-200UN 1 EACH TAB PO SCH (07:56)
[2017-09-03] MEDS: DOCUSATE 100 MG CAP PO SCH ×2 (07:56→21:00)
[2017-09-03] MEDS: BUMETANIDE 1 MG TAB PO SCH ×2 (07:57→21:00)
[2017-09-03] MEDS: INSULIN ASPART 100 UNIT/ML 1 ML 10 ML VIAL SQ SCH ×4 (07:58→21:01)
[2017-09-03] MEDS: PANTOPRAZOLE 40 MG TABLET PO SCH (07:58)
--- NOTE | 2017-09-03 11:00 | P.PN ---
Subjective Progress Note Date: 09/03/17 History of present illness: 09/02/17- This is a 56-year-old male who is well-known to [facility]. He presented to the emergency department complaining of shortness of breath. The patient states he hasn't felt well since he was diagnosed with pulmonary embolisms on 06/24/2017. The patient states he is taking his Xarelto daily however there is no record of prescription refills at his pharmacy. He states he did get some samples from his primary care physician. The patient states he gets very short of breath with minimal exertion. His and children have been recently diagnosed with RSV. He states he is compliant with his breathing treatments. He is very upset and angry stating that he's been short of breath and nobody has been able to help him. He has not been wearing his BiPAP because he states the pressures are too high. His sleep study is reviewed and his AHI was 93, he had desaturation down to 37%. The patient is made aware that if he does not wear his BiPAP he could and it is causing worsening heart strain as well as shortness of breath. He states he has an appointment in September to see his sleep physician. Interval History- 09/03/17- patient is being seen and examined and evaluated today on rounds. He is seen sitting up in bed on 3 L of supplemental oxygen via nasal cannula. Patient states he did utilizes BiPAP last night between the hours of 10:30 PM and 2:30 AM. Patient states he has a repeat sleep study is to be completed on September 10 as he states he has lost weight since his initial appointment and feels that the pressure will be adjusted. He has been afebrile. Does have some shortness of breath with exertion and activity, as well as a nonproductive cough. His CT of the chest was reviewed and did show interval resolution of his right-sided embolism. It was a suboptimal study without new embolism identified. Had moderate underlying emphysema changes without suspicious acute ulnar process. Mild compression type fracture in the superior T12 endplate. Objective - Vital Signs Vital signs: Vital Signs Temp 98.3 F 09/03/17 07:00 Pulse 105 H 09/03/17 08:00 Resp 19 09/03/17 08:00 BP 123/88 09/03/17 07:00 Pulse Ox 94 L 09/03/17 07:00 Intake & Output 09/02/17 09/03/17 09/03/17 18:59 06:59 18:59 Intake Total 480 760 Output Total 601 1 Balance -121 760 -1 Weight 116 kg Intake: Intake, IV Titration 160 Amount Sodium Chloride 0.9% 1, 160 000 ml @ 20 mls/hr IV . Q24H [facility] Rx#:[id number] Oral 480 600 Output: Urine 601 1 Other: Voiding Method Toilet Toilet Toilet # Voids 2 2 3 - Exam Gen.: Patient is alert and oriented 3, no acute distress, angry and anxious Cardiovascular: Regular rate and rhythm, S1/S2 Lungs: Clear to auscultation bilaterally no wheezes rales or rhonchi, good air movement, bases diminished Abdomen: Soft nontender nondistended positive bowel sounds Extremities: No edema - Labs CBC & Chem 7: 09/01/17 18:30 09/01/17 18:30 Labs: Abnormal Lab Results - Last 24 Hours (Table) 09/01/17 09/02/17 09/02/17 Range/Units 18:30 11:08 16:40 POC Glucose (mg/dL) 171 H 164 H (75-99) mg/dL Hemoglobin A1c 6.5 H (4.0-6.0) % 09/02/17 09/03/17 Range/Units 20:08 07:35 POC Glucose (mg/dL) 199 H 167 H (75-99) mg/dL Hemoglobin A1c (4.0-6.0) % Microbiology - Last 24 Hours (Table) 09/01/17 18:30 Blood Culture - Preliminary Blood No Growth after 24 hours Assessment and Plan Assessment: Acute exacerbation of COPD Dyspnea on exertion History of pulmonary embolism, status post clot extraction History of right lower extremity DVT Severe obstructive sleep apnea with nocturnal hypoxemia, patient is noncompliant with BiPAP Scattered mild pulmonary fibrosis History of congestive heart failure Mild pulmonary hypertension, RVSP 47 mmHg Hypertension Rheumatoid arthritis Morbid obesity Tobacco abuse O2 to maintain saturation greater than or equal to 90% Continue Xarelto CTA of the chest, reviewed Limited echocardiogram for pulmonary hypertension Duo nebs Pulmicort Smoking cessation Patient is made aware that he needs to wear his home BiPAP and that not doing so could result in and congestive heart failure, he states he has an appointment with the sleep center in September Bipap Qhs RSV swab Accu-Cheks and insulin sliding scale Solu-Medrol taper Singulair Add mucinex and flutter valve GI and DVT prophylaxis Thank you for this consultation we'll continue to follow along I performed an examination of the patient and discussed their management with the nurse practitioner. I have reviewed the nurse practitioner's note and agree with the documented findings and plan of care.
[2017-09-03] MEDS: BUDESONIDE 0.5 MG/2 ML NEBU INHALATION SCH ×2 (11:05→21:04)
[2017-09-03 11:30] LABS: Glucose,Whole Blood 121 mg/dL (75-99)
--- NOTE | 2017-09-03 12:13 | ECHOF ---
Referral Reason:Dyspnea MEASUREMENTS -------- HEIGHT: 177.8 cm WEIGHT: 116.1 kg BP: 122/62 RVIDd: 2.8 cm (< 3.3) IVSd: 1.0 cm (0.6 - 1.1) LVIDd: 4.8 cm (3.9 - 5.3) LVPWd: 1.0 cm (0.6 - 1.1) IVSs: 1.5 cm LVIDs: 3.6 cm LVPWs: 1.7 cm RAP: 15.00 mmHg RVSP: 41.45 mmHg FINDINGS -------- Sinus rhythm. This was a technically adequate study. Limited study for assessment of pulmonary hypertension. The left ventricular size is normal. There is mild concentric left ventricular hypertrophy. Overa ll left ventricular systolic function is normal with, an EF between 55 - 60 %. The aortic valve is trileaflet and appears structurally normal. The mitral valve is normal. Trace tricuspid regurgitation present. There is mild pulmonary hypertension. The right ventricula r systolic pressure, as measured by Doppler, is 41.45mmHg. The pulmonic valve was not well visualized. The inferior vena cava is dilated with no significant inspiratory collapse which is consistent estima ayesha right atrial pressure of >20 mmHg. CONCLUSIONS -------- 1. Sinus rhythm. 2. This was a technically adequate study. 3. Limited study for assessment of pulmonary hypertension. 4. The left ventricular size is normal. 5. There is mild concentric left ventricular hypertrophy. 6. Overall left ventricular systolic function is normal with, an EF between 55 - 60 %. 7. The aortic valve is trileaflet and appears structurally normal. 8. The mitral valve is normal. 9. Trace tricuspid regurgitation present. 10. There is mild pulmonary hypertension. 11. The right ventricular systolic pressure, as measured by Doppler, is 41.45mmHg. 12. The pulmonic valve was not well visualized. 13. The inferior vena cava is dilated with no significant inspiratory collapse which is consistent es timated right atrial pressure of >20 mmHg. TELEGRAPH PRINTER MECHANIC: Rick Petersen RDCS
[2017-09-03] MEDS: guaiFENesin 600 MG TABLET.ER PO SCH ×2 (14:47→21:01)
--- NOTE | 2017-09-03 15:16 | P.PN ---
Subjective Progress Note Date: 09/03/17 This is a 56-year-old male one of Dr. Culver with a previous medical history significant for rheumatoid arthritis under the care of Dr. Egan, history of hypertension and hypertensive cardiovascular disease, chronic tobacco use and dependence, COPD, hyperlipidemia, prior history of pulmonary emboli about 4 years ago and saddle pulmonary embolism in June 2017, obstructive sleep apnea on CPAP under care of Dr. TOMMIE Shore, CAD post left heart catheterization that was done about a year ago that showed 40% of coronary artery disease without any significant intervention, status post lumbar spine underwent spine surgery back in May 08, 2017. patient is having difficulty tolerating his CPAP at home as he states about 15-20 minutes after wearing it the pressure goes too high and blows away from his face. He does have a follow-up appointment with the sleep physician in September. He has recently lost 18 pounds Patient quit smoking in June but has an occasional cigarette only. He has had a stress test in July which she states was normal. Patient states his premature daughter is currently being treated at [facility] for RSV and infection at her feeding tube. He complains of shortness of breath with chest pain, fever, chills, sweats. He states it started on Saturday. chest x-ray shows no focal consolidation to suggest pneumonia. Mild interstitial thickening suggesting mild fluid overload.he was afebrile with initially elevated blood pressure of 137/106, tachycardia, pulse ox is 94% on room air.influenza testing was negative. He was given DuoNeb treatment but continued to have dyspnea and wheezing. Patient was admitted to the [facility] floor with COPD exacerbation and started on Solu-Medrol, DuoNeb treatments and consult with Dr. TOMMIE Shore/Dr. Bernstein. CT of the chest shows interval resolution of right-sided embolism. Suboptimal study without new embolism identified. Moderate underlying emphysema change without suspicious acute pulmonary process. Mild compression type fracture in the superior T12 endplate. 09/03: Pulmonary medicine has decreased Solu-Medrol to 40 mg every 12 hours. Patient is been afebrile. CTA of the chest shows above findings. Patient denies any back pain or discomfort. He does not recall any injury or sudden pain. He does have a physician at [place] that is done his previous back surgeries but he states he will follow up with [facility]. Melatonin added for sleep. Patient states he had some shortness of breath this morning but improved after updraft and after he coughed. Anticipate discharge in the next 24-48 hours. Objective - Vital Signs Vital signs: Vital Signs Temp 98.3 F 09/03/17 07:00 Pulse 105 H 09/03/17 08:00 Resp 19 09/03/17 08:00 BP 123/88 09/03/17 07:00 Pulse Ox 94 L 09/03/17 07:00 Intake & Output 09/02/17 09/03/17 09/03/17 18:59 06:59 18:59 Intake Total 480 760 Output Total 601 1 Balance -121 760 -1 Weight 116 kg Intake: Intake, IV Titration 160 Amount Sodium Chloride 0.9% 1, 160 000 ml @ 20 mls/hr IV . Q24H [facility] Rx#:[id number] Oral 480 600 Output: Urine 601 1 Other: Voiding Method Toilet Toilet Toilet # Voids 2 2 3 - Exam General appearance: average body habitus, mild distress - EENT Eyes: anicteric sclerae, EOMI, PERRLA, no ptosis, no scleral icterus, normal appearance ENT: hearing grossly normal, NA/AT, normal oropharynx, no thrush, no tonsillar exudates, no tonsillar swelling Ears: bilateral: normal - Neck Neck: no lymphadenopathy, normal ROM, no rigidity, no stridor, no thyromegaly Carotids: bilateral: upstroke normal Thyroid: bilateral: normal size - Respiratory Respiratory: bilateral: diminished, wheezing negative: dullness, rales, rhonchi , prolonged expiration, prolonged inspiration - Cardiovascular Rhythm: regular Heart sounds: normal: S1, S2 Abnormal Heart Sounds: systolic murmur - Gastrointestinal General gastrointestinal: normal bowel sounds, soft, no splenomegaly, no tenderness, no umbilical hernia, no ventral hernia - Integumentary Integumentary: normal, normal turgor - Neurologic Neurologic: CNII-XII intact - Musculoskeletal Musculoskeletal: strength equal bilaterally - Psychiatric Psychiatric: A&O x's 3, appropriate affect, intact judgment & insight - Labs CBC & Chem 7: 09/01/17 18:30 09/01/17 18:30 Labs: Abnormal Lab Results - Last 24 Hours (Table) 09/01/17 09/02/17 09/02/17 Range/Units 18:30 11:08 16:40 POC Glucose (mg/dL) 171 H 164 H (75-99) mg/dL Hemoglobin A1c 6.5 H (4.0-6.0) % 09/02/17 09/03/17 Range/Units 20:08 07:35 POC Glucose (mg/dL) 199 H 167 H (75-99) mg/dL Hemoglobin A1c (4.0-6.0) % Microbiology - Last 24 Hours (Table) 09/01/17 18:30 Blood Culture - Preliminary Blood No Growth after 24 hours Assessment and Plan Plan: 1. Acute COPD exacerbation. Continue DuoNeb treatments 4 times daily and every 2 hours as needed, Pulmicort 0.5 mg twice daily, Solu-Medrol 40 mg IV every 12 hours, Singulair 10 mg at bedtime. Consult with Dr. Bernstein appreciated. 2. Pulmonary infarct with recent bilateral saddle pulmonary embolism status post transferred to [facility] and thrombectomy. Continuen Xarelto. Consult with Dr. Bernstein. 3. Recent lumbar spine surgery. Stable at this point in time. continue with current pain management. 4. Rheumatoid arthritis. Patient has been on Xeljanz 5 mg orally twice every day. 5. Degenerative disc disease. Continue gabapentin 600 mg orally 3 times every day. 6. History of pulmonary embolism with recurrent saddle pulmonary embolism. Continue Xarelto. 7. Obstructive sleep apnea. Patient is unable to tolerate CPAP. He has follow -up with his sleep doctor in September. He has recently lost 18 pounds. 8. Hypertension and hypertensive cardiovascular disease. continue metipranolol. 9. DVT prophylaxis. On xarelto 10. Gastrointestinal prophylaxis. Continue with Protonix 40 mg daily. 11. New finding of possible T12 compression fracture that is asymptomatic. Patient will follow-up at [facility] as needed. 12. Patient is full code. Discharge plan: Return home Impression and plan of care have been directed as dictated by the signing physician. Oneyda Hill nurse practitioner acting as scribe for signing physician.
[2017-09-03 17:20] LABS: Glucose,Whole Blood 189 mg/dL (75-99)
[2017-09-03 20:28] LABS: Glucose,Whole Blood 146 mg/dL (75-99)
[2017-09-03] MEDS ORDERED: MELATONIN 5 MG TABLET PO SCH (21:00)
[2017-09-03] MEDS: methylPREDNISolone SOD SUCCI 40 MG/ML 1 ML VIAL IV SCH (21:02)
[2017-09-03] MEDS: MONTELUKAST 10 MG TAB PO SCH (21:02)
[2017-09-04] MEDS: NICOTINE 14MG/24HR PATCH TRANSDERM SCH (00:47)
[2017-09-04 07:28] LABS: Glucose,Whole Blood 146 mg/dL (75-99)
[2017-09-04] MEDS: methylPREDNISolone SOD SUCCI 40 MG/ML 1 ML VIAL IV SCH (07:46)
[2017-09-04] MEDS: oxyCODONE-APAP 10-325MG 1 EACH TAB PO PRN ×2 (07:47→13:54)
[2017-09-04] MEDS: MAGNESIUM GLUCONATE PO SCH (07:51)
[2017-09-04] MEDS: [UNRECOGNIZED DRUG - OTHER] PO SCH (07:51)
[2017-09-04] MEDS: TOFACITINIB CITRATE 5 MG PO SCH (07:51)
[2017-09-04] MEDS: GABAPENTIN 300 MG CAP PO SCH (08:03)
[2017-09-04] MEDS: buPROPion SR 150 MG TABLET.ER PO SCH (08:03)
[2017-09-04] MEDS: BUMETANIDE 1 MG TAB PO SCH (08:05)
[2017-09-04] MEDS: METHOCARBAMOL 750 MG TAB PO SCH (08:06)
[2017-09-04] MEDS: CALCIUM CARB-VIT D 500MG-200UN 1 EACH TAB PO SCH (08:06)
[2017-09-04] MEDS: RIVAROXABAN 10 MG TAB PO SCH (08:07)
[2017-09-04] MEDS: DOCUSATE 100 MG CAP PO SCH (08:07)
[2017-09-04] MEDS: METOPROLOL SUCCINATE (ER) 50 MG TAB.ER.24H PO SCH (08:08)
[2017-09-04] MEDS: INSULIN ASPART 100 UNIT/ML 1 ML 10 ML VIAL SQ SCH ×2 (08:09→13:00)
[2017-09-04] MEDS: PANTOPRAZOLE 40 MG TABLET PO SCH (08:09)
[2017-09-04] MEDS: POTASSIUM CHLORIDE ER 20 MEQ TAB.ER PO SCH (08:09)
[2017-09-04] MEDS: guaiFENesin 600 MG TABLET.ER PO SCH (08:15)
[2017-09-04] MEDS: IPRATROPIUM-ALBUTEROL 3 ML NEB INHALATION SCH ×2 (08:33→11:27)
[2017-09-04] MEDS: BUDESONIDE 0.5 MG/2 ML NEBU INHALATION SCH (08:33)
[2017-09-04 08:55] VITALS: BP 139/76; RESP 18; TEMP 97.5
[2017-09-04 09:43] LABS: Anisocytosis Slight; Basophils % (A) 0 %; Eosinophils % (A) 0 %; HCT 46.8 % (39.0-53.0); HGB 13.8 gm/dL (13.0-17.5); Hypochromasia Moderate; Lymphocytes # (A) 1.5 k/uL (1.0-4.8); Lymphocytes % (A) 9 %; MCH 24.7 pg (25.0-35.0); MCHC 29.5 g/dL (31.0-37.0); MCV 83.6 fL (80.0-100.0); Mean Platelet Volume 8.7; Monocytes # (A) 0.6 k/uL (0-1.0); Monocytes % (A) 4 %; Neutrophils # (A) 13.8 k/uL (1.3-7.7); Neutrophils % (A) 86 %; Platelet Count 224 k/uL (150-450); RBC 5.59 m/uL (4.30-5.90); RDW 16.9 % (11.5-15.5); WBC 16.1 k/uL (3.8-10.6)
[2017-09-04 10:11] LABS: ALT 42 U/L (21-72); AST 32 U/L (17-59); Albumin 4.1 g/dL (3.5-5.0); Alkaline Phosphatase 90 U/L (38-126); Anion Gap 15 mmol/L; Blood Urea Nitrogen 35 mg/dL (9-20); Calcium 8.9 mg/dL (8.4-10.2); Carbon Dioxide 25 mmol/L (22-30); Chloride 97 mmol/L (98-107); Glucose 265 mg/dL (74-99); Potassium 4.2 mmol/L (3.5-5.1); Sodium 137 mmol/L (137-145); Total Bilirubin 0.4 mg/dL (0.2-1.3); Total Protein 7.5 g/dL (6.3-8.2)
--- NOTE | 2017-09-04 11:22 | P.PN ---
Subjective Progress Note Date: 09/04/17 Principal diagnosis: Acute exacerbation of COPD Patient seen and examined. Patient states she is feeling much better today. He states the flutter and Mucinex are really helping him expectorate his sputum. He is hoping to go home today. He denies fevers and chills. He is currently on room air. The patient is currently on the phone with his primary care physician's office and they are trying to arrange for him to get a prior authorization for his Xarelto. Objective - Vital Signs Vital signs: Vital Signs Temp 97.5 F L 09/04/17 07:00 Pulse 109 H 09/04/17 08:48 Resp 18 09/04/17 07:00 BP 139/76 09/04/17 07:00 Pulse Ox 95 09/04/17 07:00 Intake & Output 09/03/17 09/04/17 09/04/17 18:59 06:59 18:59 Intake Total 240 1790 Output Total 2 Balance 238 1790 Weight 116.3 kg Intake: Oral 240 1790 Output: Urine 2 Other: Voiding Method Toilet Toilet Toilet # Voids 400 2 - Exam Gen.: Patient is alert and oriented 3, no acute distress, angry and anxious Cardiovascular: Regular rate and rhythm, S1/S2 Lungs: Scattered wheezing, good air movement, bases diminished Abdomen: Soft nontender nondistended positive bowel sounds Extremities: No edema - Labs CBC & Chem 7: 09/04/17 09:07 09/04/17 09:07 Labs: Abnormal Lab Results - Last 24 Hours (Table) 09/03/17 09/03/17 09/03/17 Range/Units 11:26 17:18 20:26 WBC (3.8-10.6) k/uL MCH (25.0-35.0) pg MCHC (31.0-37.0) g/dL RDW (11.5-15.5) % Neutrophils # (1.3-7.7) k/uL Chloride (98-107) mmol/L BUN (9-20) mg/dL Glucose (74-99) mg/dL POC Glucose (mg/dL) 121 H 189 H 146 H (75-99) mg/dL 09/04/17 09/04/17 09/04/17 Range/Units 07:25 09:07 09:07 WBC 16.1 H (3.8-10.6) k/uL MCH 24.7 L (25.0-35.0) pg MCHC 29.5 L (31.0-37.0) g/dL RDW 16.9 H (11.5-15.5) % Neutrophils # 13.8 H (1.3-7.7) k/uL Chloride 97 L (98-107) mmol/L BUN 35 H (9-20) mg/dL Glucose 265 H (74-99) mg/dL POC Glucose (mg/dL) 146 H (75-99) mg/dL Microbiology - Last 24 Hours (Table) 09/01/17 18:30 Blood Culture - Preliminary Blood No Growth after 48 hours Assessment and Plan Assessment: Acute exacerbation of COPD Dyspnea on exertion RSV positive History of pulmonary embolism, status post clot extraction History of right lower extremity DVT Severe obstructive sleep apnea with nocturnal hypoxemia, patient is noncompliant with BiPAP Scattered mild pulmonary fibrosis History of congestive heart failure Mild pulmonary hypertension, RVSP 47 mmHg Hypertension Rheumatoid arthritis Morbid obesity Tobacco abuse O2 to maintain saturation greater than or equal to 90% Continue Xarelto Duo nebs Pulmicort Smoking cessation is highly recommended Patient is made aware that he needs to wear his home BiPAP and that not doing so could result in and congestive heart failure, he states he has an appointment with the sleep center in September Bipap Qhs RSV positive Accu-Cheks and insulin sliding scale Solu-Medrol taper - change to prednisone Singulair Continue mucinex and flutter valve GI and DVT prophylaxis Ok to DC from pulmonary standpoint Follow up 1-2 weeks, patient encouraged to keep his appointment regarding his bipap Would discharge with LABA/LAMA/ICS combo plus Albuterol PRN, Singulair, Prednisone taper
[2017-09-04 11:44] LABS: Glucose,Whole Blood 155 mg/dL (75-99)
[2017-09-04] MEDS ORDERED: INFLUENZA VACCINE (6 MOS+) 60 MCG/0.5 ML SYRINGE IM ONE (12:55)
[2017-09-04 13:25] VITALS: PULSE 109
--- NOTE | 2017-09-04 14:23 | P.DS ---
Providers Date of admission: 09/01/17 22:18 Expected date of discharge: 09/04/17 Attending physician: Sommer Miles Consults: 09/01/17 22:18 Consult Physician Routine Consulting Provider: Ryan Shore Consult Reason/Comments: COPD exacerbation Do you want consulting provider notified?: Yes Primary care physician: [facility] Course: This is a 56-year-old male one of Dr. Culver with a previous medical history significant for rheumatoid arthritis under the care of Dr. Egan, history of hypertension and hypertensive cardiovascular disease, chronic tobacco use and dependence, COPD, hyperlipidemia, prior history of pulmonary emboli about 4 years ago and saddle pulmonary embolism in June 2017, obstructive sleep apnea on CPAP under care of Dr. TOMMIE Shore, CAD post left heart catheterization that was done about a year ago that showed 40% of coronary artery disease without any significant intervention, status post lumbar spine underwent spine surgery back in May 08, 2017. patient is having difficulty tolerating his CPAP at home as he states about 15-20 minutes after wearing it the pressure goes too high and blows away from his face. He does have a follow-up appointment with the sleep physician in September. He has recently lost 18 pounds Patient quit smoking in June but has an occasional cigarette only. He has had a stress test in July which she states was normal. Patient states his premature daughter is currently being treated at [facility] for RSV and infection at her feeding tube. He complains of shortness of breath with chest pain, fever, chills, sweats. He states it started on Saturday. chest x-ray shows no focal consolidation to suggest pneumonia. Mild interstitial thickening suggesting mild fluid overload.he was afebrile with initially elevated blood pressure of 137/106, tachycardia, pulse ox is 94% on room air.influenza testing was negative. He was given DuoNeb treatment but continued to have dyspnea and wheezing. Patient was admitted to the [facility] floor with COPD exacerbation and started on Solu-Medrol, DuoNeb treatments and consult with Dr. TOMMIE Shore/Dr. Bernstein. CT of the chest shows interval resolution of right-sided embolism. Suboptimal study without new embolism identified. Moderate underlying emphysema change without suspicious acute pulmonary process. Mild compression type fracture in the superior T12 endplate. 09/03: Pulmonary medicine has decreased Solu-Medrol to 40 mg every 12 hours. Patient is been afebrile. CTA of the chest shows above findings. Patient denies any back pain or discomfort. He does not recall any injury or sudden pain. He does have a physician at [place] that is done his previous back surgeries but he states he will follow up with [facility]. Melatonin added for sleep. Patient states he had some shortness of breath this morning but improved after updraft and after he coughed. Anticipate discharge in the next 24-48 hours. 09/04: RSV testing was positive. Patient has been afebrile. White count is currently 16.1. He is on Solu-Medrol 40 mg every 12 hours and will be switched over to prednisone. Patient will be given a prescription for prednisone and Symbicort for home. Patient states his breathing is much improved from yesterday. Patient is willing to get a flu vaccine prior to discharge which will be ordered. Patient will be discharged home today in stable condition. Discharge Diagnoses: 1. Acute COPD exacerbation. 2. Pulmonary infarct with recent bilateral saddle pulmonary embolism status post transferred to [facility] and thrombectomy. 3. Recent lumbar spine surgery. 4. Rheumatoid arthritis. 5. Degenerative disc disease. 6. History of pulmonary embolism with recurrent saddle pulmonary embolism. 7. Obstructive sleep apnea. 8. Hypertension and hypertensive cardiovascular disease. 9. New finding of possible T12 compression fracture that is asymptomatic. Patient will follow-up at [facility] as needed. Discharge plan: Return home Impression and plan of care have been directed as dictated by the signing physician. Oenyda Hill nurse practitioner acting as scribe for signing physician. Patient Condition at Discharge: Good Plan - Discharge Summary Discharge Rx Participant: No New Discharge Prescriptions: New Budesonide/Formoterol Fumarate [Symbicort 160-4.5 Mcg Inhaler] 2 puff INHALATION BID #1 inhaler guaiFENesin [Mucinex] 1,200 mg PO Q12HR tablet.er Melatonin 10 mg PO HS tablet Montelukast [Singulair] 10 mg PO HS #30 tab Nicotine 14Mg/24Hr Patch [Habitrol] 1 patch TRANSDERM Q24H #30 patch predniSONE 0 mg PO DIRECTED #42 tab Rivaroxaban [Xarelto] 20 mg PO DAILY #30 tab Continue Potassium Chloride ER [K-Dur 20] 20 meq PO BID Tofacitinib Citrate [Xeljanz] 5 mg PO BID Bumetanide [BUMEX] 2 mg PO BID Nitroglycerin Sl Tabs [Nitrostat] 0.4 mg SUBLINGUAL Q5M PRN #50 PRN Reason: Chest Pain Ipratropium [place] [Atrovent Hfa] 2 puff INHALATION RT-BID traMADol HCL [Ultram] 50 mg PO TID PRN PRN Reason: Pain oxyCODONE HCL/ACETAMINOPHEN [Percocet 10-325 mg] 1 tab PO Q6HR PRN PRN Reason: Pain Albuterol Inhaler [Ventolin Hfa Inhaler] 2 puff INHALATION RT-Q4H PRN PRN Reason: Shortness Of Breath Methocarbamol [Robaxin-750] 750 mg PO TID Gabapentin 600 mg PO TID Liver Formula 1 - 2 tab PO BID Docusate [Colace] 100 mg PO BID Calcium Carbonate/Vitamin D3 [Calcium 600-Vit D3 400 Caplet] 1 tab PO DAILY Ngoc-Yme 2 cap PO DAILY diphenhydrAMINE [Benadryl] 50 mg PO BID PRN PRN Reason: Itching Zinc,Mag Plus 1 tab PO DAILY Metoprolol Succinate (ER) [Toprol XL] 50 mg PO DAILY Magnesium Gluconate [Magonate] 1,000 mg PO DAILY Albuterol Nebulized [Ventolin Nebulized] 2.5 mg INHALATION Q6H PRN PRN Reason: Shortness Of Breath Lung Formula 2 tab PO BID buPROPion HCL [Wellbutrin SR] 150 mg PO BID Discharge Medication List Bumetanide [BUMEX] 2 mg PO BID 08/02/16 [History] Potassium Chloride ER [K-Dur 20] 20 meq PO BID 08/02/16 [History] Tofacitinib Citrate [Xeljanz] 5 mg PO BID 08/02/16 [History] Nitroglycerin Sl Tabs [Nitrostat] 0.4 mg SUBLINGUAL Q5M PRN #50 12/20/16 [Rx] Albuterol Inhaler [Ventolin Hfa Inhaler] 2 puff INHALATION RT-Q4H PRN 06/24/17 [ History] Gabapentin 600 mg PO TID 06/24/17 [History] Ipratropium [place] [Atrovent Hfa] 2 puff INHALATION RT-BID 06/24/17 [History] Methocarbamol [Robaxin-750] 750 mg PO TID 06/24/17 [History] oxyCODONE HCL/ACETAMINOPHEN [Percocet 10-325 mg] 1 tab PO Q6HR PRN 06/24/17 [ History] traMADol HCL [Ultram] 50 mg PO TID PRN 06/24/17 [History] Calcium Carbonate/Vitamin D3 [Calcium 600-Vit D3 400 Caplet] 1 tab PO DAILY [History] Docusate [Colace] 100 mg PO BID 07/27/17 [History] Liver Formula 1 - 2 tab PO BID 07/27/17 [History] Albuterol Nebulized [Ventolin Nebulized] 2.5 mg INHALATION Q6H PRN 09/01/17 [ History] Ngoc-Yme 2 cap PO DAILY 09/01/17 [History] Lung Formula 2 tab PO BID 09/01/17 [History] Magnesium Gluconate [Magonate] 1,000 mg PO DAILY 09/01/17 [History] Metoprolol Succinate (ER) [Toprol XL] 50 mg PO DAILY 09/01/17 [History] Zinc,Mag Plus 1 tab PO DAILY 09/01/17 [History] buPROPion HCL [Wellbutrin SR] 150 mg PO BID 09/01/17 [History] diphenhydrAMINE [Benadryl] 50 mg PO BID PRN 09/01/17 [History] Budesonide/Formoterol Fumarate [Symbicort 160-4.5 Mcg Inhaler] 2 puff INHALATION BID #1 inhaler 09/04/17 [Rx] Melatonin 10 mg PO HS tablet 09/04/17 [Rx] Montelukast [Singulair] 10 mg PO HS #30 tab 09/04/17 [Rx] Nicotine 14Mg/24Hr Patch [Habitrol] 1 patch TRANSDERM Q24H #30 patch 09/04/17 [ Rx] Rivaroxaban [Xarelto] 20 mg PO DAILY #30 tab 09/04/17 [Rx] guaiFENesin [Mucinex] 1,200 mg PO Q12HR tablet.er 09/04/17 [Rx] predniSONE 0 mg PO DIRECTED #42 tab 09/04/17 [Rx] Follow up Appointment(s)/Referral(s): Amador Culver DO [Primary Care Provider] - 1 Week (Patient to call Dr. Culver's office to schedule follow up appointment. The office is closed at time of discharge. ) Ryan Shore MD [STAFF PHYSICIAN] - 09/12/17 2:15 pm Patient Instructions/Handouts: Prednisone (By mouth), Nicotine (Absorbed through the skin), Montelukast (By mouth), Budesonide/Formoterol (By breathing) , Rivaroxaban (By mouth), Respiratory Syncytial Virus (DC), COPD (Chronic Obstructive Pulmonary Disease) (DC) Discharge Disposition: HOME SELF-CARE
[2017-09-05] MEDS ORDERED: predniSONE 20 MG TAB PO SCH (09:00)
== END 2017-09-04 14:37 | disposition home or self-care (01) | DRG 190 ==
LOC: EC 18:09 → 3SUR 22:18 → 5MS5E 09-02 13:40
PROVIDERS: ADMIT Family Medicine; ATTEND Family Medicine
DX: J44.1 Chronic obstructive pulmonary disease with (acute) exacerbation (principal); I26.99 Other pulmonary embolism without acute cor pulmonale; I27.20 Pulmonary hypertension, unspecified; I50.9 Heart failure, unspecified; I11.0 Hypertensive heart disease with heart failure; B97.4 Respiratory syncytial virus as the cause of diseases classified elsewhere; E66.01 Morbid (severe) obesity due to excess calories; M48.54XA Collapsed vertebra, not elsewhere classified, thoracic region, initial encounter for fracture; M06.9 Rheumatoid arthritis, unspecified; G47.33 Obstructive sleep apnea (adult) (pediatric); E78.5 Hyperlipidemia, unspecified; J84.10 Pulmonary fibrosis, unspecified; R09.02 Hypoxemia; I25.10 Atherosclerotic heart disease of native coronary artery without angina pectoris; H26.9 Unspecified cataract; F17.210 Nicotine dependence, cigarettes, uncomplicated; Z88.6 Allergy status to analgesic agent; Z79.891 Long term (current) use of opiate analgesic; Z81.1 Family history of alcohol abuse and dependence; Z82.49 Family history of ischemic heart disease and other diseases of the circulatory system; Z79.899 Other long term (current) drug therapy; Z79.01 Long term (current) use of anticoagulants; Z83.2 Family history of diseases of the blood and blood-forming organs and certain disorders involving the immune mechanism; Z86.711 Personal history of pulmonary embolism; Z82.5 Family history of asthma and other chronic lower respiratory diseases; Z80.3 Family history of malignant neoplasm of breast; Z80.1 Family history of malignant neoplasm of trachea, bronchus and lung; Z90.89 Acquired absence of other organs; Z98.1 Arthrodesis status; Z68.36 Body mass index [BMI] 36.0-36.9, adult; Z86.718 Personal history of other venous thrombosis and embolism; Z91.19 Patient's noncompliance with other medical treatment and regimen; Z86.010 Personal history of colon polyps; Z71.6 Tobacco abuse counseling
CPT/HCPCS: 36415; 71046; 71275; 80053; 82550; 82553; 83036; 83735; 83880; 84484; 85025; 85610; 85730; 87040; 87498; 87502; 87634; 87798; 90686; 93005; 93308; 94640; 94660; 94760; 96361; 96365; 96375; 99285

== ENCOUNTER → 2017-11-14 | Outpatient (CLI) | payer OTHER ==
--- NOTE | 2017-11-14 14:27 | SFUN ---
SLEEP CENTER FOLLOW UP NOTE DATE OF SERVICE: 11/14/2017 A 56-year-old gentleman who has been followed in the Sleep Center for treatment of extremely severe obstructive sleep apnea-hypopnea syndrome, apnea-hypopnea index 93.7 with oxygen desaturation of 37.6%. Patient supposed to be on treatment with BiPAP with a pressure of 22/18 and that what his pressure in November of 2016 last year, but at the present time, patient can not use the machine, the pressure is too much for him and again for the last several months he cannot use it. The patient lost about 17 pounds of weight since titration which could be the reason for which could be the explanation why it is difficult for him to use the machine at the present time, because the pressure could be too high for him. [place] Sleepiness Scale today is 9. MEDICATIONS: In addition to the blood pressure medicines, the patient takes medications for high blood pressure, blood thinner, potassium supplement, are the 42 Aleve last year it was. She only occasionally has a beer occasionally during. PHYSICAL EXAM: Patient in no distress. BP 145/83, HR around 100, RR 16, height 5, 8, weight 271, BMI 42.2, temp is 98.0, oxygen saturation at room air 97% . OROPHARYNX: Low position of soft palate. ABDOMEN: Obese. HEART: S1, S2. Regular tachycardia to a day or 2 and also in the list of medications list of water pills. Extremities 1+ ankle edema. IMPRESSION: 1. Extremely severe obstructive sleep apnea-hypopnea syndrome. Presently, patient is on AutoPap machine but cannot use it. Does not tolerate pressure/. 2. Obesity, patient lost 17 pounds since previous titration study. 3. Hypertension. 4. Status post recent bilateral cataract surgery. 5. Status post back surgery in May 2018. 6. Status post treatment for pulmonary embolism about 2-1/2 months ago. 7. Mild swelling of legs. PLAN: 1. I would repeat BiPAP titration the present time because patient lost weight and cannot use auto PAP equipment. 2. Losing weight. 3. Sleep hygiene with regular time in bed for at least 8 hours. 4. No driving if feeling any sleepiness. Thank you very much for allowing me to participate in the management of your patient. Sincerely, Clif Edmond MD, PhD, FAASM Diplomat of [employer] Community Manager of [facility] [place] MMODL / IJN: [id number] /
== END | disposition home or self-care (01) ==
LOC: SLEEP 13:03
PROVIDERS: ATTEND Internal Medicine
DX: G47.33 Obstructive sleep apnea (adult) (pediatric) (principal); E66.9 Obesity, unspecified; I10 Essential (primary) hypertension; R22.43 Localized swelling, mass and lump, lower limb, bilateral; Z98.890 Other specified postprocedural states; Z79.899 Other long term (current) drug therapy; Z86.711 Personal history of pulmonary embolism; Z99.89 Dependence on other enabling machines and devices; Z79.01 Long term (current) use of anticoagulants; Z68.41 Body mass index [BMI] 40.0-44.9, adult

== ENCOUNTER → 2017-11-29 | Outpatient (CLI) | payer OTHER ==
--- NOTE | 2017-11-29 14:10 | CT ---
EXAMINATION TYPE: CT chest w con DATE OF EXAM: 11/29/2017 COMPARISON: 09/02/2017 HISTORY: Follow up to Rt upper lung infiltrate CT DLP: 1191 mGycm Automated exposure control for dose reduction was used. CONTRAST: CT scan of the chest is performed with IV Contrast, patient injected with 100 mL of Isovue 300. FINDINGS: LUNGS: Stable postinflammatory change right upper lobe as well and to a lesser extent left upper lobe peripherally. No distinct focal consolidation. Dependent basilar atelectasis. Mild to moderate to phillips perimposed emphysematous changes. MEDIASTINUM: Anterior mediastinal lymph node persists and measures approximately 2.2 x 1.2 cm. No per icardial effusion is seen. Thoracic aorta is of normal caliber. The heart is not enlarged. UPPER ABDOMEN: Stable cystic periphery of the left hepatic lobe.. OTHER: No additional significant abnormality is seen. IMPRESSION: 1. Chronic postinflammatory changes persist. No acute infiltrate identified at this time. 2. Underlying emphysematous change.
== END | disposition home or self-care (01) ==
LOC: RADCTMAIN 13:21
PROVIDERS: ATTEND Family Medicine
DX: J43.9 Emphysema, unspecified (principal); R91.8 Other nonspecific abnormal finding of lung field
CPT/HCPCS: 71260; Q9967

== ENCOUNTER 2018-01-04 22:18 | Observation (INO) | payer OTHER ==
--- NOTE | 2018-01-04 22:32 | ED ---
Chest Pain HPI - General Chief Complaint: Chest Pain Stated Complaint: Chest Pain Time Seen by Provider: 01/04/18 22:20 Source: patient, EMS Mode of arrival: EMS Limitations: no limitations - History of Present Illness Initial Comments: This patient is a 57-year-old man who states that he has history of previous DVT /PE, and presents with left-sided chest pain that he states is similar to that previous episode. The patient states that he noted onset this morning at 2 AM while he was in bed. Patient states that he took a nitroglycerin and the pain was somewhat relieved though did not go away. He notes that the pain is in the left midaxillary line. It seems to get worse with movement, taking deep breath , or pressing on his side. He rates it as severe intensity. He has not noted relieving factors other than a nitroglycerin. When the pain continued throughout today and into tonight he felt he should be evaluated and called EMS. He states that they gave him nitroglycerin and it did temporarily stop the pain but it has recurred. He denies any associated anginal type symptoms. MD Complaint: chest pain Onset/Timin -: hour(s) Onset: during rest Pain Location: left chest Pain Radiation: none Severity: severe Quality: sharp Consistency: constant Improves With: nothing Worsens With: inspiration, palpation, movement Treatments Prior to Arrival: nitroglycerin - Related Data Home Medications Medication Instructions Recorded Confirmed Bumetanide [BUMEX] 2 mg PO BID 08/02/16 01/05/18 Potassium Chloride ER [K-Dur 20] 40 meq PO DAILY 08/02/16 01/05/18 Albuterol Inhaler [Ventolin Hfa 2 puff INHALATION RT-Q4H PRN 06/24/17 01/05/18 Inhaler] Ipratropium [place] [Atrovent Hfa] 2 puff INHALATION RT-BID 06/24/17 01/05/18 Methocarbamol [Robaxin-750] 750 mg PO Q8H PRN 06/24/17 01/05/18 oxyCODONE HCL/ACETAMINOPHEN 1 tab PO Q6HR PRN 06/24/17 01/05/18 [Percocet 10-325 mg] Calcium Carbonate/Vitamin D3 1 tab PO DAILY 07/27/17 01/05/18 [Calcium 600-Vit D3 400 Caplet] Docusate [Colace] 100 mg PO BID 07/27/17 01/05/18 Albuterol Nebulized [Ventolin 2.5 mg INHALATION RT-Q6H PRN 09/01/17 01/05/18 Nebulized] Ngoc-Yme 2 cap PO DAILY 09/01/17 01/05/18 Lung Formula 2 tab PO BID 09/01/17 01/05/18 Magnesium Gluconate [Magonate] 1,000 mg PO DAILY 09/01/17 01/05/18 Metoprolol Succinate (ER) [Toprol 50 mg PO DAILY 09/01/17 01/05/18 XL] Zinc,Mag Plus 1 tab PO DAILY 09/01/17 01/05/18 buPROPion HCL [Wellbutrin SR] 150 mg PO BID 09/01/17 01/05/18 Gabapentin [Neurontin] 300 mg PO Q8H PRN 01/05/18 01/05/18 Leflunomide [Arava] 20 mg PO DAILY 01/05/18 01/05/18 Multivitamin [Men's Multi-Vitamin] 1 tab PO DAILY 01/05/18 01/05/18 Rivaroxaban [Xarelto] 20 mg PO DAILY 01/05/18 01/05/18 Previous Rx's Medication Instructions Recorded Nitroglycerin Sl Tabs [Nitrostat] 0.4 mg SUBLINGUAL Q5M PRN #50 12/20/16 Montelukast [Singulair] 10 mg PO HS #30 tab 09/04/17 Nicotine 14Mg/24Hr Patch [Habitrol] 1 patch TRANSDERM Q24H #30 patch 09/04/17 guaiFENesin [Mucinex] 1,200 mg PO Q12HR tablet.er 09/04/17 Acetaminophen Tab [Tylenol] 1,000 mg PO Q6HR PRN tab 01/05/18 Melatonin 10 mg PO HS tablet 01/05/18 Allergies Allergy/AdvReac Type Severity Reaction Status Date / Time hydrocodone [From [place]] Allergy Rash/Hives Verified 01/04/18 22:23 Review of Systems ROS Statement: Those systems with pertinent positive or pertinent negative responses have been documented in the HPI. ROS Other: All systems not noted in ROS Statement are negative. Constitutional: Denies: fever, chills, weakness Respiratory: Denies: cough, dyspnea Cardiovascular: Reports: chest pain. Denies: palpitations, dyspnea on exertion , orthopnea, edema, syncope Gastrointestinal: Denies: abdominal pain, nausea, vomiting Genitourinary: Denies: dysuria, hematuria Musculoskeletal: Denies: back pain Skin: Denies: rash Neurological: Denies: headache, weakness, numbness EKG Findings - EKG Results: EKG: interpreted by TORIBIO, REAL, sinus rhythm (Rate 88 bpm), normal axis, normal QRS, normal ST/T, no acute changes - [place], Pacemaker, Normal: Normal tracing: normal tracing Past Medical History Past Medical History: Coronary Artery Disease (CAD), Heart Failure, COPD, Hyperlipidemia, Hypertension, Pulmonary Embolus (PE), Rheumatoid Arthritis (RA) , Sleep Apnea/CPAP/BIPAP Additional Past Medical History / Comment(s): rheumatoid arthritis, 2 pulmonary embolisms right lung and 1 pulmonary embolism L lung, cataracts bilaterally and watery eyes bilaterally, pt states 100 pound unexplained wt gain about 18 months ago but since has been maintaing, obstructive sleep apnea with CPAP.chronic back pain "sciatic nerve damage" History of Any Multi-Drug Resistant Organisms: None Reported Past Surgical History: Back Surgery, Heart Catheterization, Tonsillectomy Additional Past Surgical History / Comment(s): 2012 cardiac cath with mild CAD, cervical fusion (ACDF),egd, colonoscopy 1-1/2 years ago-normal.and one on had polyps removed(benign).he had 2 lumbar surgeries 03/2017 and 05/08/2017 at [facility] by Dr.Khalil Castillo. Past Anesthesia/Blood Transfusion Reactions: No Reported Reaction Past Psychological History: No Psychological Hx Reported Smoking Status: Current every day smoker Past Alcohol Use History: None Reported Past Drug Use History: None Reported - Past Family History Mother Family Medical History: Cancer, Congestive Heart Failure (CHF) Additional Family Medical History / Comment(s): breast cancer. Mother of CHF at the age of 84 yrs. Father Family Medical History: Cancer, COPD, CVA/TIA Additional Family Medical History / Comment(s): lung cancer. Father of copd at the age of 79yrs. Sister(s) Family Medical History: Deep Vein Thrombosis (DVT) Additional Family Medical History / Comment(s): Patient has one sister that at age 55 from a brain aneurysm. He has 3 other sisters with no major medical problems. Brother(s) Additional Family Medical History / Comment(s): Patient has 3 brothers and one has history of coronary artery disease status post CABG and lap band surgery. Son(s) Additional Family Medical History / Comment(s): Patient has one son with history of drug and alcohol addiction. General Exam Limitations: no limitations General appearance: alert, in no apparent distress, obese Head exam: Present: atraumatic, normocephalic Eye exam: Present: normal appearance. Absent: scleral icterus, conjunctival injection ENT exam: Present: normal oropharynx Neck exam: Present: normal inspection Respiratory exam: Present: normal lung sounds bilaterally, chest wall tenderness. Absent: respiratory distress, wheezes, rales, rhonchi, stridor Cardiovascular Exam: Present: regular rate, normal rhythm, normal heart sounds. Absent: systolic murmur, diastolic murmur, rubs, gallop GI/Abdominal exam: Present: soft. Absent: distended, tenderness, guarding, rebound, rigid, mass Extremities exam: Present: normal inspection, normal capillary refill. Absent: pedal edema, calf tenderness Back exam: Present: normal inspection. Absent: CVA tenderness (R), CVA tenderness (L) Neurological exam: Present: alert Skin exam: Present: warm, dry, intact, normal color. Absent: rash Course Vital Signs 01/04/18 01/04/18 01/05/18 22:21 23:43 01:18 Temperature 97.4 F L Pulse Rate 97 74 80 Pulse Rate [ Pulse Oximetery ] Respiratory 18 18 20 Rate Blood Pressure 139/88 130/74 114/58 Blood Pressure [Right Arm] O2 Sat by Pulse 95 98 97 Oximetry 01/05/18 01:34 Temperature 97 F L Pulse Rate Pulse Rate [ 81 Pulse Oximetery ] Respiratory 16 Rate Blood Pressure Blood Pressure 127/80 [Right Arm] O2 Sat by Pulse 96 Oximetry - Reevaluation(s) Reevaluation #1: 01/04/18 23:05 Patient declines analgesia at time of initial history and physical, states that he will watch TV relieve the pain. Disposition Clinical Impression: Chest pain Disposition: ADMITTED IP TO THIS [facility] Condition: Good
[2018-01-04 22:39] LABS: Anisocytosis Slight; Basophils # (A) 0.1 k/uL (0-0.2); Basophils % (A) 0 %; Eosinophils # (A) 0.2 k/uL (0-0.7); Eosinophils % (A) 2 %; HCT 46.3 % (39.0-53.0); HGB 14.4 gm/dL (13.0-17.5); Hypochromasia Slight; Lymphocytes # (A) 2.8 k/uL (1.0-4.8); Lymphocytes % (A) 23 %; MCH 25.9 pg (25.0-35.0); MCHC 31.1 g/dL (31.0-37.0); MCV 83.1 fL (80.0-100.0); Mean Platelet Volume 8.4; Monocytes # (A) 0.8 k/uL (0-1.0); Monocytes % (A) 7 %; Neutrophils # (A) 7.9 k/uL (1.3-7.7); Neutrophils % (A) 67 %; Platelet Count 261 k/uL (150-450); RBC 5.57 m/uL (4.30-5.90); RDW 16.7 % (11.5-15.5); WBC 11.8 k/uL (3.8-10.6)
[2018-01-04 22:51] LABS: ALT 30 U/L (21-72); AST 24 U/L (17-59); Albumin 3.5 g/dL (3.5-5.0); Alkaline Phosphatase 73 U/L (38-126); Anion Gap 11 mmol/L; Blood Urea Nitrogen 22 mg/dL (9-20); Carbon Dioxide 22 mmol/L (22-30); Chloride 109 mmol/L (98-107); Glucose 128 mg/dL (74-99); Magnesium 2.4 mg/dL (1.6-2.3); Potassium 4.3 mmol/L (3.5-5.1); Sodium 142 mmol/L (137-145); Total Bilirubin 0.3 mg/dL (0.2-1.3); Total Protein 6.6 g/dL (6.3-8.2)
[2018-01-04 23:02] LABS: Creatine Kinase 54 U/L (55-170)
[2018-01-04 23:09] LABS: D-Dimer 0.52 mg/L FEU (<0.60); Partial Thromboplastin Time 25.6 sec (22.0-30.0); Prothrombin Time 10.2 sec (9.0-12.0)
[2018-01-04 23:15] LABS: Creatine Kinase MB 0.6 ng/mL (0.0-2.4); Troponin I <0.012 ng/mL (0.000-0.034)
--- NOTE | 2018-01-04 23:36 | XR ---
EXAM: XR Chest, 2 Views CLINICAL HISTORY: ITS.REASON XR Reason: Chest Pain TECHNIQUE: Frontal and lateral views of the chest. COMPARISON: 08/24/17 FINDINGS: Lungs: Unremarkable. No consolidation chronic interstitial changes noted bilaterally. Pleural space: Unremarkable. No pneumothorax. No evidence of pleural effusion Heart: Unremarkable. No cardiomegaly. Mediastinum: Unremarkable. Bones/joints: Unremarkable. IMPRESSION: Chronic interstitial changes interval change compared to prior study
[2018-01-04] MEDS ORDERED: MORPHINE SULFATE 2 MG/ML SYRINGE IV STA (23:43)
--- NOTE | 2018-01-05 00:14 | CT ---
EXAM: CT Chest With Intravenous Contrast CLINICAL HISTORY: ITS.REASON CT Reason: Pain TECHNIQUE: Axial computed tomography images of the chest with intravenous contrast during the arterial phase of enhancement. CTDI is 18.7 mGy and DLP is 724.3 mGy-cm. This CT exam was performed using one or more of the following dose reduction techniques: automated exposure control, adjustment of the mA and/or kV according to patient size, and/or use of iterative reconstruction technique. Coronal and sagittal reformatted images were created and reviewed. COMPARISON: June 24, 2017 FINDINGS: INDICATION: TECHNIQUE: Multiple, contiguous 2.5 mm axial cuts of the chest are obtained following the administration of IV contrast. High resolution axial image as well as, sagittal and coronal reformatted images are available. COMPARISON: FINDINGS: Improvement in aeration lungs compared to prior study. Resolution of pulmonary embolus compared to prior study with no residual embolus identified There are persistent emphysematous changes with bullous replacement of much the upper lobes. Chronic scarring in the lung bases with some subpleural line formation No pulmonary embolus is identified. The aorta is within normal limits, no aneurysm or dissection. The cardiomediastinal structures are normal. Stable appearance to mediastinal adenopathy The osseous structures are unremarkable. IMPRESSION: No evidence of pulmonary embolus. Chronic interstitial changes in the lungs bilaterally
[2018-01-05] MEDS ORDERED: NITROGLYCERIN SL TABS 0.4 MG TAB SUBLINGUAL PRN (00:53)
[2018-01-05] MEDS ORDERED: MORPHINE SULFATE 2 MG/ML SYRINGE IV PRN (00:53)
[2018-01-05] MEDS ORDERED: NICOTINE 14MG/24HR PATCH TRANSDERM SCH (01:00)
[2018-01-05] MEDS ORDERED: TEMAZEPAM 15 MG CAP PO PRN (01:49)
[2018-01-05 02:21] VITALS: BMI 37.3
[2018-01-05 05:27] LABS: Creatine Kinase 41 U/L (55-170)
[2018-01-05 05:41] LABS: Creatine Kinase MB 0.5 ng/mL (0.0-2.4); Troponin I <0.012 ng/mL (0.000-0.034)
[2018-01-05 07:44] VITALS: RESP 17; TEMP 96.9
[2018-01-05] MEDS ORDERED: IPRATROPIUM 0.5 MG/2.5 ML NEBU INHALATION SCH (08:00)
[2018-01-05] MEDS ORDERED: buPROPion SR 150 MG TABLET.ER PO SCH (09:00)
[2018-01-05] MEDS ORDERED: METOPROLOL SUCCINATE (ER) 50 MG TAB.ER.24H PO SCH (09:00)
[2018-01-05] MEDS ORDERED: MAGNESIUM OXIDE 400 MG TAB PO SCH (09:00)
[2018-01-05] MEDS ORDERED: DOCUSATE 100 MG CAP PO SCH (09:00)
[2018-01-05] MEDS ORDERED: TOFACITINIB CITRATE 5 MG PO SCH (09:00)
[2018-01-05] MEDS ORDERED: guaiFENesin 600 MG TABLET.ER PO SCH (09:00)
[2018-01-05] MEDS ORDERED: RIVAROXABAN 10 MG TAB PO SCH (09:00)
[2018-01-05] MEDS ORDERED: METHOCARBAMOL 750 MG TAB PO SCH (09:00)
[2018-01-05] MEDS ORDERED: BUMETANIDE 1 MG TAB PO SCH (09:00)
[2018-01-05] MEDS ORDERED: POTASSIUM CHLORIDE ER 20 MEQ TAB.ER PO SCH (09:00)
[2018-01-05] MEDS ORDERED: GABAPENTIN 300 MG CAP PO SCH (09:00)
[2018-01-05] MEDS ORDERED: ACETAMINOPHEN TAB 500 MG TAB PO PRN (09:06)
[2018-01-05 10:27] LABS: Creatine Kinase 42 U/L (55-170)
[2018-01-05 10:41] LABS: Creatine Kinase MB 0.5 ng/mL (0.0-2.4); Troponin I <0.012 ng/mL (0.000-0.034)
[2018-01-05 11:34] VITALS: BP 116/68; PULSE 84
--- NOTE | 2018-01-05 16:16 | CONS ---
CONSULTATION Waylon Locke is a 57-year-old obese gentleman who sees Dr. Jarad Shore in the outpatient setting and had a full evaluation including a pulmonary stress test not long ago. He is not particularly an active person and does not have any regular occupation, but he developed yesterday an episode of left lower chest and abdominal discomfort. This is in the lateral area where he can actually point to me with a finger and the pain appears to be very atypical, musculoskeletal in nature. When he came in with these symptoms in the emergency room a D-dimer was on normal but because of persisting pain, he was advised to have a CT angio which was negative for any pulmonary embolism or for any aortic pathology. This morning his pain is better. Only on a particular movement is he able to reproduce the pain. It appears very musculoskeletal. He does not have any chest pain to suggest angina either now or in the recent past. PAST MEDICAL HISTORY: Remarkable for hypertension, hyperlipidemia, and a pulmonary embolism and obstructive sleep apnea syndrome and uses a BiPAP regularly. He apparently had 2 episodes of pulmonary embolism. There is also some rheumatoid arthritis history as well. He is on Xarelto 20 mg daily. Sometime in 2012 apparently had a cardiac cath which revealed mild CAD. No significant obstructive CAD. Previous cervical spine surgery and also had some lumbar surgery as well. Details are unavailable. MEDICATIONS: At home include [place], Bumex, albuterol inhaler, gabapentin, he also takes magnesium, zinc supplements, rivaroxaban 20 mg daily and also Singulair and sometimes he takes prednisone. ALLERGIES: HYDROCODONE. EXAMINATION: Blood pressure is 120/70, pulse is 80 per minute, regular. HEENT: Unremarkable. Fundus was not examined by me. Neck is supple. No JVD. I do not hear a carotid bruit. There is no thyromegaly. Heart exam reveals S1, S2 heard normally with distant sounds. Lungs are clear. Abdomen is soft, nontender. Lower extremities reveal palpable pulses. No edema. Central nervous system is normal. EKG revealed sinus mechanism, minor right ventricular conduction delay. No acute changes. LABORATORY DATA: Revealed that his troponin levels are normal. Liver functions are normal. D-dimer is normal. IMPRESSION: 1. Musculoskeletal chest pain. 2. History of pulmonary embolism. 3. History of bronchial asthma and obstructive sleep apnea syndrome, wears a CPAP. RECOMMENDATIONS: From a cardiac standpoint, no intervention is necessary at this time. I am recommending that he can be discharged and follow up as an outpatient and I will perform stress testing. I advised to call me in 2 weeks. He had a pulmonary function stress test, walked well on the treadmill according to the patient, details are not available. Advised risk factor modification and to call me for a question, concern or problem. [email or web address] / REJIN: [id number] /
--- NOTE | 2018-01-05 17:41 | P.HPIM ---
History of Present Illness H&P Date: 01/05/18 Chief Complaint: Chest pain This document observed both in H&P and discharge summary This is a 57-year-old male one of Dr. Culver with a previous medical history significant for rheumatoid arthritis under the care of Dr. Egan, history of hypertension and hypertensive cardiovascular disease, chronic tobacco use and dependence, COPD, hyperlipidemia, prior history of pulmonary emboli about 4 years ago and saddle pulmonary embolism in June 2017, obstructive sleep apnea on CPAP under care of Dr. TOMMIE Shore, CAD post left heart catheterization that was done that showed 40% of coronary artery disease without any significant intervention, status post lumbar spine underwent spine surgery back in May 08, 2017. Patient was seen in emergency room secondary to chest pain left-sided area at 2: 00 in the morning, patient had some partial relief with nitroglycerin, and was subsequently seen in the emergency room, and was given nitroglycerin by EMS transport also with some relief. Patient has had symptoms that persisted the entire day for approximately 21 hours, it characterize as sharp and constant, without any diaphoresis. Patient has complained that this is similar to his previous episode of a pulmonary emboli,. Patient continues to smoke despite multiple attempts to quit. Investigations emergency room include a normal d- dimer creatinine of 0.7, troponins 3 series are negative, INR 1.0 CT chest with contrast study shows interval resolution of pulmonary emboli, improvement of aeration, persistent COPD changes with bullous the placement of much of the upper lobe, chronic scarring in the lung bases no IUDs him He is scheduled to have kyphoplasty [facility] this , 2017 for Mild compression type fracture in the superior T12 endplate last June 2014. And is currently off anticoagulation including aspirin for it. Patient was admitted to the hospital for observation, chest pain ruled out myocardial infarction. Cleared by cardiology for discharge, outpatient workup, Dr. NATALIYA Shore will be following him and he will be he is manager user experience as she didn 't have any manager user experience prior Review of Systems Constitutional: Reports as per HPI, Denies anorexia, Denies chills, Denies chronic headaches, Denies chronic pain, Denies daytime sleepiness, Denies fatigue, Denies fever, Denies lethargy, Denies malaise, Denies night sweats, Denies poor appetite, Denies sweats, Denies weakness, Denies weight gain, Denies weight loss Ears, nose, mouth and throat: Reports as per HPI, Denies ant. neck pain, Denies bleeding gums, Denies dental pain, Denies dysphagia, Denies epistaxis, Denies headache, Denies hoarseness, Denies mouth pain, Denies nasal congestion, Denies nasal discharge, Denies neck fullness/pressure, Denies neck lump, Denies nose pain, Denies odynophagia, Denies post-nasal drip, Denies sinus pain, Denies sinus pressure, Denies swelling in mouth, Denies swelling in throat, Denies sore throat, Denies vertigo, Denies voice changes Cardiovascular: Reports as per HPI, Reports chest pain, Denies claudication, Denies decreased exercise tolerance, Denies dyspnea on exertion, Denies edema, Denies high blood pressure, Denies irregular heart beat, Denies leg edema, Denies lightheadedness, Denies orthopnea, Denies palpitations, Denies paroxysmal nocturnal dyspnea, Denies phlebitis, Denies rapid heart beat, Denies shortness of breath, Denies syncope Respiratory: Reports as per HPI, Denies congestion, Denies cough, Denies cough with sputum, Denies dyspnea, Denies excessive sputum, Denies hemoptysis, Denies home oxygen, Denies pain, Denies pain on inspiration, Denies pleurisy, Denies respiratory infections, Denies sleep apnea, Denies snoring, Denies wheezing Gastrointestinal: Reports as per HPI, Denies abdominal pain, Denies belching, Denies bloating, Denies BRBPR, Denies change in bowel habits, Denies coffee ground emesis, Denies constipation, Denies diarrhea, Denies dyspepsia, Denies early satiety, Denies excessive gas, Denies heartburn, Denies hematemesis, Denies hematochezia, Denies indigestion, Denies jaundice, Denies lactose intolerance, Denies loss of appetite, Denies melena, Denies nausea, Denies vomiting Genitourinary: Reports as per HPI, Denies decreased libido, Denies difficulties fathering child, Denies discharge, Denies dysuria, Denies erectile dysfunction, Denies flank pain, Denies genital pain, Denies genital sores, Denies hematuria, Denies impotence, Denies incontinence, Denies kidney stones, Denies nocturia, Denies polyuria, Denies testicular lump, Denies testicular pain, Denies urinary frequency, Denies urinary hesitancy, Denies urinary retention Musculoskeletal: Reports as per HPI, Denies arm numbness/tingling, Denies atrophy, Denies fractures, Denies frequent falls, Denies gait dysfunction, Denies hot joints, Denies leg numbness/tingling, Denies limitation of motion, Denies loss of height, Denies low back pain, Denies morning stiffness, Denies muscle cramps, Denies muscle weakness, Denies myalgias, Denies neck pain, Denies neck stiffness, Denies prior amputations, Denies redness of joints, Denies shooting arm pain, Denies shooting leg pain Neurological: Reports as per HPI, Denies aphasia, Denies ataxia, Denies balance difficulties, Denies burning pain, Denies change in mentation, Denies change in smell/taste, Denies change in speech, Denies confusion, Denies convulsions, Denies double vision, Denies gait dysfunction, Denies head injury, Denies headaches, Denies hearing difficulties, Denies lack of coordination, Denies loss of vision, Denies memory loss, Denies migraines, Denies motor disturbance, Denies numbness, Denies paralysis, Denies paresthesias, Denies seizures, Denies sensory deficit, Denies spasticity, Denies syncope, Denies tic, Denies tingling , Denies transient paralysis, Denies tremors, Denies vertigo, Denies weakness, Denies visual changes Psychiatric: Reports as per HPI, Denies anhedonia, Denies anxiety, Denies anxiety attacks, Denies change in appetite, Denies change in libido, Denies change in sleep habits, Denies confusion, Denies depression, Denies difficulty concentrating, Denies disorientation, Denies hallucinations, Denies hopelessness , Denies hypersomnia, Denies insomnia, Denies irritability, Denies memory loss, Denies mood swings, Denies paranoia, Denies sadness/tearfulness, Denies sleep disturbances, Denies suicidal ideation Endocrine: Reports as per HPI Hematologic/Lymphatic: Reports as per HPI Allergic/Immunologic: Reports as per HPI Past Medical History Past Medical History: Coronary Artery Disease (CAD), Heart Failure, COPD, Hyperlipidemia, Hypertension, Pulmonary Embolus (PE), Rheumatoid Arthritis (RA) , Sleep Apnea/CPAP/BIPAP Additional Past Medical History / Comment(s): 2 pulmonary embolisms right lung and 1 pulmonary embolism L lung, cataracts bilaterally and watery eyes bilaterally, pt states 100 pound unexplained wt gain about 18 months ago but since has been maintaing, obstructive sleep apnea with CPAP. chronic back pain "sciatic nerve damage" History of Any Multi-Drug Resistant Organisms: None Reported Past Surgical History: Back Surgery, Heart Catheterization, Tonsillectomy Additional Past Surgical History / Comment(s): 2012 cardiac cath with mild CAD, cervical fusion (ACDF),egd, colonoscopy 1-1/2 years ago-normal.and one on had polyps removed(benign).he had 2 lumbar surgeries 03/2017 and 05/08/2017 at [facility] by Dr.Khalil Castillo. Past Anesthesia/Blood Transfusion Reactions: No Reported Reaction Past Psychological History: No Psychological Hx Reported Additional Psychological History / Comment(s): Pt resides with his spouse oliver and recently adopted 2 children 2 and 4, in a single level home that has 4 front steps. one pet dog named "whitney" He is independent. no home care services recieved. has a cpap [employer]. no service in past. 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 Smoking Status: Current every day smoker Past Alcohol Use History: None Reported Additional Past Alcohol Use History / Comment(s): started smoking in 1975 smokes 1ppd, and quit smoking in June 2017 but occasionally has a single cigarette. Past Drug Use History: None Reported - Past Family History Mother Family Medical History: Cancer, Congestive Heart Failure (CHF) Additional Family Medical History / Comment(s): breast cancer. Mother of CHF at the age of 84 yrs. Father Family Medical History: Cancer, COPD, CVA/TIA Additional Family Medical History / Comment(s): lung cancer. Father of copd at the age of 79yrs. Sister(s) Family Medical History: Deep Vein Thrombosis (DVT) Additional Family Medical History / Comment(s): Patient has one sister that at age 55 from a brain aneurysm. He has 3 other sisters with no major medical problems. Brother(s) Additional Family Medical History / Comment(s): Patient has 3 brothers and one has history of coronary artery disease status post CABG and lap band surgery. Son(s) Additional Family Medical History / Comment(s): Patient has one son with history of drug and alcohol addiction. Medications and Allergies Home Medications Medication Instructions Recorded Confirmed Type Bumetanide [BUMEX] 2 mg PO BID 08/02/16 01/05/18 History Potassium Chloride ER [K-Dur 20] 40 meq PO DAILY 08/02/16 01/05/18 History Nitroglycerin Sl Tabs [Nitrostat] 0.4 mg SUBLINGUAL Q5M PRN #50 12/20/16 Rx Albuterol Inhaler [Ventolin Hfa 2 puff INHALATION RT-Q4H PRN 06/24/17 01/05/18 History Inhaler] Ipratropium [place] [Atrovent Hfa] 2 puff INHALATION RT-BID 06/24/17 01/05/18 History Methocarbamol [Robaxin-750] 750 mg PO Q8H PRN 06/24/17 01/05/18 History oxyCODONE HCL/ACETAMINOPHEN 1 tab PO Q6HR PRN 06/24/17 01/05/18 History [Percocet 10-325 mg] Calcium Carbonate/Vitamin D3 1 tab PO DAILY 07/27/17 01/05/18 History [Calcium 600-Vit D3 400 Caplet] Docusate [Colace] 100 mg PO BID 07/27/17 01/05/18 History Albuterol Nebulized [Ventolin 2.5 mg INHALATION RT-Q6H PRN 09/01/17 01/05/18 History Nebulized] Ngoc-Yme 2 cap PO DAILY 09/01/17 01/05/18 History Lung Formula 2 tab PO BID 09/01/17 01/05/18 History Magnesium Gluconate [Magonate] 1,000 mg PO DAILY 09/01/17 01/05/18 History Metoprolol Succinate (ER) [Toprol 50 mg PO DAILY 09/01/17 01/05/18 History XL] Zinc,Mag Plus 1 tab PO DAILY 09/01/17 01/05/18 History buPROPion HCL [Wellbutrin SR] 150 mg PO BID 09/01/17 01/05/18 History Montelukast [Singulair] 10 mg PO HS #30 tab 09/04/17 01/05/18 Rx Nicotine 14Mg/24Hr Patch [Habitrol] 1 patch TRANSDERM Q24H #30 patch 09/04/17 Rx guaiFENesin [Mucinex] 1,200 mg PO Q12HR tablet.er 09/04/17 01/05/18 Rx Acetaminophen Tab [Tylenol] 1,000 mg PO Q6HR PRN tab 01/05/18 Rx Gabapentin [Neurontin] 300 mg PO Q8H PRN 01/05/18 01/05/18 History Leflunomide [Arava] 20 mg PO DAILY 01/05/18 01/05/18 History Melatonin 10 mg PO HS tablet 01/05/18 Rx Multivitamin [Men's Multi-Vitamin] 1 tab PO DAILY 01/05/18 01/05/18 History Rivaroxaban [Xarelto] 20 mg PO DAILY 01/05/18 01/05/18 History Allergies Allergy/AdvReac Type Severity Reaction Status Date / Time hydrocodone [From [place]] Allergy Rash/Hives Verified 01/04/18 22:23 Physical Exam Vitals: Vital Signs Temp Pulse Pulse Resp BP BP Pulse Ox 01/05/18 11:34 84 17 116/68 97 01/05/18 09:10 96 01/05/18 07:44 88 17 01/05/18 07:43 96.9 F L 88 17 122/70 96 01/05/18 07:39 90 01/05/18 07:30 94 95 01/05/18 04:00 95 16 134/69 95 01/05/18 02:40 96 01/05/18 01:34 97 F L 81 16 127/80 96 01/05/18 01:18 80 20 114/58 97 01/04/18 23:43 74 18 130/74 98 01/04/18 22:21 97.4 F L 97 18 139/88 95 Intake and Output 01/04/18 01/05/18 01/05/18 22:59 06:59 14:59 Intake Total 600 Output Total 250 Balance 350 Intake: Oral 600 Output: Urine 250 Other: Voiding Method Urinal Urinal # Voids 1 Weight 118.841 kg 118.3 kg - Constitutional General appearance: cooperative, no acute distress - EENT Eyes: anicteric sclerae, PERRLA, dentition normal, normal appearance ENT: NA/AT, normal oropharynx - Neck Neck: normal ROM - Respiratory Respiratory: bilateral: CTA, negative: prolonged expiration, prolonged inspiration - Cardiovascular Rhythm: regular Heart sounds: normal: S1, S2 Abnormal Heart Sounds: no systolic murmur, no diastolic murmur, no rub, no S3 Gallop, no S4 Gallop, no click, no other - Gastrointestinal General gastrointestinal: normal bowel sounds, soft - Integumentary Integumentary: decreased turgor, normal - Musculoskeletal Musculoskeletal: gait normal, strength equal bilaterally - Psychiatric Psychiatric: A&O x's 3, appropriate affect, intact judgment & insight Results CBC & Chem 7: 01/04/18 22:26 01/04/18 22:26 Labs: Abnormal Lab Results - Last 24 Hours (Table) 01/04/18 01/04/18 01/04/18 Range/Units 22:26 22:26 22:26 WBC 11.8 H (3.8-10.6) k/uL RDW 16.7 H (11.5-15.5) % Neutrophils # 7.9 H (1.3-7.7) k/uL Chloride 109 H (98-107) mmol/L BUN 22 H (9-20) mg/dL Glucose 128 H (74-99) mg/dL Magnesium 2.4 H (1.6-2.3) mg/dL Total Creatine Kinase 54 L (55-170) U/L 01/05/18 01/05/18 Range/Units 04:25 09:47 WBC (3.8-10.6) k/uL RDW (11.5-15.5) % Neutrophils # (1.3-7.7) k/uL Chloride (98-107) mmol/L BUN (9-20) mg/dL Glucose (74-99) mg/dL Magnesium (1.6-2.3) mg/dL Total Creatine Kinase 41 L 42 L (55-170) U/L Laboratory Results WBC 11.8 k/uL (3.8-10.6) H 01/04/18 22:26 RBC 5.57 m/uL (4.30-5.90) 01/04/18 22:26 Hgb 14.4 gm/dL (13.0-17.5) 01/04/18 22:26 Hct 46.3 % (39.0-53.0) 01/04/18: MCV 83.1 fL (80.0-100.0) 01/04/18: MCH 25.9 pg (25.0-35.0) 01/04/18: MCHC 31.1 g/dL (31.0-37.0) 01/04/18: RDW 16.7 % (11.5-15.5) H 01/04/18: Plt Count 261 k/uL (150-450) 01/04/18 22: Neutrophils % 67 % 01/04/18: Lymphocytes % 23 % 01/04/18: Monocytes % 7 % 01/04/18: Eosinophils % 2 % 01/04/18: Basophils % 0 % 01/04/18: Neutrophils # 7.9 k/uL (1.3-7.7) H 01/04/18: Lymphocytes # 2.8 k/uL (1.0-4.8) 01/04/18 22: Monocytes # 0.8 k/uL (0-1.0) 01/04/18: Eosinophils # 0.2 k/uL (0-0.7) 01/04/18: Basophils # 0.1 k/uL (0-0.2) 01/04/18 22: Hypochromasia Slight 01/04/18: Anisocytosis Slight 01/04/18: PT 10.2 sec (9.0-12.0) 01/04/18: INR 1.0 (<1.2) 01/04/18: APTT 25.6 sec (22.0-30.0) 01/04/18: D-Dimer 0.52 mg/L FEU (<0.60) 01/04/18 22: Sodium 142 mmol/L (137-145) 01/04/18: Potassium 4.3 mmol/L (3.5-5.1) 01/04/18: Chloride 109 mmol/L (98-107) H 01/04/18: Carbon Dioxide 22 mmol/L (22-30) 01/04/18 22:26 Anion Gap 11 mmol/L 01/04/18 22:26 BUN 22 mg/dL (9-20) H 01/04/18 22:26 Creatinine 0.70 mg/dL (0.66-1.25) 01/04/18 22:26 Est GFR (CKD-EPI)AfAm >90 (>60 ml/min/1.73 sqM) 01/04/18 22:26 Est GFR (CKD-EPI)NonAf >90 (>60 ml/min/1.73 sqM) 01/04/18 22:26 Glucose 128 mg/dL (74-99) H 01/04/18 22:26 Calcium 9.0 mg/dL (8.4-10.2) 01/04/18 22:26 Magnesium 2.4 mg/dL (1.6-2.3) H 01/04/18 22:26 Total Bilirubin 0.3 mg/dL (0.2-1.3) 01/04/18 22:26 AST 24 U/L (17-59) 01/04/18 22:26 ALT 30 U/L (21-72) 01/04/18 22:26 Alkaline Phosphatase 73 U/L (38-126) 01/04/18 22:26 Total Creatine Kinase 42 U/L (55-170) L 01/05/18 09:47 CK-MB (CK-2) 0.5 ng/mL (0.0-2.4) 01/05/18 09:47 CK-MB (CK-2) Rel Index 1.2 01/05/18 09:47 Troponin I <0.012 ng/mL (0.000-0.034) 01/05/18 09:47 Total Protein 6.6 g/dL (6.3-8.2) 01/04/18 22:26 Albumin 3.5 g/dL (3.5-5.0) 01/04/18 22:26 Thrombosis Risk Factor Assmnt - Choose All That Apply Any of the Below Risk Factors Present?: Yes Each Factor Represents 1 point: Abnormal pulmonary function (COPD), Age 41-60 years, Obesity (BMI >25) Other Risk Factors: Yes Each Risk Factor Represents 3 Points: History of DVT/PE Other congenital or acquired thrombophilia - If yes, enter type in comment: No Thrombosis Risk Factor Assessment Total Risk Factor Score: 6 Thrombosis Risk Factor Assessment Level: High Risk Assessment and Plan Plan: 1. Atypical chest pain, prior history off pulmonary infarct, prior history of pulmonary emboli without any relapse, d-dimer is negative, ruled out myocardial infarction, no evidence of aortic dissection, no pneumothorax on examination no vasculitic rash and examination, no shingles on examination., Cardiology to follow with outpatient stress test, however in view of the kyphoplasty procedure on 01/09/2018, and this needs to be done with a Lexiscan or dobutamine stress echo instead of the treadmill test. 2. COPD without exacerbation counseled requiring a permanent smoking cessation program 3 Pulmonary infarct with recent bilateral saddle pulmonary embolism status post transferred to [facility] and thrombectomy. Continuen Xarelto. Consult with Dr. Bernstein. 3. Recent lumbar spine surgery. Stable at this point in time. continue with current pain management. 4. Rheumatoid arthritis. Patient has been on Xeljanz 5 mg orally twice every day. 5. Degenerative disc disease. Continue gabapentin 600 mg orally 3 times every day. 6. History of pulmonary embolism with recurrent saddle pulmonary embolism no current exacerbation during this admission. Continue Xarelto. 7. Obstructive sleep apnea. As per Dr. Mcguire/Penny Shore following, compliance to outpatient follow-up and testing as well as CPAP use He has follow-up with his sleep doctor in September. He has recently lost 18 pounds. 8. Hypertension and hypertensive cardiovascular disease. continue metoprolol 9. Lack of endurance and stamina, counseled regarding other causes for it, elected testosterone level to be done as an outpatient discussed with the patient also other metabolic conditions to be done, and improvement of his tobacco cessation program 10. DVT prophylaxis. On xarelto currently on hold for planned procedure for kyphoplasty on 01/09/2018, Xarelto thereafter would be maintained at prophylactic dose 11. Gastrointestinal prophylaxis. Continue with Protonix 40 mg daily. 12. Patient is full code. Discharge condition stable and improved Discharge Medication List Bumetanide [BUMEX] 2 mg PO BID 08/02/16 [History] Potassium Chloride ER [K-Dur 20] 40 meq PO DAILY 08/02/16 [History] Nitroglycerin Sl Tabs [Nitrostat] 0.4 mg SUBLINGUAL Q5M PRN #50 12/20/16 [Rx] Albuterol Inhaler [Ventolin Hfa Inhaler] 2 puff INHALATION RT-Q4H PRN 06/24/17 [ History] Ipratropium [place] [Atrovent Hfa] 2 puff INHALATION RT-BID 06/24/17 [History] Methocarbamol [Robaxin-750] 750 mg PO Q8H PRN 06/24/17 [History] oxyCODONE HCL/ACETAMINOPHEN [Percocet 10-325 mg] 1 tab PO Q6HR PRN 06/24/17 [ History] Calcium Carbonate/Vitamin D3 [Calcium 600-Vit D3 400 Caplet] 1 tab PO DAILY [History] Docusate [Colace] 100 mg PO BID 07/27/17 [History] Albuterol Nebulized [Ventolin Nebulized] 2.5 mg INHALATION RT-Q6H PRN 09/01/17 [ History] Ngoc-Yme 2 cap PO DAILY 09/01/17 [History] Lung Formula 2 tab PO BID 09/01/17 [History] Magnesium Gluconate [Magonate] 1,000 mg PO DAILY 09/01/17 [History] Metoprolol Succinate (ER) [Toprol XL] 50 mg PO DAILY 09/01/17 [History] Zinc,Mag Plus 1 tab PO DAILY 09/01/17 [History] buPROPion HCL [Wellbutrin SR] 150 mg PO BID 09/01/17 [History] Montelukast [Singulair] 10 mg PO HS #30 tab 09/04/17 [Rx] Nicotine 14Mg/24Hr Patch [Habitrol] 1 patch TRANSDERM Q24H #30 patch 09/04/17 [ Rx] guaiFENesin [Mucinex] 1,200 mg PO Q12HR tablet.er 09/04/17 [Rx] Acetaminophen Tab [Tylenol] 1,000 mg PO Q6HR PRN tab 01/05/18 [Rx] Gabapentin [Neurontin] 300 mg PO Q8H PRN 01/05/18 [History] Leflunomide [Arava] 20 mg PO DAILY 01/05/18 [History] Melatonin 10 mg PO HS tablet 01/05/18 [Rx] Multivitamin [Men's Multi-Vitamin] 1 tab PO DAILY 01/05/18 [History] Rivaroxaban [Xarelto] 20 mg PO DAILY 01/05/18 [History]
[2018-01-05] MEDS ORDERED: MONTELUKAST 10 MG TAB PO SCH (21:00)
[2018-01-05] MEDS ORDERED: MELATONIN 5 MG TABLET PO SCH (21:00)
[2018-01-06] MEDS ORDERED: ASPIRIN 325 MG TAB PO SCH (09:00)
== END 2018-01-05 14:45 | disposition home or self-care (01) ==
LOC: EC 22:18 → 6SEL 01-05 00:53
PROVIDERS: ADMIT Family Medicine; ATTEND Family Medicine
DX: R07.89 Other chest pain (principal); J44.9 Chronic obstructive pulmonary disease, unspecified; I25.10 Atherosclerotic heart disease of native coronary artery without angina pectoris; I11.0 Hypertensive heart disease with heart failure; I50.9 Heart failure, unspecified; M48.54XA Collapsed vertebra, not elsewhere classified, thoracic region, initial encounter for fracture; M06.9 Rheumatoid arthritis, unspecified; F17.210 Nicotine dependence, cigarettes, uncomplicated; G47.33 Obstructive sleep apnea (adult) (pediatric); Z99.89 Dependence on other enabling machines and devices; E78.5 Hyperlipidemia, unspecified; G89.29 Other chronic pain; M54.9 Dorsalgia, unspecified; E66.9 Obesity, unspecified; Z68.37 Body mass index [BMI] 37.0-37.9, adult; Z79.01 Long term (current) use of anticoagulants; Z79.899 Other long term (current) drug therapy; Z88.5 Allergy status to narcotic agent; Z86.711 Personal history of pulmonary embolism; Z86.718 Personal history of other venous thrombosis and embolism; Z98.84 Bariatric surgery status; Z98.1 Arthrodesis status; Z86.010 Personal history of colon polyps; Z80.3 Family history of malignant neoplasm of breast; Z82.49 Family history of ischemic heart disease and other diseases of the circulatory system; Z82.5 Family history of asthma and other chronic lower respiratory diseases; Z83.2 Family history of diseases of the blood and blood-forming organs and certain disorders involving the immune mechanism; Z80.1 Family history of malignant neoplasm of trachea, bronchus and lung; Z82.3 Family history of stroke; Z81.1 Family history of alcohol abuse and dependence
CPT/HCPCS: 99285 ×2; 96374 ×2; 96376; 36415; 94640; 94760; 93005; 85379; 80053; 82550 ×2; 82553 ×2; 83735; 84484 ×2; 85025; 85610; 85730; 71046; 71275; G0378; S4990; S0106; J2270 ×2; Q9967

== ENCOUNTER → 2019-10-01 | Outpatient (CLI) | payer OTHER ==
--- NOTE | 2019-10-01 09:58 | CT ---
EXAMINATION TYPE: CT chest wo con DATE OF EXAM: 10/01/2019 COMPARISON: CT chest November 29, 2017 and older CTs HISTORY: COPD, CHF, TALHA and RA CT DLP: 788.7 mGycm. Automated Exposure Control for Dose Reduction was Utilized. TECHNIQUE: CT scan of the thorax is performed without IV contrast. FINDINGS: LUNGS: Background [id number] underlying emphysematous change redemonstrated with additional are as of subpleural reticulation and bleb formation bilaterally without parenchymal lung involvement. No new areas of suspicious consolidation or groundglass opacity. No concerning masses. No pleural effus ion or pneumothorax. MEDIASTINUM: Lack of IV contrast is noted to limit evaluation for mediastinal and especially hilar ad enopathy. There are prominent thoracic lymph nodes identified. They are increasing in size from prior studies. Some are mildly enlarged for reference subcarinal lymph node measures 2.4 x 1.1 cm-29 incr eased from prior studies. 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 Ascending aorta measures up to 3.8 cm diameter image 27. Coronary artery calcification is present which is noted marked with underl annie coronary artery disease. No cardiomegaly or pericardial effusion is seen. OTHER: Moderate diffuse fat replaced atrophy of the pancreas. Stomach poorly distended and less subop timally evaluated. Bilateral subareolar gynecomastia again seen. IMPRESSION: Chronic emphysematous and parenchymal fibrotic changes without acute pulmonary process. N onspecific more prominent thoracic lymph nodes, correlate clinically. No suspicious pulmonary nodules or masses noted to suggest malignant etiology.
== END | disposition home or self-care (01) ==
LOC: RADCTMAIN 08:23
PROVIDERS: ATTEND Internal Medicine Pulmonary Disease
DX: J43.9 Emphysema, unspecified (principal); J84.10 Pulmonary fibrosis, unspecified; I50.9 Heart failure, unspecified; M06.9 Rheumatoid arthritis, unspecified
CPT/HCPCS: 71250